=== PATIENT | female | born 1975 ===

== ENCOUNTER 2019-12-05 09:50 | Outpatient (REF) | payer OTHER, SELFPAY ==
--- NOTE | 2019-12-05 10:04 | XR_ITS ---
EXAMINATION: XR LUMBOSACRAL SPINE CLINICAL INFORMATION: No sludge. COMPARISON: None TECHNIQUE: Three views of the lumbosacral spine. FINDINGS: There is normal lumbar lordosis. The vertebral heights, alignment and disc heights are normal. No visible acute fracture, dislocation or lytic process seen. There is mild loss of L2-L3 and L5-S1 disc heights with ventral spondylosis. No lytic or sclerotic process seen. XR/XR lumbar spine 2-3V IMPRESSION: No acute fracture, dislocation or subluxation. Mild degenerative disc changes L4-L5 disc level.
[2019-12-05 10:14] LABS: MANUAL DIFF FLAG NO
[2019-12-05 10:21] LABS: Basophils Percent Auto 0.6 % (0-2); Eosinophils Absolute Auto 0.1 X10*3/uL (0.0-0.4); Eosinophils Percent Auto 1.4 % (0-4); Hematocrit 33.2 % (37-47); Hemoglobin 9.8 g/dl (12.0-16.0); Imm Gran Abs Auto 0.02 X10*3/uL (0.00-0.03); Imm Gran Pct Auto 0.3 % (0.0-0.4); Lymphocytes Absolute Auto 1.9 X10*3/uL (1.2-4.9); Lymphocytes Percent Auto 27.7 % (20-40); Mean Corpuscular HGB Conc 29.5 g/dl (31.0-35.0); Mean Corpuscular Hemoglobin 22.3 pg (27.0-33.0); Mean Corpuscular Volume 75.5 fL (80-98); Mean Platelet Volume 9.9 fL (9.4-12.3); Monocytes Absolute Auto 0.4 X10*3/uL (0.1-1.2); Monocytes Percent Auto 6.4 % (2-11); Neutrophils Absolute Auto 4.4 X10*3/uL (2.0-8.3); Neutrophils Percent Auto 63.6 % (45-73); Platelet Count 469 X10*3/uL (160-400); Red Cell Distribution Width 18.2 % (11.0-16.0); White Blood Count 6.9 X10*3/uL (4.8-10.8)
[2019-12-05 10:51] LABS: Anion Gap 13 (12-20); Blood Urea Nitrogen 14 mg/dL (9-16); Calcium 8.7 mg/dL (8.4-10.2); Carbon Dioxide 25 mmol/L (22-29); Chloride 106 mmol/L (96-108); Estimated Glomerular Filt Rate > 60; Glucose Random 95 mg/dL (60-115); Potassium 4.4 mmol/l (3.3-5.1); Sodium 140 mmol/L (135-145)
== END 2019-12-05 09:51 | disposition home or self-care (01) ==
LOC: HO.LAB 09:50
PROVIDERS: Visit Provider Internal Medicine
DX: M54.9 Dorsalgia, unspecified (principal); R10.9 Unspecified abdominal pain; R51.9 Headache, unspecified
CPT/HCPCS: 36415; 72100; 80048; 85025

== ENCOUNTER 2019-12-17 10:10 | Outpatient (REF) | payer OTHER, SELFPAY ==
--- NOTE | 2019-12-17 10:14 | US_ITS ---
EXAMINATION: US ABDOMEN COMPLETE CLINICAL INFORMATION: Unspecified abdominal pain. COMPARISON: CT abdomen and pelvis without contrast dated 08/26/2013. MRI abdomen without and with contrast dated 12/16/2009. TECHNIQUE: Real-time imaging of the abdominal viscera. FINDINGS: PANCREAS: The head of the pancreas is normal-appearing. The body and tail are not well visualized due to bowel gas. ABDOMINAL AORTA: The proximal, mid, and distal segments are normal in caliber. INFERIOR VENA CAVA: Visualized portions are normal. LIVER: The liver is normal in size. The liver contour is normal. Parenchymal echogenicity is normal. There is a 1.6 x 2.1 x 1.8 cm hyperechoic lesion high in the right lobe of the liver. This likely corresponds to known hemangioma. No other focal liver lesion is seen. There is no intrahepatic biliary duct dilatation seen. GALLBLADDER: Surgically absent. COMMON BILE DUCT: Normal in caliber measuring 0.7 cm in diameter. RIGHT KIDNEY: Normal. No hydronephrosis. No renal calculi or focal parenchymal lesions. The kidney measures 12.1 cm in maximum dimension. LEFT KIDNEY: There is a 3 mm echogenic density with twinkle artifact in the upper pole of the left kidney questionable for a stone. No hydronephrosis. No focal parenchymal lesions. The kidney measures 11.5 cm in maximum dimension. SPLEEN: Normal. The spleen measures 9.7 cm in maximum dimension. FREE FLUID: None. US/US abdomen complete IMPRESSION: Post cholecystectomy. Echogenic lesion in the right lobe of the liver similar in size to previous exams likely corresponding to known hemangioma. Question small left renal stone.
== END 2019-12-17 10:11 | disposition home or self-care (01) ==
LOC: HO.US 10:10
PROVIDERS: Visit Provider Internal Medicine
DX: R10.9 Unspecified abdominal pain (principal)
CPT/HCPCS: 76700

== ENCOUNTER 2020-01-05 11:16 | Outpatient (REF) | payer OTHER, SELFPAY ==
[2020-01-06 09:17] LABS: CT PCR NOT DETECTED (Not Detect.); NG PCR NOT DETECTED (Not Detect.)
[2020-01-06 13:21] LABS: BV Int Neg Control Negative (Negative); BV Int Pos Control Positive (Positive)
== END 2020-01-05 11:17 | disposition home or self-care (01) ==
LOC: HO.LAB 11:16
PROVIDERS: Visit Provider Advanced Practice Midwife
DX: Z01.419 Encounter for gynecological examination (general) (routine) without abnormal findings (principal); Z20.2 Contact with and (suspected) exposure to infections with a predominantly sexual mode of transmission; R10.2 Pelvic and perineal pain; L65.9 Nonscarring hair loss, unspecified; R31.9 Hematuria, unspecified; D64.9 Anemia, unspecified; N76.0 Acute vaginitis; B96.89 Other specified bacterial agents as the cause of diseases classified elsewhere
CPT/HCPCS: 87480; 87491; 87510; 87591; 87660

== ENCOUNTER 2020-01-05 13:31 | Outpatient (REF) | payer OTHER, SELFPAY ==
[2020-01-05 15:29] LABS: Thyroid Stimulating Hormone 0.94 uIU/mL (0.32-4.0)
[2020-01-05 16:46] LABS: Syphilis Screen Nonreactive (Nonreactive)
[2020-01-06 04:41] LABS: HBsAGNum1 0.53 S/CO (0.00-0.99); HIV AB/AG Nonreactive (Nonreactive); HIV Num 1 0.11 S/CO (0.00-0.99); Hepatitis B Surface Antigen Negative (Negative); ~Hepatitis C Antibody Nonreactive (Nonreactive)
== END 2020-01-05 13:32 | disposition home or self-care (01) ==
LOC: HO.LAB 13:31
PROVIDERS: PCP Internal Medicine; Visit Provider Advanced Practice Midwife
DX: Z20.2 Contact with and (suspected) exposure to infections with a predominantly sexual mode of transmission (principal); D64.9 Anemia, unspecified; L65.9 Nonscarring hair loss, unspecified
CPT/HCPCS: 84443; 86780; 86803; 87340; 87389

== ENCOUNTER 2020-03-31 11:54 | Outpatient (REF) | payer OTHER, SELFPAY ==
[2020-03-31 12:58] LABS: MANUAL DIFF FLAG NO
[2020-03-31 13:02] LABS: Basophils Percent Auto 0.4 % (0-2); Eosinophils Percent Auto 0.5 % (0-4); Hematocrit 28.6 % (37-47); Imm Gran Abs Auto 0.03 X10*3/uL (0.00-0.03); Imm Gran Pct Auto 0.4 % (0.0-0.4); Lymphocytes Absolute Auto 1.9 X10*3/uL (1.2-4.9); Lymphocytes Percent Auto 25.8 % (20-40); Mean Corpuscular Hemoglobin 20.1 pg (27.0-33.0); Mean Corpuscular Volume 71.9 fL (80-98); Monocytes Absolute Auto 0.5 X10*3/uL (0.1-1.2); Monocytes Percent Auto 6.3 % (2-11); Neutrophils Percent Auto 66.6 % (45-73); Platelet Count 499 X10*3/uL (160-400); Red Blood Count 3.98 X10*6/uL (4.20-5.50); Red Cell Distribution Width 17.5 % (11.0-16.0); White Blood Count 7.5 X10*3/uL (4.8-10.8)
[2020-03-31 13:27] LABS: Iron 15 mcg/dL (30-160); Percent Iron Saturation 3 % (15-50); Total Iron Binding Capacity 474 mcg/dL (228-428); Unsaturated Iron Binding 459 ug/dL
[2020-03-31 13:59] LABS: Ferritin < 1 ng/mL (10-250)
== END 2020-03-31 11:55 | disposition home or self-care (01) ==
LOC: HO.LAB 11:54
PROVIDERS: PCP Internal Medicine; Visit Provider Internal Medicine
DX: D50.9 Iron deficiency anemia, unspecified (principal)
CPT/HCPCS: 36415; 82728; 83540; 85025

== ENCOUNTER 2020-04-12 17:38 | Emergency (ER) | payer OTHER, SELFPAY ==
--- NOTE | ~2020-04-12 | XR_ITS ---
Examination: XR forearm RT 2V, XR elbow RT 2V Indication: pain, distal swelling Comparison: No pertinent prior studies are currently available for comparison. Technique: 2 views of the right forearm and 2 additional views of the right elbow obtained Findings: No significant elbow joint effusion. Bones are normal anatomic alignment. I do not appreciate any acute fracture or dislocation on these images. Surrounding soft tissue grossly unremarkable. No radiopaque foreign body seen. XR/XR forearm RT 2V Impression: No acute bony abnormality.
--- NOTE | ~2020-04-12 | XR_ITS ---
Examination: XR forearm RT 2V, XR elbow RT 2V Indication: pain, distal swelling Comparison: No pertinent prior studies are currently available for comparison. Technique: 2 views of the right forearm and 2 additional views of the right elbow obtained Findings: No significant elbow joint effusion. Bones are normal anatomic alignment. I do not appreciate any acute fracture or dislocation on these images. Surrounding soft tissue grossly unremarkable. No radiopaque foreign body seen. XR/XR elbow RT 2V Impression: No acute bony abnormality.
[2020-04-12 17:46] VITALS: BP 118/83; PULSE 94; RESP 16; TEMP 36.6; O2SAT 100; BMI 31.3
--- NOTE | 2020-04-12 19:15 | ED.EXTPRO ---
HPI - Extremity Problem General Chief complaint: Extremity Problem Stated complaint: arm pain Time Seen by Provider: 04/12/20 18:51 Source: patient Mode of arrival: ambulatory Limitations: no limitations History of Present Illness HPI Narrative: 44 yo healthy female presenting with non-traumatic right arm pain for the last 3 weeks. She reports it initially started in her under arm area and then went away. It is now in her right elbow and forearm with swelling in both areas. She denies trauma or injury. No numbness, tingling or weakness. She has pain when trying to lift things as small as milk carton. No fever or chills. She has not taken any medications for the pain. MD Complaint: extremity pain and extremity swelling Onset (ago): week(s) (3) Pain Consistency: constant Location: right, upper extremity and elbow Quality: aching and dull Radiation: distal Relieving factors: cold therapy and rest Exacerbating factors: range of motion and palpation Associated symptoms: denies other symptoms Related Data Home Medications Medication Instructions Recorded Confirmed multivitamin with iron 1 tab PO DAILY 03/31/20 Previous Rx's Medication Instructions Recorded metronidazole 0.75 % vaginal gel 1 appful VAGINAL BEDTIME 5 Days 01/05/20 #70 g ibuprofen 600 mg PO Q8H PRN #20 tab 04/12/20 lidocaine [Lidoderm] 1 patch TOPICAL DAILY #15 ea 04/12/20 Allergies Allergy/AdvReac Type Severity Reaction Status Date / Time No Known Allergies Allergy Mild NOT Verified 03/31/20 10:55 APPLICABLE Review of Systems Review of Systems: Constitutional: No Fever, No Chills Musculoskeletal: + joint pain, + Myalgias Skin: No Skin Lesions, No rash Neuro: No Weakness, No Numbness, No Headache Psych: No Anxiety/Panic, No Depression Heme/Lymph: No Bruising, No Lymphadenopathy PMFSH Past Medical History Attestation statement: The following information was validated with the patient. Surgical History History of cholecystectomy Family History Family History Father No problems noted. Mother Diabetes Hypertension Sister Asthma Family history of thyroid problem Social History Social History (Updated 03/31/20 @ 10:56 by Jigna C Oc, RMA) Alcohol intake: current Alcohol intake frequency: holidays/special occasions only Smoking Status: Current every day smoker Tobacco Type: Cigarette Cigarettes Per Day: 10 Advance Directives: No Advance Directives Information Provided: Yes Physical Exam Vital Signs: Vital Signs: Last Vital Signs Temp 97.9 F 04/12/20 17:46 Pulse 94 04/12/20 17:46 Resp 16 04/12/20 17:46 BP 118/83 04/12/20 17:46 Pulse Ox 100 04/12/20 17:46 Body Mass Index 31.3 Appearance: Alert. Oriented X3. No acute distress. HEENT: normal inspection CVS: Normal heart rate and rhythm. Pulses normal. Respiratory: No respiratory distress. Skin: Skin warm and dry. Normal skin color. Normal skin turgor. No rashes. Extremities: right arm with lateral elbow swelling within the lateral epicondyle at extensor tendon insertion site, mild distal forearm swelling with minimal tenderness, warm and well perfused with 2+ radial pulse. normal associate director qa strength, normal ROM of wrist and fingers, normal but painful ROM of the right elbow. right shoulder is unremarkable. Neuro: Oriented X 3. No motor deficit. No sensory deficit. Course Course Course Narrative: 44 y/o female presenting with right arm pain - elbow and forearm. Exam is consistent with lateral tendonitis, given swelling will get x-rays. Doubt UE DVT, no risk factors. Reevaluation(s) Reevaluation #1: XR's are negative. Will treat for acute tennis elbow and refer to ortho if no improvement. Patient counseled and is stable for discharge. Critical Care Time Critical Care Time Critical Care Time: No Discharge Plan Discharge Clinical Impression: Epicondylitis, lateral (tennis elbow) Qualifiers: Laterality: right Qualified Code(s): M77.11 - Lateral epicondylitis, right elbow Patient Disposition: Home, Self-Care Instructions: Tennis Elbow (ED) Additional Instructions: Your x-rays today were normal. Your pain is likely due to inflammation and swelling of the tendon in your elbow. Take the prescribed anti-inflammatory medication every 6 hours as needed for pain and swelling. Use ice several times per day. Limit use of your right arm, let it rest and heal. Follow up with Orthopedics in 1 week if no improvement. Follow up with your doctor this week as needed. Prescriptions: New ibuprofen 600 mg tablet 600 mg PO Q8H PRN (Reason: pain) Qty: 20 RF: 0 lidocaine [Lidoderm] 5 % adhesive patch,medicated 1 patch topical DAILY Qty: 15 RF: 0 No Action multivitamin with iron [Hair Vitamins] Tablet 1 tab PO DAILY RF: 0 metronidazole [Metrogel Vaginal] 0.75 % gel 1 appful vaginal BEDTIME 5 Days Qty: 70 RF: 4 Referrals: Brayan Atkinson MD [Physician] - 2 days (lateral epicondylitis )
[2020-04-12 20:26] VITALS: BP 114/77; PULSE 95; RESP 16; O2SAT 100
[2020-04-12] MEDS: Ibuprofen 600 MG TABLET PO (20:30)
== END 2020-04-12 20:35 | disposition home or self-care (01) ==
PROVIDERS: Emergency Provider Internal Medicine; PCP Internal Medicine
DX: M77.11 Lateral epicondylitis, right elbow (principal); F17.210 Nicotine dependence, cigarettes, uncomplicated
CPT/HCPCS: 73070; 73090; 99283; 99284

== ENCOUNTER 2020-05-05 13:52 | Outpatient (REF) | payer OTHER, SELFPAY ==
--- NOTE | ~2020-05-05 | US_ITS ---
EXAMINATION: ULTRASOUND OF THE PELVIS CLINICAL INFORMATION: Pelvic and perineal pain. COMPARISON: CT 08/26/2013. TECHNIQUE: Transabdominal and transvaginal pelvic ultrasound. A transvaginal study was performed in addition to the transabdominal study which did not yield an adequate examination of the uterus and ovaries due to superimposed distended gas-filled loops of bowel. FINDINGS: The uterus is normal in size and appearance, measuring 8.4 x 4.8 x 6.7 cm longitudinally, anteroposteriorly and transversely. The endometrial stripe thickness is prominent, measuring 1.8 cm in thickness. No focal myometrial mass is seen. Nabothian cysts are noted. The ovaries bilaterally are visualized and appear normal, with the right ovary measuring 2.4 x 1.3 x 1.2 cm and the left ovary measuring 2.9 x 2.2 x 2 cm. There is a dominant left ovarian follicle noted. No adnexal mass or free fluid collection seen. US/US pelvic and transvaginal IMPRESSION: Thick appearance of the endometrium is nonspecific. Correlate with phase of cycle. Normal appearance of the ovaries.
== END 2020-05-05 13:53 | disposition home or self-care (01) ==
LOC: HO.US 13:52
PROVIDERS: PCP Internal Medicine; Visit Provider Advanced Practice Midwife
DX: R10.2 Pelvic and perineal pain (principal)
CPT/HCPCS: 76830; 76856

== ENCOUNTER → 2020-05-12 13:36 | Outpatient (BNVA) | payer OTHER, SELFPAY | PROVIDERS: PCP Internal Medicine; Visit Provider Advanced Practice Midwife ==

== ENCOUNTER 2020-10-02 19:21 | Emergency (ER) | payer OTHER, SELFPAY ==
[2020-10-02 19:45] VITALS: BP 127/82; PULSE 88; RESP 16; TEMP 36.8; BMI 31.3
[2020-10-02 20:05] LABS: Glucose Urine UA NEG (NEG); Leukocyte Esterase Urine NEG (NEG); Nitrite Urine NEG (NEG); Specific Gravity - Urine >= 1.030 (1.005-1.025); UACC Culture Trigger NO; Urine Blood 3+ (NEG); Urine Ketones 5 MG/DL (NEG); Urine Protein TRACE MG/DL (NEG-TRACE)
[2020-10-02 20:08] LABS: Appearance Urine HAZY; Color Urine YELLOW; UPreg QC Valid YES; Urine Pregnancy NEGATIVE (NEGATIVE)
[2020-10-02 20:16] LABS: Amorphous Sediment Urine TRACE /LPF; Bacteria Urine TRACE /LPF; Mucus Urine 3+ /LPF; Squamous Epithelial Cell Urine 2+ /LPF; WBC Urine 0 /HPF (0-4)
[2020-10-02 20:50] LABS: MANUAL DIFF FLAG NO
[2020-10-02 20:51] LABS: Basophils Percent Auto 0.5 % (0-2); Eosinophils Absolute Auto 0.1 X10*3/uL (0.0-0.4); Eosinophils Percent Auto 1.1 % (0-4); Hemoglobin 8.1 g/dl (12.0-16.0); Imm Gran Abs Auto 0.03 X10*3/uL (0.00-0.03); Imm Gran Pct Auto 0.4 % (0.0-0.4); Lymphocytes Absolute Auto 1.9 X10*3/uL (1.2-4.9); Lymphocytes Percent Auto 23.3 % (20-40); Mean Corpuscular HGB Conc 28.9 g/dl (31.0-35.0); Mean Corpuscular Hemoglobin 20.8 pg (27.0-33.0); Mean Platelet Volume 9.4 fL (9.4-12.3); Monocytes Absolute Auto 0.5 X10*3/uL (0.1-1.2); Monocytes Percent Auto 5.7 % (2-11); Neutrophils Absolute Auto 5.7 X10*3/uL (2.0-8.3); Platelet Count 443 X10*3/uL (160-400); Red Blood Count 3.89 X10*6/uL (4.20-5.50); White Blood Count 8.3 X10*3/uL (4.8-10.8)
[2020-10-02 21:17] LABS: Alanine Aminotransferase 15 U/L (0-31); Albumin Level 4.2 g/dL (3.5-5.0); Alkaline Phosphatase 93 U/L (39-117); Anion Gap 13 (12-20); Aspartate Amino Transferase 21 U/L (5-31); Bilirubin Total 0.3 mg/dL (0.0-1.0); Blood Urea Nitrogen 10 mg/dL (9-16); Calcium 9.1 mg/dL (8.4-10.2); Carbon Dioxide 22 mmol/L (22-29); Chloride 108 mmol/L (96-108); Creatinine Clr Calc Pharmacy 85.5; Estimated Glomerular Filt Rate > 60; Glucose Random 86 mg/dL (60-115); Potassium 4.4 mmol/L (3.3-5.1); Sodium 139 mmol/L (135-145); Total Protein 7.3 g/dL (6.5-8.0)
--- NOTE | 2020-10-02 21:31 | ED.ABDPAIN ---
HPI - Abdominal Pain General Chief Complaint: Abdominal Pain Stated Complaint: Dental mouth/Left sided pain Time Seen by Provider: 10/02/20 21:31 Source: patient Mode of arrival: ambulatory History of Present Illness HPI narrative: 45-year-old female with presentation for ulceration to the right posterior portion of the hard palate, patient wears dentures, this ulceration has been ongoing for 1 week and patient states started off with ?a cut?. She denies any fevers, chills but states that she is having pain into the nose and right cheek. She states she has a bad taste in her mouth, but has continued to wear her dentures. In addition, patient is concerned regarding 6 weeks of menstrual bleeding. She knows that she has menorrhagia NANDO with uterine fibroids but states that this time it is been lasting longer than usual. Patient endorses that she has been offered control previously but has declined and the iron pills that she has been provided she stop taking because they were making her nauseous. She denies feeling dizzy but states that she does feel fatigued. She is also concerned about 3 weeks left flank discomfort that has not been associated with any fever, chills, nausea, vomiting, change of bowel habits. Related Data Home Medications Medication Instructions Recorded Confirmed multivitamin with iron (Hair 1 tab PO DAILY 03/31/20 Vitamins) Previous Rx's Medication Instructions Recorded metronidazole 0.75 % vaginal gel 1 appful VAGINAL BEDTIME 5 Days 01/05/20 (Metrogel Vaginal) #70 g ibuprofen 600 mg tablet 600 mg PO Q8H PRN #20 tab 04/12/20 lidocaine 5 % topical patch 1 patch TOPICAL DAILY #15 ea 04/12/20 (Lidoderm) ferrous sulfate 325 mg (65 mg 325 mg PO BID #180 tab 05/10/20 iron) tablet amoxicillin 875 mg-potassium 1 tab PO Q12H 5 Days #10 tab 10/02/20 clavulanate 125 mg tablet (Augmentin) Allergies Allergy/AdvReac Type Severity Reaction Status Date / Time No Known Allergies Allergy Mild NOT Verified 10/02/20 19:45 APPLICABLE Review of Systems Review of Systems Pertinent positives and negatives as stated in HPI 10 point review of systems is otherwise negative. Physical Exam Vital Signs: Vital Signs: Last Vital Signs Temp 98.2 F 10/02/20 21:52 Pulse 75 10/02/20 21:52 Resp 18 10/02/20 21:52 BP 108/65 10/02/20 21:52 Pulse Ox 94 10/02/20 21:52 Body Mass Index 31.3 VITAL SIGNS: Reviewed. GENERAL: Well developed, well nourished, in no acute distress. HEAD: Normocephalic/atraumatic EYES: PERRLA, EOMI EARS: Ext canals without abnormality NOSE: Nares patent bilateral, on gross inspection no ulcerations noted an either nare OROPHARYNX: no oral lesions noted, posterior pharynx clear and non-erythematous without noted tonsillar enlargement/erythema/exudates, ulceration noted to the right posterior hard palate with overlying yellowish tissue NECK: Supple, no adenopathy LUNGS: Normal breath sounds. No adventitious sounds or accessory muscle use. CARDIOVASCULAR: Regular rate and rhythm without noted murmurs ABDOMEN: Soft, non-tender, non-distended with bowel sounds. SKIN: Inspection of the skin reveals no rashes, pallor NEUROLOGIC: Alert and oriented x 4. Strength and sensation to light touch were grossly intact x 4. Course Course Course Narrative: 45-year-old female with history and clinical presentation concerning for pressure ulcer to the right hard palate and will be started on antibiotics with strict instructions to follow-up with dentistry on Sunday morning. Otherwise, patient with menorrhagia and although experiencing fatigue she is neither dizzy nor hypoxic or tachypneic and review of lab work is absent for tachycardia or hypotension. Patient does have good follow-up this Sunday with her broadband installer and we discussed the importance of her moving forward with definitive medical interventions in the form of control as she is uninterested an surgical interventions. MDM - Abdominal Pain Lab Data Result diagrams: 10/02/20 20:46 10/02/20 20:46 Labs: Lab Results 10/02/20 10/02/20 10/02/20 Range/Units 20:00 20:00 20:46 WBC 8.3 (4.8-10.8) X10*3/uL RBC 3.89 L (4.20-5.50) X10*6/uL Hgb 8.1 L (12.0-16.0) g/dl Hct 28.0 L (37-47) % MCV 72.0 L (80-98) fL MCH 20.8 L (27.0-33.0) pg MCHC 28.9 L (31.0-35.0) g/dl RDW 21.0 H (11.0-16.0) % Plt Count 443 H (160-400) X10*3/uL MPV 9.4 (9.4-12.3) fL Immature Gran % (Auto) 0.4 (0.0-0.4) % Neut % (Auto) 69.0 (45-73) % Lymph % (Auto) 23.3 (20-40) % [place] % (Auto) 5.7 (2-11) % Eos % (Auto) 1.1 (0-4) % Baso % (Auto) 0.5 (0-2) % Lymph # (Auto) 1.9 (1.2-4.9) X10*3/uL [place] # (Auto) 0.5 (0.1-1.2) X10*3/uL Eos # (Auto) 0.1 (0.0-0.4) X10*3/uL Baso # (Auto) 0.0 (0.0-0.2) X10*3/uL Abs Immat Gran (auto) 0.03 (0.00-0.03) X10*3/uL Absolute Neuts (auto) 5.7 (2.0-8.3) X10*3/uL Absolute Nucleated RBC 0.000 (0.0-0.012) X10*3/uL Nucleated RBC % (auto) 0.0 (0.0-0.2) /100WBC Sodium (135-145) mmol/L Potassium (3.3-5.1) mmol/L Chloride (96-108) mmol/L Carbon Dioxide (22-29) mmol/L Anion Gap (12-20) BUN (9-16) mg/dL Creatinine (0.5-1.4) mg/dL Estim Creat Clear Calc Estimated GFR Random Glucose (60-115) mg/dL Calcium (8.4-10.2) mg/dL Total Bilirubin (0.0-1.0) mg/dL AST (5-31) U/L ALT (0-31) U/L Alkaline Phosphatase (39-117) U/L Total Protein (6.5-8.0) g/dL Albumin (3.5-5.0) g/dL Urine Color YELLOW Urine Appearance HAZY Urine pH 6.0 (5.0-8.0) Ur Specific [place] >= 1.030 H (1.005-1.025) Urine Protein TRACE (NEG-TRACE) MG/DL Urine Glucose (UA) NEG (NEG) MG/DL Urine Ketones 5 (NEG) MG/DL Urine Blood 3+ H (NEG) Urine Nitrite NEG (NEG) Ur Leukocyte Esterase NEG (NEG) Urine RBC 15-29 H (0) /HPF Urine WBC 0 (0-4) /HPF Ur Squamous Epith Cells 2+ /LPF Amorphous Sediment TRACE /LPF Urine Bacteria TRACE /LPF Urine Mucus 3+ /LPF Urine Test NEGATIVE (NEGATIVE) 10/02/20 Range/Units 20:46 WBC (4.8-10.8) X10*3/uL RBC (4.20-5.50) X10*6/uL Hgb (12.0-16.0) g/dl Hct (37-47) % MCV (80-98) fL MCH (27.0-33.0) pg MCHC (31.0-35.0) g/dl RDW (11.0-16.0) % Plt Count (160-400) X10*3/uL MPV (9.4-12.3) fL Immature Gran % (Auto) (0.0-0.4) % Neut % (Auto) (45-73) % Lymph % (Auto) (20-40) % [place] % (Auto) (2-11) % Eos % (Auto) (0-4) % Baso % (Auto) (0-2) % Lymph # (Auto) (1.2-4.9) X10*3/uL [place] # (Auto) (0.1-1.2) X10*3/uL Eos # (Auto) (0.0-0.4) X10*3/uL Baso # (Auto) (0.0-0.2) X10*3/uL Abs Immat Gran (auto) (0.00-0.03) X10*3/uL Absolute Neuts (auto) (2.0-8.3) X10*3/uL Absolute Nucleated RBC (0.0-0.012) X10*3/uL Nucleated RBC % (auto) (0.0-0.2) /100WBC Sodium 139 (135-145) mmol/L Potassium 4.4 (3.3-5.1) mmol/L Chloride 108 (96-108) mmol/L Carbon Dioxide 22 (22-29) mmol/L Anion Gap 13 (12-20) BUN 10 (9-16) mg/dL Creatinine 0.94 (0.5-1.4) mg/dL Estim Creat Clear Calc 85.5 Estimated GFR > 60 Random Glucose 86 (60-115) mg/dL Calcium 9.1 (8.4-10.2) mg/dL Total Bilirubin 0.3 (0.0-1.0) mg/dL AST 21 (5-31) U/L ALT 15 (0-31) U/L Alkaline Phosphatase 93 (39-117) U/L Total Protein 7.3 (6.5-8.0) g/dL Albumin 4.2 (3.5-5.0) g/dL Urine Color Urine Appearance Urine pH (5.0-8.0) Ur Specific [place] (1.005-1.025) Urine Protein (NEG-TRACE) MG/DL Urine Glucose (UA) (NEG) MG/DL Urine Ketones (NEG) MG/DL Urine Blood (NEG) Urine Nitrite (NEG) Ur Leukocyte Esterase (NEG) Urine RBC (0) /HPF Urine WBC (0-4) /HPF Ur Squamous Epith Cells /LPF Amorphous Sediment /LPF Urine Bacteria /LPF Urine Mucus /LPF Urine Test (NEGATIVE) Discharge Plan Discharge Clinical Impression: Hard palate ulcer, Menorrhagia Patient Disposition: Home, Self-Care Instructions: Menorrhagia (ED) Additional Instructions: 1. Resume all home medications as prescribed. 2. Complete entire course of antibiotics and follow up with the dentist on Sunday morning. Stop using your upper dentures until you are seen by a dentist as this may assist in the healing process. 3. Follow-up with your broadband installer as scheduled on Sunday for treatment of your menorrhagia. Return to the ER for acute worsening of any symptoms. Prescriptions: New amoxicillin-pot clavulanate [Augmentin] 875-125 mg tablet 1 tab PO Q12H 5 Days Qty: 10 RF: 0 No Action ferrous sulfate 325 mg (65 mg iron) tablet 325 mg PO BID Qty: 180 RF: 8 ibuprofen 600 mg tablet 600 mg PO Q8H PRN (Reason: pain) Qty: 20 RF: 0 lidocaine [Lidoderm] 5 % adhesive patch,medicated 1 patch topical DAILY Qty: 15 RF: 0 multivitamin with iron [Hair Vitamins] Tablet 1 tab PO DAILY RF: 0 metronidazole [Metrogel Vaginal] 0.75 % gel 1 appful vaginal BEDTIME 5 Days Qty: 70 RF: 4 Referrals: Jaya Yousif MD [Primary Care Provider] - 2 days [facility] Past Medical History Source: nursing notes reviewed Surgical History History of cholecystectomy Family History Family History Father No problems noted. Mother Diabetes Hypertension Sister Asthma Family history of thyroid problem Social History Social History Alcohol intake: current Alcohol intake frequency: holidays/special occasions only Patient Tobacco Use Status: Current everyday Tobacco user Cigarettes Per Day: 10 Use of substances other than those prescribed or required for medical reasons: No Advance Directives: No Advance Directives Information Provided: Yes
[2020-10-02] MEDS: Amoxicillin/Potassium Clav 875 MG TABLET PO (21:51)
[2020-10-02 21:52] VITALS: BP 108/65; PULSE 75; RESP 18; TEMP 36.8; O2SAT 94
== END 2020-10-02 22:43 | disposition home or self-care (01) ==
PROVIDERS: Emergency Provider Student in an Organized Health Care Education/Training Program; PCP Internal Medicine
DX: K12.1 Other forms of stomatitis (principal); N92.0 Excessive and frequent menstruation with regular cycle
CPT/HCPCS: 36415; 80053; 81001; 81025; 85025; 99283; 99284

== ENCOUNTER → 2020-10-06 09:35 | Outpatient (BNVA) | payer OTHER, SELFPAY | PROVIDERS: PCP Internal Medicine; Visit Provider Advanced Practice Midwife | DX: N93.9 Abnormal uterine and vaginal bleeding, unspecified (principal); D64.9 Anemia, unspecified | CPT/HCPCS: 81025; 99212 ==

== ENCOUNTER 2020-10-20 18:55 | Emergency (ER) | payer OTHER, SELFPAY ==
--- NOTE | ~2020-10-20 | US_ITS ---
EXAMINATION: US PELVIS CLINICAL INFORMATION: Abnormal bleeding. Evaluate for fibroid. COMPARISON: Ultrasound 05/05/2020 TECHNIQUE: Ultrasound of the pelvis is performed using both transabdominal and transvaginal transducers along with Doppler. Transvaginal imaging is performed due to inadequate visualization transabdominally. FINDINGS: Uterus: The uterus is retroverted and measures 8.3 x 5.0 x 5.5 cm. There are incidentally noted nabothian cysts in the cervix. The double wall endometrial thickness is 2.1 mm. The uterus is smooth in contour and has normal myometrial echogenicity. No visible fibroid. Adnexa: Both ovaries are visualized. There is normal color flow to the adnexa. There is no pelvic ascites or fluid collection. Right ovary measures 3.4 x 2.9 x 1.8 cm. 9 cc volume. Left ovary measures 3.9 x 2.9 x 3.5 cm. 21 cc volume. There is a 2.8 x 2.2 x 1.9 cm anechoic simple physiologic follicular cyst for which no imaging follow-up is recommended. US/US pelvic and transvaginal IMPRESSION: Normal study, unchanged from 05/05/2020.
[2020-10-20 20:49] VITALS: BP 100/66; PULSE 77; RESP 17; TEMP 36.8; O2SAT 100; BMI 31.3
--- NOTE | 2020-10-20 21:15 | ED.GENADULT ---
HPI - General Adult General Chief complaint: General Medical Stated complaint: Menstrual for 2 mos Time Seen by Provider: 10/20/20 20:59 Source: patient Mode of arrival: ambulatory Limitations: no limitations History of Present Illness HPI narrative: 45-year-old female here with complaints of vaginal bleeding for the last 2 months. Patient tells me she was seen here in the end of September for similar complaint and was referred to Gynecology. She saw them on October 06. It was recommended she have an endometrial biopsy. This was scheduled for November 03. She tells me they decided to hold on it control until she had the biopsy. She also has an ultrasound scheduled for October 26. The patient tells me she is here today because the bleeding has continued. She is using approximately 10 tampons in 10 pads a day. It is associated with lower abdominal cramping and she often has large clots. She feels lightheaded and dizzy with moving around. She is taking iron supplements. Also complaining of right ear pain and itching for several days Related Data Previous Rx's Medication Instructions Recorded ibuprofen 600 mg tablet 600 mg PO Q8H PRN #20 tab 04/12/20 ferrous sulfate 325 mg (65 mg 325 mg PO BID #180 tab 05/10/20 iron) tablet amoxicillin 875 mg-potassium 1 tab PO Q12H 5 Days #10 tab 10/02/20 clavulanate 125 mg tablet (Augmentin) amoxicillin 500 mg tablet 500 mg PO BID #20 tab 10/20/20 ciprofloxacin 0.3 %-dexamethasone 4 drp OTIC (EARS) BID 7 Days #7.5 10/20/20 0.1 % ear drops,suspension ml (Ciprodex) medroxyprogesterone 10 mg tablet 10 mg PO DAILY #21 tab 10/20/20 (Provera) Allergies Allergy/AdvReac Type Severity Reaction Status Date / Time No Known Allergies Allergy Mild NOT Verified 10/20/20 20:49 APPLICABLE Review of Systems Review of Systems: Yes all other systems are reviewed and are negative Constitutional: Constitutional: Reports no additional constitutional complaints, Denies body ache(s), Denies chills, Denies fever(s), Denies headache(s) and Denies weakness Eyes: Eyes: Reports no additional eye complaints and Denies change in vision ENT: Reports system reviewed and no additional complaints, except as documented, Reports dizziness, Reports otalgia, Denies headache(s), Denies nasal congestion, Denies nasal discharge and Denies neck pain Cardiovascular: Cardiovascular: Reports no additional cardiovascular complaints, Denies chest pain, Denies leg edema and Denies dyspnea Respiratory: Respiratory: Reports no additional respiratory complaints, Denies cough and Denies dyspnea Gastrointestinal: Gastrointestinal: Reports no additional gastrointestinal complaints, Denies abdominal pain, Denies diarrhea, Denies nausea and Denies vomiting Genitourinary: Genitourinary: Reports no additional female genitourinary complaints, Reports abnormal vaginal bleeding and Denies urinary incontinence Musculoskeletal: Musculoskeletal: Reports no additional musculoskeletal complaints, Denies back pain, Denies arthralgias, Denies joint swelling, Denies neck pain, Denies numbness and Denies tingling Integumentary/Breasts: Skin/Breast: Reports system reviewed and no additional complaints, except as docu and Denies rash Neurologic: Reports system reviewed and no additional complaints, except as documented, Denies Abnormal speech present, Reports dizziness, Denies headache(s), Denies numbness, Denies tingling and Denies weakness PMFSH Past Medical History Attestation statement: The following information was validated with the patient. Source: old records reviewed and nursing notes reviewed Surgical History History of cholecystectomy Family History Family History Father No problems noted. Mother Diabetes Hypertension Sister Asthma Family history of thyroid problem Social History Social History Alcohol intake: current Alcohol intake frequency: holidays/special occasions only Patient Tobacco Use Status: Current everyday Tobacco user Cigarettes Per Day: 10 Advance Directives: No Advance Directives Information Provided: No Patient : No Physical Exam Vital Signs: Vital Signs: Last Vital Signs Temp 99.3 F 10/20/20 22:42 Pulse 77 10/20/20 22:42 Resp 16 10/20/20 22:42 BP 116/72 10/20/20 22:42 Pulse Ox 98 10/20/20 22:42 Body Mass Index 31.3 Const: General: cooperative, healthy appearing, comfortable and no acute distress Orientation/consciousness: patient oriented x3 Limitations: no limitations HENMT: Head: Yes normal to inspection Ears: hearing grossly normal bilaterally, TM normal on the left, mastoids normal, no periauricular adenopathy and TM abnormal (Right TM bulging with canal that is swell in and painful) General nose exam: Normal external nose present Face and sinus: Yes normal facial exam Mouth: Normal oral and palatal mucosa present Throat: Yes posterior oropharynx normal Eyes: General: appearance normal, both eyes and all related structures Pupils: Equal, round and reactive pupils present Neck: Neck: Yes normal visual inspection Chest: Chest palpation & inspection: normal inspection of the chest Resp: Effort & Inspection: normal respiratory effort Auscultation: clear to auscultation bilaterally Cardio: Rate: regular rate Rhythm: regular rhythm Peripheral pulses: Peripheral pulses 2+ throughout GI: Inspection: Yes normal to inspection Palpation (GI): Soft to palpation and nontender Auscultation: normal bowel sounds : Other: basil senior nuclear medicine technologist present External Female Exam: normal external appearance Speculum Exam - Vagina: normal appearance of the vagina and vaginal bleeding (Small with small clots) Speculum Exam - Cervix: normal appearance of the cervix Bimanual exam- vagina & uterus: normal bimanual exam Bimanual Exam- Adnexa, other: normal adnexae OB/external & speculum: vaginal bleeding (Small with small clots) Back/Spine/Pelvis: Thoracic/Lumbar Spine: thoracic and lumbar spine normal to inspection Skin: General skin exam: no rashes or lesions noted Neuro: General: patient oriented x3, no focal motor deficits and normal sensation to monofilament Cranial nerves: Yes Equal, round and reactive pupils present Cognition (Neuro): normal cognition Speech: No Abnormal speech present Gait exam (Neuro): Normal gait present Motor exam (neuro): 5/5 motor strength present throughout Extrem: General: Yes normal to inspection Course Course Course Narrative: 45-year-old female here with vaginal bleeding for 2 months. She has seen Gynecology and has plans for follow-up with an endometrial biopsy and ultrasound. She is currently only on iron supplements and not any contraception. She has had continued bleeding quite heavy with clots with associated abdominal cramping and feeling lightheaded and dizzy. Also complaining of right ear pain and itching. Will need labs, pelvic exam, UA, ultrasound. Right ear is consistent with both an otitis externa and media. Will need antibiotic. 2200-labs show hemoglobin 7.6. Hematocrit 26.4. Last hemoglobin on October 02 8.1 and hematocrit 28.0. All other labs are unremarkable. Urine is pending. Pelvic ultrasound normal. Pelvic exam showed a small amount of bleeding with several small clots of evacuated. Orthostatics did have 20 point increase in HR but no change in blood pressure. UA is pending and then will discuss with Gynecology [id number]-discussed with Dr. Hoff from [employer]. Recommended starting Provera 10 mg daily. Recommended patient call tomorrow morning to see if she can get a sooner appointment for a endometrial biopsy and Mirena placement. Reviewed worrisome signs and symptoms when to return to the emergency department. Comfortable discharge home. Medical Decision Making Medical Records Medical records reviewed: Yes I reviewed the patient's medical records. Lab Data Lab results reviewed: Yes I reviewed the patient's lab results. Result diagrams: 10/20/20 21:35 10/20/20 21:35 Labs: Lab Results 10/20/20 10/20/20 10/20/20 Range/Units 21:35 21:35 21:35 WBC 7.7 (4.8-10.8) X10*3/uL RBC 3.58 L (4.20-5.50) X10*6/uL Hgb 7.6 L (12.0-16.0) g/dl Hct 26.4 L (37-47) % MCV 73.7 L (80-98) fL MCH 21.2 L (27.0-33.0) pg MCHC 28.8 L (31.0-35.0) g/dl RDW 22.7 H (11.0-16.0) % Plt Count 377 (160-400) X10*3/uL MPV 9.7 (9.4-12.3) fL Immature Gran % (Auto) 0.4 (0.0-0.4) % Neut % (Auto) 68.1 (45-73) % Lymph % (Auto) 25.0 (20-40) % [place] % (Auto) 4.7 (2-11) % Eos % (Auto) 1.3 (0-4) % Baso % (Auto) 0.5 (0-2) % Lymph # (Auto) 1.9 (1.2-4.9) X10*3/uL [place] # (Auto) 0.4 (0.1-1.2) X10*3/uL Eos # (Auto) 0.1 (0.0-0.4) X10*3/uL Baso # (Auto) 0.0 (0.0-0.2) X10*3/uL Abs Immat Gran (auto) 0.03 (0.00-0.03) X10*3/uL Absolute Neuts (auto) 5.2 (2.0-8.3) X10*3/uL Absolute Nucleated RBC 0.000 (0.0-0.012) X10*3/uL Nucleated RBC % (auto) 0.0 (0.0-0.2) /100WBC PT 11.7 (9.9-13.0) SEC INR 1.0 (0.9-1.1) Sodium 141 (135-145) mmol/L Potassium 4.0 (3.3-5.1) mmol/L Chloride 110 H (96-108) mmol/L Carbon Dioxide 25 (22-29) mmol/L Anion Gap 10 L (12-20) BUN 9 (9-16) mg/dL Creatinine 0.83 (0.5-1.4) mg/dL Estim Creat Clear Calc 96.8 Estimated GFR > 60 Random Glucose 107 (60-115) mg/dL Calcium 8.9 (8.4-10.2) mg/dL Total Bilirubin 0.4 (0.0-1.0) mg/dL Direct Bilirubin < 0.2 (0.0-0.5) mg/dL AST 15 (5-31) U/L ALT 14 (0-31) U/L Alkaline Phosphatase 90 (39-117) U/L Total Protein 6.5 (6.5-8.0) g/dL Albumin 3.9 (3.5-5.0) g/dL Urine Color Urine Appearance Urine pH (5.0-8.0) Ur Specific [place] (1.005-1.025) Urine Protein (NEG-TRACE) MG/DL Urine Glucose (UA) (NEG) MG/DL Urine Ketones (NEG) MG/DL Urine Blood (NEG) Urine Nitrite (NEG) Ur Leukocyte Esterase (NEG) Urine RBC (0) /HPF Urine WBC (0-4) /HPF Ur Squamous Epith Cells /LPF Urine Bacteria /LPF Urine Test (NEGATIVE) 10/20/20 10/20/20 Range/Units 23:08 23:08 WBC (4.8-10.8) X10*3/uL RBC (4.20-5.50) X10*6/uL Hgb (12.0-16.0) g/dl Hct (37-47) % MCV (80-98) fL MCH (27.0-33.0) pg MCHC (31.0-35.0) g/dl RDW (11.0-16.0) % Plt Count (160-400) X10*3/uL MPV (9.4-12.3) fL Immature Gran % (Auto) (0.0-0.4) % Neut % (Auto) (45-73) % Lymph % (Auto) (20-40) % Henderson % (Auto) (2-11) % Eos % (Auto) (0-4) % Baso % (Auto) (0-2) % Lymph # (Auto) (1.2-4.9) X10*3/uL [place] # (Auto) (0.1-1.2) X10*3/uL Eos # (Auto) (0.0-0.4) X10*3/uL Baso # (Auto) (0.0-0.2) X10*3/uL Abs Immat Gran (auto) (0.00-0.03) X10*3/uL Absolute Neuts (auto) (2.0-8.3) X10*3/uL Absolute Nucleated RBC (0.0-0.012) X10*3/uL Nucleated RBC % (auto) (0.0-0.2) /100WBC PT (9.9-13.0) SEC INR (0.9-1.1) Sodium (135-145) mmol/L Potassium (3.3-5.1) mmol/L Chloride (96-108) mmol/L Carbon Dioxide (22-29) mmol/L Anion Gap (12-20) BUN (9-16) mg/dL Creatinine (0.5-1.4) mg/dL Estim Creat Clear Calc Estimated GFR Random Glucose (60-115) mg/dL Calcium (8.4-10.2) mg/dL Total Bilirubin (0.0-1.0) mg/dL Direct Bilirubin (0.0-0.5) mg/dL AST (5-31) U/L ALT (0-31) U/L Alkaline Phosphatase (39-117) U/L Total Protein (6.5-8.0) g/dL Albumin (3.5-5.0) g/dL Urine Color YELLOW Urine Appearance CLEAR Urine pH 6.0 (5.0-8.0) Ur Specific [place] >= 1.030 H (1.005-1.025) Urine Protein NEG (NEG-TRACE) MG/DL Urine Glucose (UA) NEG (NEG) MG/DL Urine Ketones NEG (NEG) MG/DL Urine Blood 3+ H (NEG) Urine Nitrite NEG (NEG) Ur Leukocyte Esterase NEG (NEG) Urine RBC 15-29 H (0) /HPF Urine WBC 0 (0-4) /HPF Ur Squamous Epith Cells 1+ /LPF Urine Bacteria TRACE /LPF Urine Test NEGATIVE (NEGATIVE) Imaging Data US - abdomen: Attestation: I personally reviewed and interpreted this imaging study as follows: Radiologist's impression: FINDINGS: Uterus: The uterus is retroverted and measures 8.3 x 5.0 x 5.5 cm.? There are incidentally noted nabothian cysts in the cervix. The double wall endometrial thickness is 2.1 mm.? The uterus is smooth in contour and has normal myometrial echogenicity. ? No visible fibroid. Adnexa: Both ovaries are visualized. There is normal color flow to the adnexa. There is no pelvic ascites or fluid collection. Right ovary measures 3.4 x 2.9 x 1.8 cm. 9 cc volume. Left ovary measures 3.9 x 2.9 x 3.5 cm. 21 cc volume. There is a 2.8 x 2.2 x 1.9 cm anechoic simple physiologic follicular cyst for which no imaging follow-up is recommended. US/US pelvic and transvaginal IMPRESSION: Normal study, unchanged from 05/05/2020. Discharge Plan Discharge Clinical Impression: Abnormal uterine bleeding (AUB), Anemia, Otitis externa, Otitis media Patient Disposition: Home, Self-Care Instructions: Dysfunctional Uterine Bleeding (ED), Ear Infection (ED), Anemia (ED) Additional Instructions: Start the Provera as soon as possible Call tomorrow to try to schedule your biopsy sooner Continue the iron supplement Prescriptions: New medroxyprogesterone [Provera] 10 mg tablet 10 mg PO DAILY Qty: 21 RF: 0 amoxicillin 500 mg tablet 500 mg PO BID Qty: 20 RF: 0 ciprofloxacin-dexamethasone [Ciprodex] 0.3-0.1 % drops,suspension 4 drp otic (ears) BID 7 Days Qty: 7.5 RF: 0 No Action ferrous sulfate 325 mg (65 mg iron) tablet 325 mg PO BID Qty: 180 RF: 8 amoxicillin-pot clavulanate [Augmentin] 875-125 mg tablet 1 tab PO Q12H 5 Days Qty: 10 RF: 0 ibuprofen 600 mg tablet 600 mg PO Q8H PRN (Reason: pain) Qty: 20 RF: 0 Referrals: Juvenal Hoff MD [Physician] - 2 days Stand Alone Forms: Work/School Release
[2020-10-20 21:40] LABS: MANUAL DIFF FLAG NO
[2020-10-20 21:56] LABS: Basophils Percent Auto 0.5 % (0-2); Eosinophils Absolute Auto 0.1 X10*3/uL (0.0-0.4); Eosinophils Percent Auto 1.3 % (0-4); Hematocrit 26.4 % (37-47); Hemoglobin 7.6 g/dl (12.0-16.0); Imm Gran Abs Auto 0.03 X10*3/uL (0.00-0.03); Imm Gran Pct Auto 0.4 % (0.0-0.4); Lymphocytes Absolute Auto 1.9 X10*3/uL (1.2-4.9); Mean Corpuscular HGB Conc 28.8 g/dl (31.0-35.0); Mean Corpuscular Hemoglobin 21.2 pg (27.0-33.0); Mean Corpuscular Volume 73.7 fL (80-98); Mean Platelet Volume 9.7 fL (9.4-12.3); Monocytes Absolute Auto 0.4 X10*3/uL (0.1-1.2); Monocytes Percent Auto 4.7 % (2-11); Neutrophils Absolute Auto 5.2 X10*3/uL (2.0-8.3); Neutrophils Percent Auto 68.1 % (45-73); Platelet Count 377 X10*3/uL (160-400); Red Blood Count 3.58 X10*6/uL (4.20-5.50); Red Cell Distribution Width 22.7 % (11.0-16.0); White Blood Count 7.7 X10*3/uL (4.8-10.8)
[2020-10-20 21:59] LABS: Alanine Aminotransferase 14 U/L (0-31); Albumin Level 3.9 g/dL (3.5-5.0); Alkaline Phosphatase 90 U/L (39-117); Anion Gap 10 (12-20); Aspartate Amino Transferase 15 U/L (5-31); Bilirubin Direct < 0.2 mg/dL (0.0-0.5); Bilirubin Total 0.4 mg/dL (0.0-1.0); Blood Urea Nitrogen 9 mg/dL (9-16); Calcium 8.9 mg/dL (8.4-10.2); Carbon Dioxide 25 mmol/L (22-29); Chloride 110 mmol/L (96-108); Creatinine Clr Calc Pharmacy 96.8; Estimated Glomerular Filt Rate > 60; Glucose Random 107 mg/dL (60-115); Prothrombin Time 11.7 SEC (9.9-13.0); Sodium 141 mmol/L (135-145); Total Protein 6.5 g/dL (6.5-8.0)
[2020-10-20 22:38] VITALS: BP 116/72; PULSE 78
[2020-10-20 22:39] VITALS: BP 118/77; PULSE 87
[2020-10-20 22:40] VITALS: BP 115/74; PULSE 98
[2020-10-20 22:42] VITALS: BP 116/72; PULSE 77; RESP 16; TEMP 37.4; O2SAT 98
[2020-10-20 23:14] LABS: Appearance Urine CLEAR; Color Urine YELLOW; Glucose Urine UA NEG (NEG); Leukocyte Esterase Urine NEG (NEG); Nitrite Urine NEG (NEG); Specific Gravity - Urine >= 1.030 (1.005-1.025); UACC Culture Trigger NO; Urine Blood 3+ (NEG); Urine Ketones NEG (NEG); Urine Protein NEG (NEG-TRACE)
[2020-10-20 23:17] LABS: UPreg QC Valid YES; Urine Pregnancy NEGATIVE (NEGATIVE)
[2020-10-20 23:20] LABS: Bacteria Urine TRACE /LPF; Squamous Epithelial Cell Urine 1+ /LPF; WBC Urine 0 /HPF (0-4)
--- NOTE | 2020-10-20 23:38 | PM.GYNCN ---
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 A pelvic ultrasound is scheduled on 10/26 and the patient is scheduled for an endometrial biopsy/and IUD insertion in the office in the coming few weeks. The patient presented to the emergency room because the bleeding has continued.? She is using approximately 10 pads a day.? It is associated with lower abdominal cramping and she often has large clots.? She feels lightheaded and dizzy with moving around.? She is taking iron supplements. On 10/02 H&H was 8.1/28 The workup done today in the emergency room included H&H of 7.6 /26.7, urine test negative, ultrasound unremarkable cc:: CC: ENROLLMENT ELIGIBILITY REPRESENTATIVE - Review of Systems Review of Systems ROS Unobtainable: All systems reviewed & are unremarkable except as noted in HPI and below Cardiovascular: Denies Palpatations, Loss of consciousness or Chest pain Respiratory: Denies Cough, Wheezing or Shortness of breath Musculoskeletal: Denies Low back pain Gastrointestinal: Denies Heartburn, Constipation, Diarrhea, Nausea or Vomiting Genitourinary: Denies Pain with urination, Burning with urination or Urinary frequency Neurological: Denies Migranes Psychological: Denies Depression OB [facility] Family History Family History Father No problems noted. Mother Diabetes Hypertension Sister Asthma Family history of thyroid problem Surgical History Surgical History History of cholecystectomy Social History Social History Alcohol intake: current Alcohol intake frequency: holidays/special occasions only Patient Tobacco Use Status: Current everyday Tobacco user Cigarettes Per Day: 10 Advance Directives: No Advance Directives Information Provided: No Patient : No Meds Allergies Allergy/AdvReac Type Severity Reaction Status Date / Time No Known Allergies Allergy Mild NOT Verified 10/20/20 20:49 APPLICABLE AUTOMATIC COIL MACHINE OPERATOR Physical Exam Vitals Vital signs: Temp Pulse Resp BP Pulse Ox 99.3 F 77 16 116/72 98 10/20/20 22:42 10/20/20 22:42 10/20/20 22:42 10/20/20 22:42 10/20/20 22:42 Body Mass Index 31.3 Narrative: For Mary Reynolds, COIL WRAPPER pelvic exam shows no active bleeding small blood clots in the vagina otherwise unremarkable, no orthostatic vital signs changes Constitutional General Appearance: Healthy appearing, Well-nourished and Well-developed Psychiatric Mood and Affect: active and alert, normal mood and normal affect Skin Appearance: No rashes and No lesions Lungs Respiratory Effort: No intercostal retractions Auscultation: Clear to auscultation Cardiovascular Auscultation: RRR Abdomen Auscultation/Inspection/Palpation: Normal bowel sounds, Soft, Non-distended and No tenderness AUTOMATIC COIL MACHINE OPERATOR - Results Labs CBC & Chem 7: 10/20/20 21:35 10/20/20 21:35 Labs: Short CBC 10/20/20 Range/Units 21:35 WBC 7.7 (4.8-10.8) X10*3/uL Hgb 7.6 L (12.0-16.0) g/dl Hct 26.4 L (37-47) % Plt Count 377 (160-400) X10*3/uL BMP 10/20/20 21:35 Sodium 141 Potassium 4.0 Chloride 110 H Carbon Dioxide 25 BUN 9 Creatinine 0.83 Calcium 8.9 Liver Function 10/20/20 Range/Units 21:35 Total Bilirubin 0.4 (0.0-1.0) mg/dL Direct Bilirubin < 0.2 (0.0-0.5) mg/dL AST 15 (5-31) U/L ALT 14 (0-31) U/L Alkaline Phosphatase 90 (39-117) U/L Albumin 3.9 (3.5-5.0) g/dL Urine 10/20/20 10/20/20 Range/Units 23:08 23:08 Urine Color YELLOW Urine Appearance CLEAR Urine pH 6.0 (5.0-8.0) Ur Specific [place] >= 1.030 H (1.005-1.025) Urine Protein NEG (NEG-TRACE) MG/DL Urine Glucose (UA) NEG (NEG) MG/DL Urine Test NEGATIVE (NEGATIVE) Assessment and Plan (1) Abnormal uterine bleeding (AUB): Status: Acute Since the patient is a smoker, control pills and tranexamic acid are contraindicated. Recommended to start the patient on Provera 10 mg p.o. q.d. and to expedite EMB/Mirena IUD insertion in the office mayur in addition to Iron sulfate 325 mg p.o. t.i.d.. Instructions to be given to patient to call the office in the morning move up EMB/Mirena IUD mayur and to call or come back to the emergency room if bleeding is heavy. I was consulted on the phone regarding the patient care, I did not see the patient nor examined her.
== END 2020-10-20 23:52 | disposition home or self-care (01) ==
PROVIDERS: Nurse Practitioner Family; Emergency Provider Emergency Medicine; PCP Internal Medicine
DX: N93.9 Abnormal uterine and vaginal bleeding, unspecified (principal); N93.8 Other specified abnormal uterine and vaginal bleeding; H60.93 Unspecified otitis externa, bilateral; H66.93 Otitis media, unspecified, bilateral; D64.9 Anemia, unspecified; Z79.899 Other long term (current) drug therapy
CPT/HCPCS: 36415; 76830; 76856; 80048; 80076; 81001; 81025; 85025; 85610; 99284

== ENCOUNTER 2020-10-22 | Outpatient (REF) | payer OTHER, SELFPAY | END 2020-10-22 00:01 | disposition home or self-care (01) | LOC: HO.HMGCX | PROVIDERS: Visit Provider Advanced Practice Midwife | DX: Z30.430 Encounter for insertion of intrauterine contraceptive device (principal); N93.9 Abnormal uterine and vaginal bleeding, unspecified | CPT/HCPCS: 58100; 58300; 99212; J7298 ==

== ENCOUNTER 2020-10-22 09:49 | Outpatient (REF) | payer OTHER, SELFPAY ==
[2020-10-22 10:40] LABS: MANUAL DIFF FLAG NO
[2020-10-22 10:42] LABS: Basophils Percent Auto 0.5 % (0-2); Eosinophils Absolute Auto 0.1 X10*3/uL (0.0-0.4); Eosinophils Percent Auto 1.5 % (0-4); Hematocrit 25.5 % (37-47); Hemoglobin 7.2 g/dl (12.0-16.0); Imm Gran Abs Auto 0.02 X10*3/uL (0.00-0.03); Imm Gran Pct Auto 0.3 % (0.0-0.4); Lymphocytes Absolute Auto 1.5 X10*3/uL (1.2-4.9); Lymphocytes Percent Auto 24.6 % (20-40); Mean Corpuscular HGB Conc 28.2 g/dl (31.0-35.0); Mean Corpuscular Hemoglobin 21.2 pg (27.0-33.0); Mean Corpuscular Volume 75.2 fL (80-98); Mean Platelet Volume 9.8 fL (9.4-12.3); Monocytes Absolute Auto 0.3 X10*3/uL (0.1-1.2); Monocytes Percent Auto 5.5 % (2-11); Neutrophils Absolute Auto 4.2 X10*3/uL (2.0-8.3); Neutrophils Percent Auto 67.6 % (45-73); Platelet Count 385 X10*3/uL (160-400); Red Blood Count 3.39 X10*6/uL (4.20-5.50); Red Cell Distribution Width 22.6 % (11.0-16.0); White Blood Count 6.2 X10*3/uL (4.8-10.8)
[2020-10-22 11:10] LABS: Iron 11 mcg/dL (30-160); Percent Iron Saturation 3 % (15-50); Total Iron Binding Capacity 416 mcg/dL (228-428); Unsaturated Iron Binding 405 ug/dL
[2020-10-22 11:36] LABS: HCG Quantitative < 2 mIU/mL
[2020-10-22 11:40] LABS: TSH reflex Free T4 0.98 uIU/mL (0.32-4.0)
[2020-10-22 14:38] LABS: CT PCR NOT DETECTED (Not Detect.); NG PCR NOT DETECTED (Not Detect.)
== END 2020-10-22 09:50 | disposition home or self-care (01) ==
LOC: HO.LAB 09:49
PROVIDERS: PCP Internal Medicine; Visit Provider Obstetrics & Gynecology
DX: Z00.00 Encounter for general adult medical examination without abnormal findings (principal); N93.9 Abnormal uterine and vaginal bleeding, unspecified; E61.1 Iron deficiency
CPT/HCPCS: 36415; 83540; 84443; 84702; 85025; 87491; 87591; 88305

== ENCOUNTER 2020-11-09 13:18 | Emergency (ER) | payer OTHER, SELFPAY ==
--- NOTE | ~2020-11-09 | US_ITS ---
EXAMINATION: US PELVIS CLINICAL INFORMATION: Bleeding and ovarian pain after IUD placement. COMPARISON: Pelvic ultrasound dated from 10/20/2020. TECHNIQUE: Ultrasound of the pelvis is performed using both transabdominal and transvaginal approach. The examination is limited due to patient's pain and poor acoustic windows. FINDINGS: Uterus: The uterus is anteverted and measures 9.0 x 4.3 cm (sagittal and AP dimensions). No focal uterine lesions. The endometrium measures up to 1.4 cm, previously 2.1 cm. This is expected in a premenopausal patient during certain phases of the menstrual cycle. No focal abnormalities. The intrauterine device projects over the cervix without reaching the endometrial cavity. Nabothian cyst overlie the cervix. The ovaries were not visualized in this study. No free fluid. US/US transvaginal IMPRESSION: This examination is limited due to patient's pain and suboptimal acoustic windows. Accounting for these limitations, the intrauterine device projects at the level of the cervix without reaching into the uterine cavity which is consider abnormal and requires repositioning.
[2020-11-09 13:52] VITALS: BP 123/78; PULSE 105; RESP 20; TEMP 36.6; O2SAT 100; BMI 31.3
[2020-11-09 15:51] LABS: MANUAL DIFF FLAG NO
[2020-11-09 15:52] LABS: Basophils Percent Auto 0.5 % (0-2); Eosinophils Absolute Auto 0.1 X10*3/uL (0.0-0.4); Eosinophils Percent Auto 0.8 % (0-4); Hematocrit 25.8 % (37-47); Hemoglobin 7.3 g/dl (12.0-16.0); Imm Gran Abs Auto 0.03 X10*3/uL (0.00-0.03); Imm Gran Pct Auto 0.5 % (0.0-0.4); Lymphocytes Absolute Auto 1.4 X10*3/uL (1.2-4.9); Lymphocytes Percent Auto 22.1 % (20-40); Mean Corpuscular HGB Conc 28.3 g/dl (31.0-35.0); Mean Corpuscular Hemoglobin 20.9 pg (27.0-33.0); Mean Corpuscular Volume 73.9 fL (80-98); Mean Platelet Volume 9.1 fL (9.4-12.3); Monocytes Absolute Auto 0.4 X10*3/uL (0.1-1.2); Monocytes Percent Auto 5.6 % (2-11); Neutrophils Absolute Auto 4.4 X10*3/uL (2.0-8.3); Neutrophils Percent Auto 70.5 % (45-73); Platelet Count 370 X10*3/uL (160-400); Red Blood Count 3.49 X10*6/uL (4.20-5.50); Red Cell Distribution Width 19.9 % (11.0-16.0); White Blood Count 6.2 X10*3/uL (4.8-10.8)
[2020-11-09 16:07] LABS: Alanine Aminotransferase 8 U/L (0-31); Albumin Level 4.3 g/dL (3.5-5.0); Alkaline Phosphatase 91 U/L (39-117); Anion Gap 11 (12-20); Aspartate Amino Transferase 12 U/L (5-31); Bilirubin Total 0.4 mg/dL (0.0-1.0); Blood Urea Nitrogen 10 mg/dL (9-16); Carbon Dioxide 25 mmol/L (22-29); Chloride 110 mmol/L (96-108); Creatinine Clr Calc Pharmacy 94.6; Estimated Glomerular Filt Rate > 60; Glucose Random 105 mg/dL (60-115); Sodium 142 mmol/L (135-145); Total Protein 7.2 g/dL (6.5-8.0)
--- NOTE | 2020-11-09 17:54 | ED_ITS ---
HPI - Female Genitourinary General Chief complaint: Vaginal Bleeding Stated complaint: vag bleed Time Seen by Provider: 11/09/20 15:47 Source: patient Mode of arrival: ambulatory Limitations: no limitations History of Present Illness HPI Narrative: Patient had an IUD placed by Dr. Hoff and she is complaining of pain and bleeding. Uterine biopsy showed hyperplasia with no cancer. MD elicited complaint: vaginal bleeding Onset (ago): week(s) Location of symptoms: pelvis Severity: mild Quality of pain: cramping Consistency: constant Relieving factors: none Associated symptoms: denies other symptoms Related Data Previous Rx's Medication Instructions Recorded ibuprofen 600 mg tablet 600 mg PO Q8H PRN #20 tab 04/12/20 ferrous sulfate 325 mg (65 mg 325 mg PO BID #180 tab 05/10/20 iron) tablet amoxicillin 500 mg tablet 500 mg PO BID #20 tab 10/20/20 medroxyprogesterone 10 mg tablet 10 mg PO DAILY #21 tab 10/20/20 (Provera) Allergies Allergy/AdvReac Type Severity Reaction Status Date / Time No Known Allergies Allergy Mild NOT Verified 10/22/20 09:19 APPLICABLE Review of Systems Constitutional: Constitutional: Reports no additional constitutional complaints Eyes: Eyes: Reports no additional eye complaints ENT: Denies dizziness Cardiovascular: Cardiovascular: Reports no additional cardiovascular complaints Respiratory: Respiratory: Reports as per HPI Gastrointestinal: Gastrointestinal: Reports no additional gastrointestinal complaints Genitourinary: Genitourinary: Reports no additional female genitourinary complaints Musculoskeletal: Musculoskeletal: Reports no additional musculoskeletal complaints Integumentary/Breasts: Skin/Breast: Denies rash Neurologic: Reports system reviewed and no additional complaints, except as documented, Denies dizziness and Denies Sensory deficit (Neuro) Psychiatric: Psychiatric: Denies anxiety [facility] Past Medical History Medical History Anemia Surgical History History of cholecystectomy Family History Family History Father No problems noted. Mother Diabetes Hypertension Sister Asthma Family history of thyroid problem Social History Social History Alcohol intake: current Alcohol intake frequency: holidays/special occasions only Patient Tobacco Use Status: Current everyday Tobacco user Cigarettes Per Day: 10 Advance Directives: No Advance Directives Information Provided: Yes Patient : No Physical Exam Vital Signs: Vital Signs: Last Vital Signs Temp 98.4 F 11/09/20 18:00 Pulse 89 11/09/20 18:00 Resp 17 11/09/20 18:00 BP 110/69 11/09/20 18:00 Pulse Ox 99 11/09/20 18:00 Body Mass Index 31.3 Const: General: healthy appearing Nutritional Appearance: average body habitus Orientation/consciousness: oriented to person and patient oriented x3 Limitations: no limitations HENMT: Head: Yes normal to inspection Ears: external ears normal General nose exam: Normal external nose present Mouth: Normal oral and palatal mucosa present and oropharynx normal Throat: Yes posterior oropharynx normal Eyes: General: appearance normal, both eyes and all related structures Neck: Other: supple Neck: Yes normal visual inspection Chest: Chest palpation & inspection: normal inspection of the chest Resp: Auscultation: clear to auscultation bilaterally Cardio: Jugular venous distension: no JVD Rate: regular rate Rhythm: regular rhythm Heart sounds: S1 normal heart sound present and S2 normal heart sound present GI: Other: mild lower pelvic pain, no guarding or rebound Inspection: Yes normal to inspection Palpation (GI): Soft to palpation Auscultation: normal bowel sounds : Other: clots coming from cervical os General: Yes no CVA tenderness Back/Spine/Pelvis: Back: no CVA tenderness Skin: General skin exam: no rashes or lesions noted Neuro: General: oriented to person and patient oriented x3 Cranial nerves: Yes CN's II-XII intact bilaterally Motor exam (neuro): 5/5 motor strength present throughout Sensory Exam: No Sensory deficit (Neuro) Extrem: General: Yes normal to inspection Psych: Appearance: grossly normal Course Reevaluation(s) Reevaluation #1: Patient had clot removed but the IUD was in the os and it came out with the clot. No further bleeding, no pain Time: 19:23 MDM - Female Genitourinary Lab Data Result diagrams: 11/09/20 15:45 11/09/20 15:45 Labs: Lab Results 11/09/20 11/09/20 Range/Units 15:45 15:45 WBC 6.2 (4.8-10.8) X10*3/uL RBC 3.49 L (4.20-5.50) X10*6/uL Hgb 7.3 L (12.0-16.0) g/dl Hct 25.8 L (37-47) % MCV 73.9 L (80-98) fL MCH 20.9 L (27.0-33.0) pg MCHC 28.3 L (31.0-35.0) g/dl RDW 19.9 H (11.0-16.0) % Plt Count 370 (160-400) X10*3/uL MPV 9.1 L (9.4-12.3) fL Immature Gran % (Auto) 0.5 H (0.0-0.4) % Neut % (Auto) 70.5 (45-73) % Lymph % (Auto) 22.1 (20-40) % Andrew % (Auto) 5.6 (2-11) % Eos % (Auto) 0.8 (0-4) % Baso % (Auto) 0.5 (0-2) % Lymph # (Auto) 1.4 (1.2-4.9) X10*3/uL Andrew # (Auto) 0.4 (0.1-1.2) X10*3/uL Eos # (Auto) 0.1 (0.0-0.4) X10*3/uL Baso # (Auto) 0.0 (0.0-0.2) X10*3/uL Abs Immat Gran (auto) 0.03 (0.00-0.03) X10*3/uL Absolute Neuts (auto) 4.4 (2.0-8.3) X10*3/uL Absolute Nucleated RBC 0.000 (0.0-0.012) X10*3/uL Nucleated RBC % (auto) 0.0 (0.0-0.2) /100WBC Sodium 142 (135-145) mmol/L Potassium 4.0 (3.3-5.1) mmol/L Chloride 110 H (96-108) mmol/L Carbon Dioxide 25 (22-29) mmol/L Anion Gap 11 L (12-20) BUN 10 (9-16) mg/dL Creatinine 0.85 (0.5-1.4) mg/dL Estim Creat Clear Calc 94.6 Estimated GFR > 60 Random Glucose 105 (60-115) mg/dL Calcium 9.0 (8.4-10.2) mg/dL Total Bilirubin 0.4 (0.0-1.0) mg/dL AST 12 (5-31) U/L ALT 8 (0-31) U/L Alkaline Phosphatase 91 (39-117) U/L Total Protein 7.2 (6.5-8.0) g/dL Albumin 4.3 (3.5-5.0) g/dL Discharge Plan Discharge Clinical Impression: Menometrorrhagia, Dysfunctional uterine bleeding Patient Disposition: Home, Self-Care Instructions: Dysfunctional Uterine Bleeding (ED), Menorrhagia (ED) Prescriptions: No Action ferrous sulfate 325 mg (65 mg iron) tablet 325 mg PO BID Qty: 180 RF: 8 ibuprofen 600 mg tablet 600 mg PO Q8H PRN (Reason: pain) Qty: 20 RF: 0 medroxyprogesterone [Provera] 10 mg tablet 10 mg PO DAILY Qty: 21 RF: 0 amoxicillin 500 mg tablet 500 mg PO BID Qty: 20 RF: 0 Mirena 20 mcg/24 hours (6 yrs) 52 mg intrauterine device 1 device intrauterine ONCE Qty: 1 RF: 0 Referrals: Juvenal Hoff MD [Physician] - 5 days
[2020-11-09 18:00] VITALS: BP 110/69; PULSE 89; RESP 17; TEMP 36.9; O2SAT 99
[2020-11-09 19:35] VITALS: BP 120/68; PULSE 72; TEMP 36.6; O2SAT 97
--- NOTE | 2020-11-09 19:56 | PC.NURSE ---
THIS PCT SET UP AND ASSIST DR VAN WITH PATIENT PELVIC EXAM
== END 2020-11-09 20:08 | disposition home or self-care (01) ==
PROVIDERS: Emergency Provider Emergency Medicine; PCP Internal Medicine
DX: N92.1 Excessive and frequent menstruation with irregular cycle (principal); N93.8 Other specified abnormal uterine and vaginal bleeding; F17.200 Nicotine dependence, unspecified, uncomplicated; Z71.6 Tobacco abuse counseling; Z79.899 Other long term (current) drug therapy
CPT/HCPCS: 36415; 76830; 80053; 85025; 99283; 99284

== ENCOUNTER 2020-11-11 09:47 | Outpatient (REF) | payer OTHER, SELFPAY ==
[2020-11-11 10:38] LABS: Hematocrit 24.2 % (37-47); Mean Corpuscular HGB Conc 28.1 g/dl (31.0-35.0); Mean Corpuscular Volume 74.7 fL (80-98); Mean Platelet Volume 10.1 fL (9.4-12.3); Platelet Count 399 X10*3/uL (160-400); Red Blood Count 3.24 X10*6/uL (4.20-5.50); Red Cell Distribution Width 19.9 % (11.0-16.0); White Blood Count 5.9 X10*3/uL (4.8-10.8)
[2020-11-11 10:48] LABS: Hemoglobin 6.8 g/dl (12.0-16.0)
== END 2020-11-11 09:48 | disposition home or self-care (01) ==
LOC: HO.LAB 09:47
PROVIDERS: PCP Internal Medicine; Visit Provider Obstetrics & Gynecology
DX: N93.9 Abnormal uterine and vaginal bleeding, unspecified (principal); D64.9 Anemia, unspecified
CPT/HCPCS: 36415; 85027; 99212

== ENCOUNTER → 2020-11-18 13:48 | Outpatient (BNVA) | payer OTHER, SELFPAY | PROVIDERS: PCP Internal Medicine; Visit Provider Obstetrics & Gynecology | DX: N93.9 Abnormal uterine and vaginal bleeding, unspecified (principal) | CPT/HCPCS: 99212 ==

== ENCOUNTER 2020-12-14 12:27 | Outpatient (REF) | payer OTHER, SELFPAY ==
--- NOTE | ~2020-12-14 | MM_ITS ---
EXAMINATION: MM SCREENING DIGITAL BREAST TOMOSYNTHESIS, BILATERAL CLINICAL INFORMATION: Screening. Asymptomatic. The lifetime risk of breast cancer based on the Tyrer-Cuzick Model is 7.6%. COMPARISON: Mammography: December 04, 2012 TECHNIQUE: Digital breast tomosynthesis is performed in both the craniocaudal and mediolateral oblique views along with computer-aided detection (CAD). Synthesized 2D images are generated from the tomosynthesis. FINDINGS: There are scattered areas of fibroglandular density (ACR BI-RADS breast composition Category b). There are no significant masses, abnormal calcifications, or other abnormalities. MM/MM tomosynthesis screening BI IMPRESSION: There are no significant changes from prior study. ASSESSMENT: BI-RADS 1: Negative RECOMMENDATION: Routine annual mammography screening. This patient's information was entered into a reminder system with a target due date for their next mammogram.
== END 2020-12-14 12:28 | disposition home or self-care (01) ==
LOC: HO.MAMMO 12:27
PROVIDERS: PCP Internal Medicine; Visit Provider Obstetrics & Gynecology
DX: Z12.31 Encounter for screening mammogram for malignant neoplasm of breast (principal)
CPT/HCPCS: 77063; 77067

== ENCOUNTER → 2021-02-21 15:05 | Outpatient (BNVA) | payer OTHER, SELFPAY | PROVIDERS: PCP Internal Medicine; Visit Provider Obstetrics & Gynecology ==

== ENCOUNTER 2021-02-21 15:38 | Outpatient (REF) | payer OTHER, SELFPAY ==
[2021-02-21 17:14] LABS: Hematocrit 26.7 % (37.0-47.0); Hemoglobin 7.3 g/dl (12.0-16.0); Mean Corpuscular HGB Conc 27.3 g/dl (31.0-35.0); Mean Corpuscular Hemoglobin 19.7 pg (27.0-33.0); Mean Platelet Volume 10.3 fL (9.4-12.3); Platelet Count 459 X10*3/uL (160-400); Red Blood Count 3.71 X10*6/uL (4.20-5.50); Red Cell Distribution Width 18.6 % (11.0-16.0); White Blood Count 6.2 X10*3/uL (4.8-10.8)
== END 2021-02-21 15:39 | disposition home or self-care (01) ==
LOC: HO.LAB 15:38
PROVIDERS: Visit Provider Obstetrics & Gynecology
DX: N93.9 Abnormal uterine and vaginal bleeding, unspecified (principal)
CPT/HCPCS: 36415; 85027

== ENCOUNTER → 2021-02-28 13:38 | Outpatient (BNVA) | payer OTHER, SELFPAY | PROVIDERS: Visit Provider Obstetrics & Gynecology ==

== ENCOUNTER 2021-03-15 08:04 | Outpatient (REF) | payer OTHER, SELFPAY | END 2021-03-15 08:05 | disposition home or self-care (01) | LOC: HO.MDS 08:04 | PROVIDERS: Visit Provider Internal Medicine Medical Oncology | DX: D50.9 Iron deficiency anemia, unspecified (principal) | CPT/HCPCS: 96365; 96366; J1200; J1750; Q0163 ==

== ENCOUNTER → 2021-03-22 14:36 | Outpatient (BNVA) | payer OTHER, SELFPAY | PROVIDERS: PCP Internal Medicine; Visit Provider Obstetrics & Gynecology | DX: N93.9 Abnormal uterine and vaginal bleeding, unspecified (principal) | CPT/HCPCS: 99212 ==

== ENCOUNTER 2021-03-25 09:34 | Day surgery (SDC) | payer OTHER, SELFPAY ==
--- NOTE | 2021-03-24 11:07 | HO.ANESPROP2 ---
Documented by User: Shannon Espinoza NP 03/24/21 11:07 HPI - Anesthesia Eval Consult details Narrative: 45yo F for Uterine Ablation w/Novasure PMFSH Active Problems Active Problems: All Active Problems (Updated 03/07/21 @ 16:06 by Eladio Gannon MD) Abdominal pain (Acute) Back pain (Acute) Pelvic pain (Acute) Well woman exam with routine gynecological exam (Acute) Potential exposure to STD (Acute) Alopecia (Acute) Hematuria (Acute) Anemia (Acute) Bacterial vaginosis (Acute) Physical exam (Acute) Menorrhagia with regular cycle (Acute) Abnormal uterine bleeding (AUB) (Acute) Encounter for IUD insertion (Acute) Past Medical History Medical History Anemia Family History Family History Father No problems noted. Mother Diabetes Hypertension Sister Asthma Family history of thyroid problem Surgical History Surgical History History of cholecystectomy Social History Social History Alcohol intake: current Alcohol intake frequency: holidays/special occasions only Patient Tobacco Use Status: Current everyday Tobacco user Use of substances other than those prescribed or required for medical reasons: No Are you DNR?: No Advance Directives: No Advance Directives Information Provided: Yes Nutrition Risks: No Nutritional Risk Patient : No Meds Allergies Allergy/AdvReac Type Severity Reaction Status Date / Time No Known Allergies Allergy Mild NOT Verified 03/18/21 14:12 APPLICABLE Exam Exam Date and Time: March 24, 2021 1107 Pertinent Lab Results Pertinent Lab Results: Laboratory Tests 03/07/21 03/07/21 16:04 16:04 WBC 5.7 Hgb 7.1 L Hct 25.3 L Plt Count 385 Sodium 139 Potassium 3.9 Chloride 109 H Carbon Dioxide 24 BUN 9 Creatinine 0.84 Assessment and Plan Assessment Anesthesia Assessment: Chart Reviewed Documented by User: Oralia Parra MD 03/25/21 10:35 PMFSH Past Medical History Medical History Anemia Family History Family History Father No problems noted. Mother Diabetes Hypertension Sister Asthma Family history of thyroid problem Family history of problems with anesthesia: No Surgical History Surgical History History of cholecystectomy History of Problems with Anesthesia: No Social History Social History Alcohol intake: current Alcohol intake frequency: holidays/special occasions only Patient Tobacco Use Status: Current everyday Tobacco user Use of substances other than those prescribed or required for medical reasons: No Are you DNR?: No Advance Directives: No Advance Directives Information Provided: Yes Nutrition Risks: No Nutritional Risk Patient : No Meds Allergies Allergy/AdvReac Type Severity Reaction Status Date / Time No Known Allergies Allergy Mild NOT Verified 03/18/21 14:12 APPLICABLE Exam Airway Mallampati Class: II TM Dist: >3cm Neck ROM: Full Assessment and Plan Assessment Anesthesia Assessment: Anesthesia Plan Discussed and Smoking Cess. Discussed Final Anesthetic Review Family History of Problems with Anesthesia: No History of Problems with Anesthesia: No NPO: Yes ASA Class: II Final Preanesthetic Review: No Changes in Pt Med Stat, Meds/Allgs Chart Reviewed, Consent Obtained/Reviewed and Anes Risks/Benef Reviewed Patient Risk: Intermediate Procedure Risk: Low Anesthetic Plan Anesthetic Plan: GA Disposition: Standard PACU
[2021-03-25 09:59] VITALS: BP 119/78; PULSE 99; RESP 16; TEMP 36.6; O2SAT 99; BMI 29.7
[2021-03-25 10:01] LABS: UPreg QC Valid YES; Urine Pregnancy NEGATIVE (NEGATIVE)
[2021-03-25] MEDS: Lactated Ringers 1,000 ML 100 ML IVCONT (10:10)
[2021-03-25 10:18] LABS: Hematocrit 32.8 % (37.0-47.0); Hemoglobin 9.7 g/dl (12.0-16.0); Mean Corpuscular HGB Conc 29.6 g/dl (31.0-35.0); Mean Corpuscular Hemoglobin 23.8 pg (27.0-33.0); Mean Corpuscular Volume 80.4 fL (80.0-98.0); Mean Platelet Volume 9.6 fL (9.4-12.3); Platelet Count 282 X10*3/uL (160-400); Red Blood Count 4.08 X10*6/uL (4.20-5.50); Red Cell Distribution Width 29.2 % (11.0-16.0); White Blood Count 5.7 X10*3/uL (4.8-10.8)
--- NOTE | 2021-03-25 11:10 | MHC.SHP ---
Pre-Procedural Eval Section A Date of Service: 03/25/21 The patient is an INPATIENT: No Changes since office visit: No Cold of Flu in the past 2 weeks, No New Medical Problems, No Changes in Medication and No Patient answered all questions The History & Physical has been completed within 30 days and I have reviewed it.: Yes Section B Chief Complaint: AUB Allergies: Allergies Allergy/AdvReac Type Severity Reaction Status Date / Time No Known Allergies Allergy Mild NOT Verified 03/18/21 14:12 APPLICABLE Plan Diagnosis/Plan: Unchanged I have reviewed the history and physical and performed a pertinent physical examination on my patient. No changes have occurred unless specified.
--- NOTE | 2021-03-25 11:35 | P.BOP_ITS ---
Brief Operative Note Date of Service: 03/25/21 Pre-op diagnosis: Menometrorrhagia Post-op diagnosis: same Procedure: NovaSure Endometrial Ablation Surgeon: Juvenal Hoff MD Anesthesia: MAC Was an Elementary Ell Teacher used for this Procedure?: No Estimated blood loss (mL): 0 Pathology: none sent Condition: stable Disposition: PACU
--- NOTE | 2021-03-25 11:35 | W.PM.OPN ---
Operative Note Operative Note Date of Service: 03/25/21 Narrative: Preop diagnosis: Menorrhagia Post Op Diagnosis: Same Op: Novasure Endometrial Ablation Anesthesia: MAC Commanding Officer Motorized Squad: None QBL: Minimal Pathology: None Complications: None Procedure: The patient was put in the dorsal lithotomy position. She was prepped and draped in the usual sterile manner. Bimanual exam prior to prepping revealed a mobile, anteverted uterus. A speculum was placed in the vagina and the anterior lip of the cervix was grasped with a single toothed tenaculum and brought forward. Taking care not to enter deep into the uterus, a sound was passed inside to measure the length of the uterus and cervix. This length was found to be 8 cm. Next, Hegar dilator was inserted into the cervical os to measure the cervical length which was 3 cm. This yielded an endometrial cavity length of 6.5 cm. A series of Hegar dilators were then inserted sequentially into the cervical os up to a size of 5 mm. The Novasure device was then opened and tested; the fan deployed easily. The instrument was set to the correct cavity length and introduced into the uterine cavity. The fan was slowly deployed with gentle movements to ensure a snug fit within the cavity. The cavity width read 4.5 cm. The measurements were imported and a cavity check was done. The trumpet was then slid down to the cervix and the device was activated. The total burn time was 91 seconds. The fan was retracted and device removed. The fan was examined and revealed charred tissue. The tenaculum was removed and the cervix examined for hemostasis which was achieved using pressure. Finally the speculum was removed. The patient tolerated the procedure well and was brought to the recovery room in a stable condition. At the end of the procedure all sponges and instruments were counted and correct. The blood loss was minimal and there were no complications.
[2021-03-25 11:42] VITALS: BP 108/65; PULSE 93; RESP 20; TEMP 36.2; O2SAT 99
[2021-03-25 11:47] VITALS: BP 95/46; PULSE 73; RESP 18; O2SAT 100
[2021-03-25 11:52] VITALS: BP 101/53; PULSE 70; RESP 20; O2SAT 100
[2021-03-25 11:57] VITALS: BP 118/74; PULSE 72; RESP 20; O2SAT 97
[2021-03-25 12:13] VITALS: BP 108/66; PULSE 69; RESP 20; TEMP 36.6; O2SAT 97
== END 2021-03-25 12:45 | disposition home or self-care (01) ==
PROVIDERS: Nurse Practitioner; Visit Provider Obstetrics & Gynecology
PROC: (CPT 58353; principal; 2021-03-25 11:00)
DX: N93.9 Abnormal uterine and vaginal bleeding, unspecified (principal); N92.0 Excessive and frequent menstruation with regular cycle; D64.9 Anemia, unspecified; N85.4 Malposition of uterus; Z79.899 Other long term (current) drug therapy; Z90.49 Acquired absence of other specified parts of digestive tract; F17.200 Nicotine dependence, unspecified, uncomplicated
CPT/HCPCS: 58353; 36415; 81025; 85027; J1100; J2250; J2405; J3010

== ENCOUNTER 2021-04-05 14:24 | Outpatient (REF) | payer OTHER, SELFPAY ==
[2021-04-05 18:02] LABS: CT PCR NOT DETECTED (Not Detect.); NG PCR NOT DETECTED (Not Detect.)
[2021-04-06 09:28] LABS: BV Int Neg Control Negative (Negative); BV Int Pos Control Positive (Positive)
== END 2021-04-05 14:25 | disposition home or self-care (01) ==
LOC: HO.LAB 14:24
PROVIDERS: PCP Internal Medicine; Visit Provider Obstetrics & Gynecology
DX: N89.8 Other specified noninflammatory disorders of vagina (principal); N99.85 Post endometrial ablation syndrome; N71.9 Inflammatory disease of uterus, unspecified; Z11.3 Encounter for screening for infections with a predominantly sexual mode of transmission; Z11.8 Encounter for screening for other infectious and parasitic diseases; D64.9 Anemia, unspecified; M79.606 Pain in leg, unspecified
CPT/HCPCS: 87480; 87491; 87510; 87591; 87660; 99212

== ENCOUNTER → 2021-04-11 14:05 | Outpatient (BNVA) | payer OTHER, SELFPAY | PROVIDERS: PCP Internal Medicine; Visit Provider Obstetrics & Gynecology ==

== ENCOUNTER 2021-06-28 15:18 | Emergency (ER) | payer OTHER, SELFPAY ==
--- NOTE | ~2021-06-28 | CT_ITS ---
EXAMINATION: CT ABDOMEN AND PELVIS WITHOUT CONTRAST CLINICAL INFORMATION: Flank pain, hematuria COMPARISON: 08/26/2013 TECHNIQUE: Multidetector volumetric imaging was performed from the superior aspect of the liver through the pubic symphysis. Sagittal and coronal reformatted images were obtained on the technologist's workstation. This CT examination was performed using dose optimization techniques as appropriate, variously including the following: *Automated exposure control *Adjustment of mA and/or kV according to patient size (this includes techniques or standardized protocols for targeted exams where dose is matched to indication/reason for exam; i.e. extremities or head) *Use of iterative reconstruction technique DLP: 742 mGy-cm FINDINGS: LUNG BASES: The visualized lung bases are unremarkable. LIVER, GALLBLADDER, AND BILIARY TREE: The liver is normal in size, shape, and attenuation. There is a 1.4 cm mildly hypodense lesion in the right hepatic lobe on image 23/96 which was also present on 08/26/2013; this has previously been characterized as a hemangioma. No biliary ductal dilatation is present. Patient is status post cholecystectomy. PANCREAS: Unremarkable. SPLEEN: Unremarkable. ADRENAL GLANDS: Unremarkable. KIDNEYS AND URETERS: There is a 5 mm calculus in the distal left ureter near the ureterovesicular junction, without significant hydronephrosis. A couple left lower pole renal calculi are present measuring up to 4 mm. No right-sided hydronephrosis. BLADDER: Partially distended without significant wall thickening. GASTROINTESTINAL TRACT: No evidence of bowel obstruction or significant wall thickening. The appendix is unremarkable. There is suggestion of trace pelvic free fluid, which may be physiologic. No free air is seen. ABDOMINAL WALL: No significant hernia is appreciated. LYMPH NODES: Normal. VASCULAR: Unremarkable. PELVIC VISCERA: Unremarkable. OSSEOUS STRUCTURES: Mild degenerative changes in the lumbar spine at L2-L3. CT/CT abdomen pelvis wo con IMPRESSION: 1. Distal left ureteral calculus measuring 5 mm, without significant hydronephrosis. 2. Small left renal calculi.
[2021-06-28 16:15] VITALS: BP 119/94; PULSE 81; RESP 18; TEMP 36.9; O2SAT 98; BMI 31.3
[2021-06-28 17:04] LABS: MANUAL DIFF FLAG NO
[2021-06-28 17:05] LABS: Appearance Urine CLEAR; Basophils Percent Auto 0.4 % (0-2); Color Urine YELLOW; Eosinophils Absolute Auto 0.1 X10*3/uL (0.0-0.4); Eosinophils Percent Auto 0.7 % (0-4); Glucose Urine UA NEG (NEG); Hematocrit 41.8 % (37.0-47.0); Hemoglobin 13.6 g/dl (12.0-16.0); Imm Gran Abs Auto 0.03 X10*3/uL (0.00-0.03); Imm Gran Pct Auto 0.3 % (0.0-0.4); Leukocyte Esterase Urine NEG (NEG); Lymphocytes Absolute Auto 1.9 X10*3/uL (1.2-4.9); Lymphocytes Percent Auto 20.5 % (20-40); Mean Corpuscular HGB Conc 32.5 g/dl (31.0-35.0); Mean Corpuscular Hemoglobin 29.7 pg (27.0-33.0); Mean Corpuscular Volume 91.3 fL (80.0-98.0); Mean Platelet Volume 10.2 fL (9.4-12.3); Monocytes Absolute Auto 0.5 X10*3/uL (0.1-1.2); Monocytes Percent Auto 5.5 % (2-11); Neutrophils Absolute Auto 6.6 x10*3/uL (2.0-8.3); Neutrophils Percent Auto 72.6 % (45-73); Nitrite Urine NEG (NEG); Platelet Count 259 X10*3/uL (160-400); Red Blood Count 4.58 X10*6/uL (4.20-5.50); Red Cell Distribution Width 14.5 % (11.0-16.0); Specific Gravity - Urine 1.025 (1.005-1.025); UACC Culture Trigger NO; Urine Blood 3+ (NEG); Urine Ketones NEG (NEG); Urine Protein NEG (NEG-TRACE); White Blood Count 9.1 X10*3/uL (4.8-10.8)
[2021-06-28 17:21] LABS: Anion Gap 12 (12-20); Blood Urea Nitrogen 7 mg/dL (9-16); Calcium 9.5 mg/dL (8.4-10.2); Carbon Dioxide 26 mmol/L (22-29); Chloride 108 mmol/L (96-108); Creatinine Clr Calc Pharmacy 94.7; Estimated Glomerular Filt Rate > 60; Glucose Random 95 mg/dL (60-115); Potassium 4.1 mmol/L (3.3-5.1); Sodium 142 mmol/L (135-145)
[2021-06-28 17:22] LABS: Bacteria Urine 1+ /LPF; Mucus Urine 1+ /LPF; RBC Urine 30-49 /HPF (0); Squamous Epithelial Cell Urine TRACE /LPF
[2021-06-28 18:45] LABS: UPreg QC Valid YES; Urine Pregnancy NEGATIVE (NEGATIVE)
[2021-06-28 21:26] VITALS: BP 135/86; PULSE 80; RESP 17; O2SAT 100
[2021-06-28 22:06] VITALS: BP 106/70; PULSE 70; TEMP 36.8; O2SAT 99
--- NOTE | 2021-06-28 22:42 | ED_ITS ---
HPI - Female Genitourinary General Chief complaint: Urogenital-Female Stated complaint: pain while breathing Time Seen by Provider: 06/28/21 20:18 Source: patient Mode of arrival: ambulatory Limitations: no limitations History of Present Illness HPI Narrative: 38-year-old female here with reports of bilateral mid back pain that is worsened with movement and breathing for the last 3 days. Also complaining of urinary urgency and frequency. No dysuria, hematuria, vaginal discharge, fevers, chills, cough, shortness of breath, chest pain. Related Data Previous Rx's Medication Instructions Recorded ibuprofen 600 mg tablet 600 mg PO Q8H PRN #20 tab 04/12/20 metronidazole 500 mg tablet 500 mg PO BID 7 Days #14 tab 02/21/21 levofloxacin 500 mg tablet 500 mg PO DAILY 7 Days #7 tab 04/05/21 metronidazole 500 mg tablet 500 mg PO BID 7 Days #14 tab 04/05/21 ibuprofen 600 mg tablet 600 mg PO Q8H PRN #20 tab 06/28/21 tamsulosin 0.4 mg capsule (Flomax) 0.4 mg PO DAILY #14 cap 06/28/21 Allergies Allergy/AdvReac Type Severity Reaction Status Date / Time No Known Allergies Allergy Mild NOT Verified 04/04/21 14:34 APPLICABLE Review of Systems Review of Systems: Yes all other systems are reviewed and are negative Constitutional: Constitutional: Reports no additional constitutional complaints, Denies body ache(s), Denies chills, Denies fever(s), Denies headache(s) and Denies weakness Eyes: Eyes: Reports no additional eye complaints and Denies change in vision ENT: Reports system reviewed and no additional complaints, except as documented, Denies dizziness, Denies headache(s), Denies nasal congestion, Denies nasal discharge and Denies neck pain Cardiovascular: Cardiovascular: Reports no additional cardiovascular complaints, Denies chest pain, Denies leg edema and Denies dyspnea Respiratory: Respiratory: Reports no additional respiratory complaints, Denies cough and Denies dyspnea Gastrointestinal: Gastrointestinal: Reports no additional gastrointestinal complaints, Denies abdominal pain, Denies diarrhea, Denies nausea and Denies vomiting Genitourinary: Genitourinary: Reports no additional female genitourinary complaints, Denies hematuria, Denies dysuria, Denies pelvic pain, Denies urinary incontinence, Reports urinary urgency and Denies vaginal discharge Comments: Frequent urination Musculoskeletal: Musculoskeletal: Reports no additional musculoskeletal complaints, Reports back pain, Denies arthralgias, Denies joint swelling, Denies neck pain, Denies numbness and Denies tingling Integumentary/Breasts: Skin/Breast: Reports system reviewed and no additional complaints, except as docu and Denies rash Neurologic: Reports system reviewed and no additional complaints, except as documented, Denies Abnormal speech present, Denies dizziness, Denies headache(s), Denies numbness, Denies tingling and Denies weakness PMFSH Past Medical History Attestation statement: The following information was validated with the patient. Source: old records reviewed and nursing notes reviewed Medical History Anemia Surgical History History of cholecystectomy History of endometrial ablation Family History Family History Father No problems noted. Mother Diabetes Hypertension Sister Asthma Family history of thyroid problem Social History Social History Housing: Apartment Alcohol intake: current Alcohol intake frequency: holidays/special occasions only Patient Tobacco Use Status: Current everyday Tobacco user Tobacco use type: Cigarette Cigarettes Per Day: 10 e-Cigarette/Vaping Use: Never Used Second Hand Smoke Exposure: No Advance Directives: No Advance Directives Information Provided: No Patient : No service: No Current occupational status: employed Cognitive needs: No Hearing needs: No Vision needs: No Physical Exam Vital Signs: Vital Signs: Last Vital Signs Temp 98.3 F 06/28/21 22:06 Pulse 70 06/28/21 22:06 Resp 17 06/28/21 21:26 BP 106/70 06/28/21 22:06 Pulse Ox 99 06/28/21 22:06 BMI result Body Mass Index 31.3 Const: General: cooperative, healthy appearing, comfortable and no acute distress Orientation/consciousness: patient oriented x3 Limitations: no l imitations HEENT: Head: Yes normal to inspection Ears: hearing grossly normal bilaterally General nose exam: Normal external nose present Face and sinus: Yes normal facial exam Mouth: Normal oral and palatal mucosa present Throat: Yes posterior oropharynx normal Eyes: General: appearance normal, both eyes and all related structures Pupils: Equal, round and reactive pupils present Neck: Neck: Yes normal visual inspection Chest: Chest palpation & inspection: normal inspection of the chest Resp: Effort & Inspection: normal respiratory effort Auscultation: clear to auscultation bilaterally Cardio: Rate: regular rate Rhythm: regular rhythm Peripheral pulses: Peripheral pulses 2+ throughout GI: Inspection: Yes normal to inspection Palpation (GI): Soft to palpation and nontender Auscultation: normal bowel sounds : General: Yes CVA tenderness (Right and left) Back/Spine/Pelvis: Back: CVA tenderness (Right and left) Thoracic/Lumbar Spine: thoracic and lumbar spine normal to inspection Skin: General skin exam: no rashes or lesions noted Neuro: General: patient oriented x3, no focal motor deficits and normal sensation to monofilament Cranial nerves: Yes Equal, round and reactive pupils present Cognition (Neuro): normal cognition Speech: No Abnormal speech present Gait exam (Neuro): Normal gait present Motor exam (neuro): 5/5 motor strength present throughout Extrem: General: Yes normal to inspection, Yes no pedal edema and Yes no calf tenderness Course Course Course Narrative: 46-year-old female here with bilateral flank pain and urinary urgency and frequency for Three days. UA shows microscopic hematuria. Labs are unremarkable. Will check CT abdomen and pelvis to rule out renal colic. Will provide analgesia Reevaluation(s) Reevaluation #1: CT of the abdomen and pelvis shows distal left ureteral calculi measuring 5 mm without significant hydronephrosis. Patient is feeling improved after receiving Toradol. Will discharge her home with ibuprofen, Flomax and Urology follow-up. Reviewed worrisome signs and symptoms of when to return to the emergency department. Comfortable discharge home. Time: 23:55 MDM - Female Genitourinary MDM Narrative Medical decision making narrative: renal colic, pyelonephritis, UTI Medical Records Attestation: I reviewed the patient's medical records. Lab Data Attestation: I reviewed the patient's lab results. Result diagrams: 06/28/21 16:58 06/28/21 16:58 Labs: Lab Results 06/28/21 06/28/21 06/28/21 Range/Units 16:57 16:58 16:58 WBC 9.1 (4.8-10.8) X10*3/uL RBC 4.58 (4.20-5.50) X10*6/uL Hgb 13.6 D (12.0-16.0) g/dl Hct 41.8 D (37.0-47.0) % MCV 91.3 (80.0-98.0) fL MCH 29.7 (27.0-33.0) pg MCHC 32.5 (31.0-35.0) g/dl RDW 14.5 (11.0-16.0) % Plt Count 259 (160-400) X10*3/uL MPV 10.2 (9.4-12.3) fL Immature Gran % (Auto) 0.3 (0.0-0.4) % Neut % (Auto) 72.6 (45-73) % Lymph % (Auto) 20.5 (20-40) % [place] % (Auto) 5.5 (2-11) % Eos % (Auto) 0.7 (0-4) % Baso % (Auto) 0.4 (0-2) % Lymph # (Auto) 1.9 (1.2-4.9) X10*3/uL [place] # (Auto) 0.5 (0.1-1.2) X10*3/uL Eos # (Auto) 0.1 (0.0-0.4) X10*3/uL Baso # (Auto) 0.0 (0.0-0.2) X10*3/uL Abs Immat Gran (auto) 0.03 (0.00-0.03) X10*3/uL Absolute Neuts (auto) 6.6 (2.0-8.3) x10*3/uL Absolute Nucleated RBC 0.000 (0.0-0.012) X10*3/uL Nucleated RBC % (auto) 0.0 (0.0-0.2) /100WBC Sodium 142 (135-145) mmol/L Potassium 4.1 (3.3-5.1) mmol/L Chloride 108 (96-108) mmol/L Carbon Dioxide 26 (22-29) mmol/L Anion Gap 12 (12-20) BUN 7 L (9-16) mg/dL Creatinine 0.84 (0.5-1.4) mg/dL Estim Creat Clear Calc 94.7 Estimated GFR > 60 Random Glucose 95 (60-115) mg/dL Calcium 9.5 D (8.4-10.2) mg/dL Urine Color Urine Appearance Urine pH (5.0-8.0) Ur Specific [place] (1.005-1.025) Urine Protein (NEG-TRACE) MG/DL Urine Glucose (UA) (NEG) MG/DL Urine Ketones (NEG) MG/DL Urine Blood (NEG) Urine Nitrite (NEG) Ur Leukocyte Esterase (NEG) Urine RBC (0) /HPF Urine WBC (0-4) /HPF Ur Squamous Epith Cells /LPF Urine Bacteria /LPF Urine Mucus /LPF Urine Test NEGATIVE (NEGATIVE) 06/28/21 Range/Units 16:58 WBC (4.8-10.8) X10*3/uL RBC (4.20-5.50) X10*6/uL Hgb (12.0-16.0) g/dl Hct (37.0-47.0) % MCV (80.0-98.0) fL MCH (27.0-33.0) pg MCHC (31.0-35.0) g/dl RDW (11.0-16.0) % Plt Count (160-400) X10*3/uL MPV (9.4-12.3) fL Immature Gran % (Auto) (0.0-0.4) % Neut % (Auto) (45-73) % Lymph % (Auto) (20-40) % [place] % (Auto) (2-11) % Eos % (Auto) (0-4) % Baso % (Auto) (0-2) % Lymph # (Auto) (1.2-4.9) X10*3/uL [place] # (Auto) (0.1-1.2) X10*3/uL Eos # (Auto) (0.0-0.4) X10*3/uL Baso # (Auto) (0.0-0.2) X10*3/uL Abs Immat Gran (auto) (0.00-0.03) X10*3/uL Absolute Neuts (auto) (2.0-8.3) x10*3/uL Absolute Nucleated RBC (0.0-0.012) X10*3/uL Nucleated RBC % (auto) (0.0-0.2) /100WBC Sodium (135-145) mmol/L Potassium (3.3-5.1) mmol/L Chloride (96-108) mmol/L Carbon Dioxide (22-29) mmol/L Anion Gap (12-20) BUN (9-16) mg/dL Creatinine (0.5-1.4) mg/dL Estim Creat Clear Calc Estimated GFR Random Glucose (60-115) mg/dL Calcium (8.4-10.2) mg/dL Urine Color YELLOW Urine Appearance CLEAR Urine pH 6.0 (5.0-8.0) Ur Specific [place] 1.025 (1.005-1.025) Urine Protein NEG (NEG-TRACE) MG/DL Urine Glucose (UA) NEG (NEG) MG/DL Urine Ketones NEG (NEG) MG/DL Urine Blood 3+ H (NEG) Urine Nitrite NEG (NEG) Ur Leukocyte Esterase NEG (NEG) Urine RBC 30-49 H (0) /HPF Urine WBC 1-4 (0-4) /HPF Ur Squamous Epith Cells TRACE /LPF Urine Bacteria 1+ /LPF Urine Mucus 1+ /LPF Urine Test (NEGATIVE) Imaging Data CT scan - abdomen: Attestation: I personally reviewed and interpreted this imaging study as follows: Radiologist's impression: FINDINGS: LUNG BASES: The visualized lung bases are unremarkable.? LIVER, GALLBLADDER, AND BILIARY TREE: The liver is normal in size, shape, and attenuation. There is a 1.4 cm mildly hypodense lesion in the right hepatic lobe on image 23/96 which was also present on 08/26/2013; this has previously been characterized as a hemangioma. No biliary ductal dilatation is present. Patient is status post cholecystectomy.? PANCREAS: Unremarkable.? SPLEEN: Unremarkable.? ADRENAL GLANDS: Unremarkable.? KIDNEYS AND URETERS: There is a 5 mm calculus in the distal left ureter near the ureterovesicular junction, without significant hydronephrosis. A couple left lower pole renal calculi are present measuring up to 4 mm. No right-sided hydronephrosis. BLADDER: Partially distended without significant wall thickening.? GASTROINTESTINAL TRACT: No evidence of bowel obstruction or significant wall thickening. The appendix is unremarkable. There is suggestion of trace pelvic free fluid, which may be physiologic. No free air is seen. ABDOMINAL WALL: No significant hernia is appreciated. LYMPH NODES: Normal. VASCULAR: Unremarkable. PELVIC VISCERA: Unremarkable.? OSSEOUS STRUCTURES: Mild degenerative changes in the lumbar spine at L2-L3.? CT/CT abdomen pelvis wo con IMPRESSION: 1.? Distal left ureteral calculus measuring 5 mm, without significant hydronephrosis. 2.? Small left renal calculi.? ? Discharge Plan Discharge Clinical Impression: Renal colic on left side Patient Disposition: Home, Self-Care Instructions: Renal Colic (ED) Additional Instructions: Increase fluids, rest Follow-up with urology Return for fever, blood in the urine, severe abdominal back pain Prescriptions: New tamsulosin [Flomax] 0.4 mg capsule 0.4 mg PO DAILY Qty: 14 0RF ibuprofen 600 mg tablet 600 mg PO Q8H PRN (Reason: pain) Qty: 20 0RF No Action ibuprofen 600 mg tablet 600 mg PO Q8H PRN (Reason: pain) Qty: 20 0RF metronidazole 500 mg tablet 500 mg PO BID 7 Days Qty: 14 0RF metronidazole 500 mg tablet 500 mg PO BID 7 Days Qty: 14 0RF levofloxacin 500 mg tablet 500 mg PO DAILY 7 Days Qty: 7 0RF Referrals: Armando Barrios MD [Physician] - 5 days Stand Alone Forms: Work/School Release
[2021-06-28] MEDS: Ketorolac Tromethamine 60 MG/2 ML VIAL IM (23:11)
== END 2021-06-29 00:08 | disposition home or self-care (01) ==
PROVIDERS: Emergency Provider Internal Medicine; PCP Internal Medicine
DX: N23 Unspecified renal colic (principal); R39.15 Urgency of urination; M54.50 Low back pain, unspecified; F17.210 Nicotine dependence, cigarettes, uncomplicated; Z71.6 Tobacco abuse counseling; Z79.899 Other long term (current) drug therapy
CPT/HCPCS: 36415; 74176; 80048; 81001; 81025; 85025; 96372; 99283; 99284; J1885

== ENCOUNTER 2021-07-11 13:52 | Outpatient (REF) | payer OTHER, SELFPAY ==
[2021-07-11 14:08] LABS: MANUAL DIFF FLAG NO
[2021-07-11 14:31] LABS: Basophils Percent Auto 0.4 % (0-2); Eosinophils Absolute Auto 0.1 X10*3/uL (0.0-0.4); Eosinophils Percent Auto 1.3 % (0-4); Hematocrit 41.3 % (37.0-47.0); Hemoglobin 13.4 g/dl (12.0-16.0); Imm Gran Abs Auto 0.03 X10*3/uL (0.00-0.03); Imm Gran Pct Auto 0.4 % (0.0-0.4); Lymphocytes Absolute Auto 1.6 X10*3/uL (1.2-4.9); Lymphocytes Percent Auto 22.1 % (20-40); Mean Corpuscular HGB Conc 32.4 g/dl (31.0-35.0); Mean Corpuscular Hemoglobin 30.2 pg (27.0-33.0); Mean Platelet Volume 10.5 fL (9.4-12.3); Monocytes Absolute Auto 0.4 X10*3/uL (0.1-1.2); Neutrophils Percent Auto 70.8 % (45-73); Platelet Count 275 X10*3/uL (160-400); Red Blood Count 4.44 X10*6/uL (4.20-5.50); Red Cell Distribution Width 13.1 % (11.0-16.0)
[2021-07-11 15:16] LABS: Thyroid Stimulating Hormone 0.76 uIU/mL (0.32-4.0)
[2021-07-13 22:02] LABS: TS Negative Control Passed; TS Panel A 1; TS Panel B 0; TS Positive Control Passed; TSpotTB Negative (Negative)
== END 2021-07-11 13:53 | disposition home or self-care (01) ==
LOC: HO.LAB 13:52
PROVIDERS: Absent Provider Internal Medicine Medical Oncology; PCP Internal Medicine; Visit Provider Internal Medicine
DX: Z11.1 Encounter for screening for respiratory tuberculosis (principal); Z13.0 Encounter for screening for diseases of the blood and blood-forming organs and certain disorders involving the immune mechanism
CPT/HCPCS: 36415; 84443; 85025; 86481

== ENCOUNTER 2021-07-19 14:27 | Outpatient (REF) | payer OTHER, SELFPAY ==
[2021-07-19 14:57] LABS: Hematocrit 40.2 % (37.0-47.0); Hemoglobin 13.3 g/dl (12.0-16.0); Mean Corpuscular HGB Conc 33.1 g/dl (31.0-35.0); Mean Corpuscular Hemoglobin 30.6 pg (27.0-33.0); Mean Corpuscular Volume 92.6 fL (80.0-98.0); Mean Platelet Volume 10.7 fL (9.4-12.3); Platelet Count 274 X10*3/uL (160-400); Red Blood Count 4.34 X10*6/uL (4.20-5.50); Red Cell Distribution Width 12.7 % (11.0-16.0); White Blood Count 7.9 X10*3/uL (4.8-10.8)
[2021-07-19 15:59] LABS: Thyroid Stimulating Hormone 0.82 uIU/mL (0.32-4.0)
[2021-07-20 07:36] LABS: HBS Num1 0.34 mIU/mL (0-7.99); ~Hepatitis B Surface Antibody NONREACTIVE (Nonreactive)
== END 2021-07-19 14:28 | disposition home or self-care (01) ==
LOC: HO.LAB 14:27
PROVIDERS: Obstetrics & Gynecology; PCP Internal Medicine; Visit Provider Internal Medicine
DX: Z00.00 Encounter for general adult medical examination without abnormal findings (principal); N93.9 Abnormal uterine and vaginal bleeding, unspecified; Z28.39 Other underimmunization status
CPT/HCPCS: 36415; 84443; 85027; 86706; 86787

== ENCOUNTER 2021-07-23 13:13 | Emergency (ER) | payer OTHER, SELFPAY ==
[2021-07-23 13:16] VITALS: BP 121/91; PULSE 95; RESP 18; TEMP 36.6; O2SAT 100; BMI 32.5
[2021-07-23 15:02] VITALS: BP 105/76; PULSE 76; RESP 16; TEMP 36.7; O2SAT 99
--- NOTE | 2021-07-23 15:17 | ED_ITS ---
HPI - General Adult General Chief complaint: General Medical Stated complaint: r leg numb redness abd blotted Time Seen by Provider: 07/23/21 15:17 Source: patient Mode of arrival: ambulatory History of Present Illness HPI narrative: 46-year-old female who presents with right lateral thigh with superficial numbness in combination with pain and tingling that extends from the approximate greater trochanter distal to mid thigh. She denies any falls or trauma to the area, denies any fevers or chills and denies any difficulty with walking. Related Data Previous Rx's Medication Instructions Recorded levofloxacin 500 mg tablet 500 mg PO DAILY 7 days #7 tabs 04/05/21 metronidazole 500 mg tablet 500 mg PO BID 7 days #14 tabs 04/05/21 ibuprofen 600 mg tablet 600 mg PO Q8H PRN pain #20 tabs 06/28/21 tamsulosin 0.4 mg capsule (Flomax) 0.4 mg PO DAILY #14 caps 06/28/21 Allergies Allergy/AdvReac Type Severity Reaction Status Date / Time No Known Allergies Allergy Mild NOT Verified 07/11/21 13:12 APPLICABLE Review of Systems Review of Systems: pertinent positives and negatives as stated in HPI 10 point review of systems is otherwise negative. [facility] Past Medical History Source: nursing notes reviewed Medical History Anemia Surgical History History of cholecystectomy History of endometrial ablation Family History Family History Father No problems noted. Mother Diabetes Hypertension Sister Asthma Family history of thyroid problem Social History Social History Housing: Apartment Alcohol intake: current Alcohol intake frequency: holidays/special occasions only Patient Tobacco Use Status: Current everyday Tobacco user Tobacco use type: Cigarette Cigarette Packs Per Day: 0.5 Cigarettes Per Day: 10 e-Cigarette/Vaping Use: Never Used Second Hand Smoke Exposure: Yes Advance Directives: No Advance Directives Information Provided: Yes service: No Current occupational status: employed Cognitive needs: No Hearing needs: No Vision needs: No Physical Exam ED Vital Signs: Vital Signs - 24 hr 07/23/21 13:16 07/23/21 15:02 Temperature 98 F 98.1 F Pulse Rate 95 76 Respiratory Rate 18 16 Blood Pressure 121/91 H 105/76 Pulse Oximetry 100 99 Oxygen Delivery Method Room Air Room Air BMI result Body Mass Index 32.5 VITAL SIGNS: Reviewed. GENERAL: Well developed, well nourished, in no acute distress. HEAD: Normocephalic/atraumatic EYES: PERRLA, EOMI EARS: Ext canals without abnormality LUNGS: Normal breath sounds. No adventitious sounds or accessory muscle use. SpO2<100> CARDIOVASCULAR: Regular rate and rhythm without noted murmurs ABDOMEN: Soft, non-tender, non-distended with bowel sounds. MUSCULOSKELETAL: No tenderness, deformities, or effusions noted on gross inspection. EXTREMITIES: No cyanosis, clubbing or edema; RIGHT LOWer extremity: There is no overlying erythema or induration at the site and no obvious vesicular rash, however there is significant pain on palpation from the greater trochanter bursa down to mid thigh NEUROLOGIC: Alert and oriented x 4. Strength and sensation to light touch were grossly intact x 4. Course Course Course Narrative: 46-year-old female with history and clinical presentation suggestive of possible bursitis, IT band, or the possibility of shingles. Patient is feeling better after medications and was discharged home in stable condition with instructions follow-up with primary care provider. There is no evidence to suggest cellulitis and instead I suspect possible bursitis/ IT band inflammation. Discharge Plan Discharge Clinical Impression: Leg pain, Bursitis Patient Disposition: Home, Self-Care Instructions: Hip Bursitis (ED) Additional Instructions: 1. Ibuprofen 400 mg, orally with milk or food, every 6 hours as needed for pain control. 2. Lidocaine patch, apply to area of maximal tenderness as directed on the outside packaging 3. Follow-up with your primary care provider on Sunday for re- evaluation. Return to the ER for worsening symptoms. Prescriptions: No Action tamsulosin [Flomax] 0.4 mg capsule 0.4 mg PO DAILY Qty: 14 0RF ibuprofen 600 mg tablet 600 mg PO Q8H PRN (Reason: pain) Qty: 20 0RF metronidazole 500 mg tablet 500 mg PO BID 7 Days Qty: 14 0RF levofloxacin 500 mg tablet 500 mg PO DAILY 7 Days Qty: 7 0RF
[2021-07-23] MEDS: Acetaminophen 325 MG TABLET 975 MG PO (15:58)
[2021-07-23] MEDS: Lidocaine 4 % Patch ADH..PATCH 1 PATCH TRANSDERMA (15:59)
== END 2021-07-23 16:56 | disposition home or self-care (01) ==
PROVIDERS: Emergency Provider Student in an Organized Health Care Education/Training Program; PCP Internal Medicine
DX: M71.58 Other bursitis, not elsewhere classified, other site (principal); R20.0 Anesthesia of skin; M79.604 Pain in right leg; F17.210 Nicotine dependence, cigarettes, uncomplicated; Z71.6 Tobacco abuse counseling; Z79.899 Other long term (current) drug therapy
CPT/HCPCS: 96372; 99283; 99284

== ENCOUNTER 2021-10-11 14:00 | Outpatient (REF) | payer OTHER, SELFPAY ==
--- NOTE | ~2021-10-11 | XR_ITS ---
EXAMINATION: XR HIP, RIGHT CLINICAL INFORMATION: Pain. COMPARISON: None TECHNIQUE: AP and frog-leg lateral views of the right hip. FINDINGS: Bones and soft tissues are normal. No fracture. Alignment is anatomic. Hip joint space is maintained. XR/XR hip RT min 2V IMPRESSION: Normal right hip.
== END 2021-10-11 14:01 | disposition home or self-care (01) ==
LOC: HO.XRAY 14:00
PROVIDERS: PCP Internal Medicine; Visit Provider Internal Medicine
DX: M25.551 Pain in right hip (principal)
CPT/HCPCS: 73502

== ENCOUNTER 2021-12-02 11:57 | Outpatient (REF) | payer OTHER, SELFPAY ==
[2021-12-02 12:22] LABS: MANUAL DIFF FLAG NO
[2021-12-02 12:50] LABS: Basophils Percent Auto 0.5 % (0-2); Eosinophils Absolute Auto 0.1 X10*3/uL (0.0-0.4); Eosinophils Percent Auto 1.5 % (0-4); Hematocrit 42.7 % (37.0-47.0); Imm Gran Abs Auto 0.03 X10*3/uL (0.00-0.03); Imm Gran Pct Auto 0.4 % (0.0-0.4); Lymphocytes Absolute Auto 2.4 X10*3/uL (1.2-4.9); Lymphocytes Percent Auto 30.1 % (20-40); Mean Corpuscular HGB Conc 32.8 g/dl (31.0-35.0); Mean Corpuscular Volume 94.7 fL (80.0-98.0); Mean Platelet Volume 10.3 fL (9.4-12.3); Monocytes Absolute Auto 0.5 X10*3/uL (0.1-1.2); Monocytes Percent Auto 6.3 % (2-11); Neutrophils Absolute Auto 4.9 x10*3/uL (2.0-8.3); Neutrophils Percent Auto 61.2 % (45-73); Platelet Count 280 X10*3/uL (160-400); Red Blood Count 4.51 X10*6/uL (4.20-5.50); Red Cell Distribution Width 12.9 % (11.0-16.0); White Blood Count 8.1 X10*3/uL (4.8-10.8)
[2021-12-02 13:36] LABS: Alanine Aminotransferase 43 U/L (0-31); Albumin Level 4.4 g/dL (3.5-5.0); Alkaline Phosphatase 107 U/L (39-117); Anion Gap 17 (12-20); Aspartate Amino Transferase 24 U/L (5-31); Bilirubin Total 0.6 mg/dL (0.0-1.0); Blood Urea Nitrogen 10 mg/dL (9-16); Calcium 9.4 mg/dL (8.4-10.2); Carbon Dioxide 25 mmol/L (22-29); Chloride 106 mmol/L (96-108); Cholesterol 212 mg/dL; Estimated Glomerular Filt Rate > 60; Glucose Fasting 87 mg/dL (60-99); HDL Cholesterol 41 mg/dL; LDL Cholesterol Calculated 153 mg/dl; Potassium 4.3 mmol/L (3.3-5.1); Sodium 144 mmol/L (135-145); Total Protein 7.4 g/dL (6.5-8.0); Triglycerides 91 mg/dL
[2021-12-02 13:59] LABS: Thyroid Stimulating Hormone 1.02 uIU/mL (0.32-4.0)
== END 2021-12-02 11:58 | disposition home or self-care (01) ==
LOC: HO.LAB 11:57
PROVIDERS: PCP Internal Medicine; Visit Provider Internal Medicine
DX: Z13.0 Encounter for screening for diseases of the blood and blood-forming organs and certain disorders involving the immune mechanism (principal); E78.5 Hyperlipidemia, unspecified; E03.9 Hypothyroidism, unspecified; I10 Essential (primary) hypertension
CPT/HCPCS: 36415; 80053; 80061; 84443; 85025

== ENCOUNTER 2022-02-28 11:29 | Emergency (ER) | payer OTHER, SELFPAY ==
--- NOTE | ~2022-02-28 | XR_ITS ---
EXAMINATION: XR LUMBOSACRAL SPINE CLINICAL INFORMATION: Midline lower back pain. COMPARISON: CT abdomen/pelvis dated 06/28/2021. TECHNIQUE: Three views of the lumbosacral spine. FINDINGS: The normal lumbar lordosis is maintained. No acute fracture or subluxation. No loss of vertebral body height. Multilevel loss of intervertebral disc height with anterior endplate osseous, most prominent at L2-L3. Findings are slightly progressed when compared to the MRI dated 06/28/2021. No concerning lytic or blastic osseous lesion. No abnormal soft tissue calcification. Right upper quadrant surgical clips. XR/XR lumbar spine 2-3V IMPRESSION: Multilevel degenerative disc disease, most prominent at L2-L3. Findings are slightly progressed when compared to the MRI from 06/28/2021.
--- NOTE | ~2022-02-28 | CT_ITS ---
EXAMINATION: CT ABDOMEN AND PELVIS WITHOUT CONTRAST CLINICAL INFORMATION: Left back/flank pain. Bleeding with stools. COMPARISON: 06/28/2021 TECHNIQUE: Multidetector volumetric imaging was performed from the superior aspect of the liver through the pubic symphysis. Sagittal and coronal reformatted images were obtained on the technologist's workstation. This CT examination was performed using dose optimization techniques as appropriate, variously including the following: *Automated exposure control *Adjustment of mA and/or kV according to patient size (this includes techniques or standardized protocols for targeted exams where dose is matched to indication/reason for exam; i.e. extremities or head) *Use of iterative reconstruction technique DLP: 735 mGy-cm FINDINGS: LUNG BASES: The visualized lung bases are unremarkable. LIVER, GALLBLADDER, AND BILIARY TREE: The liver is normal in size, shape, and attenuation. No focal hepatic lesion or biliary ductal dilatation is present. Cholecystectomy. PANCREAS: Unremarkable. SPLEEN: Unremarkable. ADRENAL GLANDS: Unremarkable. KIDNEYS AND URETERS: The kidneys are normal in size, shape, and attenuation. No hydronephrosis or hydroureter. 0.4 cm left lower pole renal calculus is 11 cm from the posterior axillary line. BLADDER: Unremarkable. GASTROINTESTINAL TRACT: The stomach is unremarkable. Normal caliber small bowel. No obstruction. No colonic wall thickening or inflammatory change. There is focal inflammation of the fat adjacent to the distal aspect of the descending colon on series 3 image 62. This could represent epiploic appendagitis . Normal appendix. ABDOMINAL WALL: No significant hernia is appreciated. LYMPH NODES: Normal. VASCULAR: Normal caliber aorta. Circumaortic left renal vein. PELVIC VISCERA: The uterus and adnexa are unremarkable. OSSEOUS STRUCTURES: No acute or suspicious osseous abnormality. Vacuum disc phenomenon at L2-L3. Small endplate osteophytes. CT/CT abdomen pelvis wo IV con IMPRESSION: 1. Focal inflammation of the fat adjacent to the distal aspect of the descending colon. This could represent epiploic appendagitis. 2. Nonobstructing left lower pole renal calculus. Fleischner guidelines were followed.
[2022-02-28 11:35] VITALS: BP 136/94; PULSE 84; RESP 18; TEMP 36.8; O2SAT 100; BMI 31.3
--- NOTE | 2022-02-28 11:36 | ED_ITS ---
HPI - General Adult General Chief complaint: Back Pain/Injury <RUSSEL Harris - Last Filed: 02/28/22 11:37> Stated complaint: Lower back pain spine pain <RUSSEL Harris - Last Filed: 02/28/22 11:37> Time Seen by Provider: 02/28/22 12:01 <RUSSEL Harris - Last Filed: 02/28/22 11:37> Source: patient <RUSSEL Harrington - Last Filed: 02/28/22 15:58> Mode of arrival: ambulatory <RUSSEL Harrington - Last Filed: 02/28/22 15:58> Limitations: no limitations <RUSSEL Harrington Last Filed: 02/28/22 15:58> History of Present Illness HPI narrative: 46-year-old female with a past medical history of chronic back pain presenting to the ER with complaints of intermittent worsening back pain over the past month that is now radiating to her left flank area. She reports that this feels a bit different from her normal back pain. She also reports that she has noted some bright red blood mixed in her stools over the past month as well. She reports that at that time she is straining when she is having the bowel movements. She has not had rectal bleeding without stools they are usually mixed in the stools she reports. She denies any fevers, chills, dizziness, headaches, neck pain /stiffness, trouble swallowing or breathing, chest pain or shortness of breath, dyspnea exertion, orthopnea palpitations paresthesias, abdominal pain, dysuria, hematuria, abnormal vaginal discharge, black stools, recent travel or sick contacts, lower extremity edema or calf tenderness, rashes, urinary bowel incontinence or retention, saddle anesthesia, IV drug use or any other symptoms complaints or concerns at this time. <RUSSEL Harrington - Last Filed: 02/28/22 15:58> MD complaint: Back pain <RUSSEL Harrington Last Filed: 02/28/22 15:58> Onset (ago): month(s) (1) <RUSSEL Harrington Last Filed: 02/28/22 15:58> Location: back <RUSSEL Harrington Last Filed: 02/28/22 15:58> Radiation: flank <RUSSEL Harrington Last Filed: 02/28/22 15:58> Severity: moderate <RUSSEL Harrington Last Filed: 02/28/22 15:58> Quality: aching <RUSSEL Harrington Last Filed: 02/28/22 15:58> Pain Consistency: constant <RUSSEL Harrington Last Filed: 02/28/22 15:58> Relieving factors: none <RUSSEL Harrington Last Filed: 02/28/22 15:58> Exacerbating factors: none <RUSSEL Harrington Last Filed: 02/28/22 15:58> Associated symptoms: other ( see above) <RUSSEL Harrington Last Filed: 02/28/22 15:58> Related Data Home medications: Previous Rx's Medication Instructions Recorded cyclobenzaprine 10 mg tablet 10 mg PO Q8H #14 tabs 02/28/22 ibuprofen 800 mg tablet 800 mg PO Q8H PRN pain #14 tabs 02/28/22 <RUSSEL Harris Last Filed: 02/28/22 11:37> Allergies/adverse reactions: Allergies Allergy/AdvReac Type Severity Reaction Status Date / Time No Known Allergies Allergy Mild NOT Verified 10/11/21 13:28 APPLICABLE <RUSSEL Harris Last Filed: 02/28/22 11:37> Review of Systems Review of Systems: Constitutional : No trauma, No Weight loss, No Fever, No Chills, ENT/Mouth : No Hearing loss, No Ear Pain, No Nasal Congestion, No Sinus Pain, No Hoarseness, No sore throat, No Rhinorrhea, No Swallowing Difficulty Cardiovascular : No Chest Pain, No SOB Respiratory : No Cough, No Dyspnea Gastrointestinal : No Nausea, No Vomiting, No Diarrhea, No abdominal Pain, + bright red blood with stools, no rectal bleeding without stools, No H ematochezia, No Melena Genitourinary : No Dysuria, No Urinary Frequency, No Hematuria, No Urinary or Bowel Incontinence/retention Musculoskeletal : + Back pain, No neck pain, No joint stiffness, No joint swelling Skin : No Skin Lesions, No rash or signs of infection Neuro : No Weakness, No radiation, No Numbness, No Paresthesias, No headache, no loss of bowel or bladder incontinence, no saddle anesthesia, Focal weakness, No radiation Denies history of IV drug usage. <RUSSEL Harrington - Last Filed: 02/28/22 15:58> Yes all other systems are reviewed and are negative <RUSSEL Harrington - Last Filed: 02/28/22 15:58> PMFSH Past Medical History Attestation statement: The following information was validated with the patient. <RUSSEL Harrington - Last Filed: 02/28/22 15:58> Source: old records reviewed and nursing notes reviewed <RUSSEL Harrington - Last Filed: 02/28/22 15:58> Medical History: Medical History Anemia <RUSSEL Harris - Last Filed: 02/28/22 11:37> Surgical History: Surgical History History of cholecystectomy History of endometrial ablation <RUSSEL Harris - Last Filed: 02/28/22 11:37> Family History Family History: Family History Father No problems noted. Mother Diabetes Hypertension Sister Asthma Family history of thyroid problem <RUSSEL Harris - Last Filed: 02/28/22 11:37> Social History Social History: Social History Housing: Apartment Alcohol intake: current Alcohol intake frequency: holidays/special occasions only Patient Tobacco Use Status: Current everyday Tobacco user Tobacco use type: Cigarette Cigarette Packs Per Day: 0.5 Cigarettes Per Day: 10 e-Cigarette/Vaping Use: Never Used Second Hand Smoke Exposure: Yes Advance Directives: No Advance Directives Information Provided: No service: No Current occupational status: employed Cognitive needs: No Hearing needs: No Vision needs: No <RUSSEL Harris - Last Filed: 02/28/22 11:37> Physical Exam ED Vital Signs: Vital Signs - 24 hr 02/28/22 11:35 Temperature 98.2 F Pulse Rate 84 Respiratory Rate 18 Blood Pressure 136/94 H Pulse Oximetry 100 Oxygen Delivery Method Room Air BMI result Body Mass Index 31.3 <RUSSEL Harris - Last Filed: 02/28/22 11:37> Vital Signs - 24 hr 02/28/22 11:35 Temperature 98.2 F Pulse Rate 84 Respiratory Rate 18 Blood Pressure 136/94 H Pulse Oximetry 100 Oxygen Delivery Method Room Air BMI result Body Mass Index 31.3 vital signs reviewed blood pressure 136/94 mildly elevated otherwise all other vitals are within normal limits and reviewed. <RUSSEL Harrington - Last Filed: 02/28/22 15:58> Appearance: Alert. Oriented X3. No acute distress. Head: Normal external exam. Normocephalic. Atraumatic. No [place] signs noted. No raccoon eyes noted Eyes: PERRLA. EOMI. Conjunctiva and sclera normal. Eyelids normal. ENT: EAC normal. TM's Normal. Pharynx normal. Uvula midline. Moist mucous membranes. No trismus noted. No drooling noted. No muffled voice noted. Neck: Normal inspection. Neck supple. FROM. No adenopathy. Thyroid Normal. No meningeal signs. No neck mass noted. CVS: Normal heart rate and rhythm. Heart sound normal. No murmurs noted. Pulses normal throughout. Respiratory: No respiratory distress. Painless inspiration. Breath sounds normal. No wheezes/rales/rhonchi noted. Chest nontender. No accessory muscle usage noted or decreased air movement noted. Abdomen: Soft and nontender. Bowel sounds normal in all 4 quadrants. No distention noted. No organomegaly noted. No visible injury noted. Back: + left CVA tenderness. No R CVAT. Full range of motion noted. No obvious deformities, or edema. Mild para-spinal muscular tenderness from lumbar region to coccyx. Full ROM in back and lower extremities. 5/5 strength hip extension/flexion, abduction, adduction. Mild Lumbar pain with hip flexion against resistance. Straight leg raise test negative on right; Straight leg raise test negative on left; Reflexes normal ankle and knee bilaterally; EHL mot or strength normal bilaterally. No rashes/lesion/induration/fluctuance or signs infection noted. Skin: Skin warm and dry. Normal skin color. Normal skin turgor. No rashes/lesions/lacerations noted. Extremities: No lower extremity edema. Extremities exhibit normal range of motion. Extremities nontender. Neuro: Oriented X 3. No motor deficit. No sensory deficit. Reflexes normal. Patient has a normal steady gait. <RUSSEL Harrington - Last Filed: 02/28/22 15:58> Course Course Course Narrative: RME - 46 yo female presenting to the ER with worsening nontrauamtic midline low back pain for the last 1 month along with intermittent rectal bleeding for the last 8 months. No urinary symptoms. Midline tednerness along with soft tissue tendernes bilaterally in the lumbar are. Labs and lumbar spine XR ordered. <RUSSEL Harris - Last Filed: 02/28/22 11:37> Reevaluation(s) Reevaluation #1: Pt c likely muscular pain, but could be herniated disc. Neuro exam shows no deficits. Not c/w AAA/epidural abscess/dissection.No high risk Hx (Incont, fever, immunosupp, recent surgery/LP, coag, signif trauma, wt loss, puls mass, hx/o Ca, TB, or IVDU) to warrant MRI today. Not c/w Pyelo/UTI/kidney stone/spinal fx. Not cauda equina syndrome. She did have an x-ray while she was in the waiting room which revealed multi level degenerative disc disease most prominent at L2-L3 findings are slightly progressed when compared to MRI from 06/28/2021 otherwise no other acute processes. Although due to patient reporting flank pain and possible rectal bleeding will also obtain a CT scan of abdomen and pelvis without IV contrast. reviewing her labs her AST/ ALT mildly elevated although all other labs are within normal limits. No evidence of anemia. Patient most likely hemorrhoids. She is refusing rectal exam reports she is not having any rectal bleeding today. If CT scan negative patient will be discharged with symptomatic treatment for muscular skeletal pain instructions to follow up with PCP. Patient understands agrees with this plan. 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 nonobstructing left lower pole renal calculus. I discussed this with Dr. Graham when he reported that at this time there is nothing to do that this can be treated with NSAIDs. I did attempt to call the patient to let her know the results although she did not answer the phone. I sent some NSAIDs and muscle relaxers to her pharmacy. <RUSSEL aHrrington - Last Filed: 02/28/22 15:58> Time: 15:57 <RUSSEL Harrington - Last Filed: 02/28/22 15:58> Medications Administered Discontinued Medications Generic Name Dose Route Start Last Admin Trade Name Freq PRN Reason Stop Dose Admin Ibuprofen 800 mg 02/28/22 13:08 02/28/22 13:18 Ibuprofen 800 Mg Tablet PO 02/28/22 13:09 800 mg ONCE ONE Administration Ketorolac Tromethamine 30 mg 02/28/22 12:38 02/28/22 12:53 Ketorolac Tromethamine 30 Mg/Ml Vial IM 02/28/22 12:39 Not Given ONCE ONE <RUSSEL Harris - Last Filed: 02/28/22 11:37> Medications Administered Discontinued Medications Generic Name Dose Route Start Last Admin Trade Name Freq PRN Reason Stop Dose Admin Ibuprofen 800 mg 02/28/22 13:08 02/28/22 13:18 Ibuprofen 800 Mg Tablet PO 02/28/22 13:09 800 mg ONCE ONE Administration Ketorolac Tromethamine 30 mg 02/28/22 12:38 02/28/22 12:53 Ketorolac Tromethamine 30 Mg/Ml Vial IM 02/28/22 12:39 Not Given ONCE ONE <RUSSEL Harrington - Last Filed: 02/28/22 15:58> Medical Decision Making Lab Data MDM Lab Attestation statement: I reviewed the patient's lab results. <RUSSEL Harrington - Last Filed: 02/28/22 15:58> Result Diagrams: 02/28/22 11:49 02/28/22 11:49 <RUSSEL Harris - Last Filed: 02/28/22 11:37> Labs: Lab Results 02/28/22 02/28/22 Range/Units 11:49 11:49 WBC 8.2 (4.8-10.8) X10*3/uL RBC 4.70 (4.20-5.50) X10*6/uL Hgb 14.1 (12.0-16.0) g/dl Hct 43.5 (37.0-47.0) % MCV 92.6 (80.0-98.0) fL MCH 30.0 (27.0-33.0) pg MCHC 32.4 (31.0-35.0) g/dl RDW 12.6 (11.0-16.0) % Plt Count 295 (160-400) X10*3/uL MPV 10.2 (9.4-12.3) fL Immature Gran % (Auto) 0.5 H (0.0-0.4) % Neut % (Auto) 66.4 (45-73) % Lymph % (Auto) 26.0 (20-40) % [place] % (Auto) 5.5 (2-11) % Eos % (Auto) 0.9 (0-4) % Baso % (Auto) 0.7 (0-2) % Lymph # (Auto) 2.1 (1.2-4.9) X10*3/uL [place] # (Auto) 0.5 (0.1-1.2) X10*3/uL Eos # (Auto) 0.1 (0.0-0.4) X10*3/uL Baso # (Auto) 0.1 (0.0-0.2) X10*3/uL Abs Immat Gran (auto) 0.04 H (0.00-0.03) X10*3/uL Absolute Neuts (auto) 5.5 (2.0-8.3) x10*3/uL Absolute Nucleated RBC 0.000 (0.0-0.012) X10*3/uL Nucleated RBC % (auto) 0.0 (0.0-0.2) /100WBC Sodium 144 (135-145) mmol/L Potassium 4.4 (3.3-5.1) mmol/L Chloride 108 (96-108) mmol/L Carbon Dioxide 26 (22-29) mmol/L Anion Gap 14 (12-20) BUN 9 (9-16) mg/dL Creatinine 1.01 (0.5-1.4) mg/dL Estim Creat Clear Calc 78.7 Estimated GFR 59 Random Glucose 92 (60-115) mg/dL Calcium 9.4 (8.4-10.2) mg/dL Total Bilirubin 0.6 (0.0-1.0) mg/dL Direct Bilirubin 0.2 (0.0-0.5) mg/dL AST 60 H (5-31) U/L ALT 110 H (0-31) U/L Alkaline Phosphatase 109 (39-117) U/L Total Protein 7.1 (6.5-8.0) g/dL Albumin 4.3 (3.5-5.0) g/dL Beta HCG, Quant < 2 mIU/mL <RUSSEL Harris - Last Filed: 02/28/22 11:37> Lab Results 02/28/22 02/28/22 Range/Units 11:49 11:49 WBC 8.2 (4.8-10.8) X10*3/uL RBC 4.70 (4.20-5.50) X10*6/uL Hgb 14.1 (12.0-16.0) g/dl Hct 43.5 (37.0-47.0) % MCV 92.6 (80.0-98.0) fL MCH 30.0 (27.0-33.0) pg MCHC 32.4 (31.0-35.0) g/dl RDW 12.6 (11.0-16.0) % Plt Count 295 (160-400) X10*3/uL MPV 10.2 (9.4-12.3) fL Immature Gran % (Auto) 0.5 H (0.0-0.4) % Neut % (Auto) 66.4 (45-73) % Lymph % (Auto) 26.0 (20-40) % [place] % (Auto) 5.5 (2-11) % Eos % (Auto) 0.9 (0-4) % Baso % (Auto) 0.7 (0-2) % Lymph # (Auto) 2.1 (1.2-4.9) X10*3/uL [place] # (Auto) 0.5 (0.1-1.2) X10*3/uL Eos # (Auto) 0.1 (0.0-0.4) X10*3/uL Baso # (Auto) 0.1 (0.0-0.2) X10*3/uL Abs Immat Gran (auto) 0.04 H (0.00-0.03) X10*3/uL Absolute Neuts (auto) 5.5 (2.0-8.3) x10*3/uL Absolute Nucleated RBC 0.000 (0.0-0.012) X10*3/uL Nucleated RBC % (auto) 0.0 (0.0-0.2) /100WBC Sodium 144 (135-145) mmol/L Potassium 4.4 (3.3-5.1) mmol/L Chloride 108 (96-108) mmol/L Carbon Dioxide 26 (22-29) mmol/L Anion Gap 14 (12-20) BUN 9 (9-16) mg/dL Creatinine 1.01 (0.5-1.4) mg/dL Estim Creat Clear Calc 78.7 Estimated GFR 59 Random Glucose 92 (60-115) mg/dL Calcium 9.4 (8.4-10.2) mg/dL Total Bilirubin 0.6 (0.0-1.0) mg/dL Direct Bilirubin 0.2 (0.0-0.5) mg/dL AST 60 H (5-31) U/L ALT 110 H (0-31) U/L Alkaline Phosphatase 109 (39-117) U/L Total Protein 7.1 (6.5-8.0) g/dL Albumin 4.3 (3.5-5.0) g/dL Beta HCG, Quant < 2 mIU/mL <RUSSEL Harrington - Last Filed: 02/28/22 15:58> Independent Interpretation I performed an independent interpretation of an: Plain X-Ray and CT Scan <RUSSEL Harrington - Last Filed: 02/28/22 15:58> Interpretation: FINDINGS: The normal lumbar lordosis is maintained. No acute fracture or subluxation. No loss of vertebral body height. Multilevel loss of intervertebral disc height with anterior endplate osseous, most prominent at L2-L3. Findings are slightly progressed when compared to the MRI dated 06/28/2021. No concerning lytic or blastic osseous lesion. No abnormal soft tissue calcification. Right upper quadrant surgical clips. XR/XR lumbar spine 2-3V IMPRESSION: Multilevel degenerative disc disease, most prominent at L2-L3. Findings are slightly progressed when compared to the MRI from 06/28/2021. FINDINGS: LUNG BASES: The visualized lung bases are unremarkable.? LIVER, GALLBLADDER, AND BILIARY TREE: The liver is normal in size, shape, and attenuation. No focal hepatic lesion or biliary ductal dilatation is present. Cholecystectomy.? PANCREAS: Unremarkable.? SPLEEN: Unremarkable.? ADRENAL GLANDS: Unremarkable.? KIDNEYS AND URETERS: The kidneys are normal in size, shape, and attenuation. No hydronephrosis or hydroureter. 0.4 cm left lower pole renal calculus is 11 cm from the posterior axillary line. BLADDER: Unremarkable.? GASTROINTESTINAL TRACT: The stomach is unremarkable. Normal caliber small bowel. No obstruction. No colonic wall thickening or inflammatory change. There is focal inflammation of the fat adjacent to the distal aspect of the descending colon on series 3 image 62. This could represent epiploic appendagitis . Normal appendix. ABDOMINAL WALL: No significant hernia is appreciated.? LYMPH NODES: Normal. VASCULAR: Normal caliber aorta. Circumaortic left renal vein. PELVIC VISCERA: The uterus and adnexa are unremarkable.? OSSEOUS STRUCTURES: No acute or suspicious osseous abnormality. Vacuum disc phenomenon at L2-L3. Small endplate osteophytes.? CT/CT abdomen pelvis wo IV con IMPRESSION: 1.? Focal inflammation of the fat adjacent to the distal aspect of the descending colon. This could represent epiploic appendagitis. 2.? Nonobstructing left lower pole renal calculus. ? Fleischner guidelines were followed. <RUSSEL Harrington - Last Filed: 02/28/22 15:58> Discharge Plan Discharge Clinical Impression: Degenerative disc disease, lumbar, Epiploic appendagitis <RUSSEL Harris - Last Filed: 02/28/22 11:37> Patient Disposition: Home, Self-Care <RUSSEL Harris - Last Filed: 02/28/22 11:37> Instructions: Degenerative Disc Disease (ED) <RUSSEL Harris - Last Filed: 02/28/22 11:37> Prescriptions: New ibuprofen 800 mg tablet 800 mg PO Q8H PRN (Reason: pain) Qty: 14 0RF cyclobenzaprine 10 mg tablet 10 mg PO Q8H Qty: 14 0RF <RUSSEL Harris - Last Filed: 02/28/22 11:37> Referrals: Jaya Yousif MD [Primary Care Provider] - 2 days <RUSSEL Harris - Last Filed: 02/28/22 11:37>
[2022-02-28 11:53] LABS: MANUAL DIFF FLAG NO
[2022-02-28 12:01] LABS: Basophils Absolute Auto 0.1 X10*3/uL (0.0-0.2); Basophils Percent Auto 0.7 % (0-2); Eosinophils Absolute Auto 0.1 X10*3/uL (0.0-0.4); Eosinophils Percent Auto 0.9 % (0-4); Hematocrit 43.5 % (37.0-47.0); Hemoglobin 14.1 g/dl (12.0-16.0); Imm Gran Abs Auto 0.04 X10*3/uL (0.00-0.03); Imm Gran Pct Auto 0.5 % (0.0-0.4); Lymphocytes Absolute Auto 2.1 X10*3/uL (1.2-4.9); Mean Corpuscular HGB Conc 32.4 g/dl (31.0-35.0); Mean Corpuscular Volume 92.6 fL (80.0-98.0); Mean Platelet Volume 10.2 fL (9.4-12.3); Monocytes Absolute Auto 0.5 X10*3/uL (0.1-1.2); Monocytes Percent Auto 5.5 % (2-11); Neutrophils Absolute Auto 5.5 x10*3/uL (2.0-8.3); Neutrophils Percent Auto 66.4 % (45-73); Platelet Count 295 X10*3/uL (160-400); Red Cell Distribution Width 12.6 % (11.0-16.0); White Blood Count 8.2 X10*3/uL (4.8-10.8)
[2022-02-28 12:16] LABS: Alanine Aminotransferase 110 U/L (0-31); Albumin Level 4.3 g/dL (3.5-5.0); Alkaline Phosphatase 109 U/L (39-117); Anion Gap 14 (12-20); Aspartate Amino Transferase 60 U/L (5-31); Bilirubin Total 0.6 mg/dL (0.0-1.0); Blood Urea Nitrogen 9 mg/dL (9-16); Calcium 9.4 mg/dL (8.4-10.2); Carbon Dioxide 26 mmol/L (22-29); Chloride 108 mmol/L (96-108); Creatinine Clr Calc Pharmacy 78.7; Estimated Glomerular Filt Rate 59; Glucose Random 92 mg/dL (60-115); Potassium 4.4 mmol/L (3.3-5.1); Sodium 144 mmol/L (135-145); Total Protein 7.1 g/dL (6.5-8.0)
[2022-02-28 12:20] LABS: Bilirubin Direct 0.2 mg/dL (0.0-0.5)
--- NOTE | 2022-02-28 12:53 | PC.NURSE ---
attempted to give toradol 30mg IM per order, pt refused, stating i dont take medicine, ill take an ibuprofen or something provider aware
[2022-02-28] MEDS: Ibuprofen 800 MG TABLET PO (13:18)
[2022-02-28 13:30] LABS: HCG Quantitative < 2 mIU/mL
== END 2022-02-28 16:03 | disposition home or self-care (01) ==
PROVIDERS: Physician Assistant; Physician Assistant Medical; Emergency Provider Emergency Medicine; PCP Internal Medicine
DX: M51.36 Other intervertebral disc degeneration, lumbar region (principal); M54.50 Low back pain, unspecified; K63.89 Other specified diseases of intestine; Z79.899 Other long term (current) drug therapy
CPT/HCPCS: 36415; 72100; 74176; 80048; 80076; 84702; 85025; 99283; 99284

== ENCOUNTER 2022-03-09 13:28 | Outpatient (REF) | payer OTHER, SELFPAY | END 2022-03-09 13:29 | disposition home or self-care (01) | LOC: HO.LAB 13:28 | PROVIDERS: PCP Internal Medicine; Visit Provider Internal Medicine | DX: N39.0 Urinary tract infection, site not specified (principal) | CPT/HCPCS: 87086 ==

== ENCOUNTER 2022-07-10 11:18 | Outpatient (REF) | payer OTHER, SELFPAY ==
[2022-07-10 12:33] LABS: Hematocrit 43.8 % (37.0-47.0); Hemoglobin 14.2 g/dl (12.0-16.0); Mean Corpuscular HGB Conc 32.4 g/dl (31.0-35.0); Mean Corpuscular Hemoglobin 30.3 pg (27.0-33.0); Mean Corpuscular Volume 93.6 fL (80.0-98.0); Mean Platelet Volume 10.5 fL (9.4-12.3); Platelet Count 306 X10*3/uL (160-400); Red Blood Count 4.68 X10*6/uL (4.20-5.50); Red Cell Distribution Width 12.9 % (11.0-16.0); White Blood Count 7.8 X10*3/uL (4.8-10.8)
== END 2022-07-10 11:19 | disposition home or self-care (01) ==
LOC: HO.LAB 11:18
PROVIDERS: PCP Internal Medicine; Visit Provider Internal Medicine
DX: K62.5 Hemorrhage of anus and rectum (principal)
CPT/HCPCS: 36415; 85027; 99202

== ENCOUNTER 2022-08-21 10:25 | Outpatient (AMB) | payer OTHER, SELFPAY ==
--- NOTE | 2022-08-21 10:25 | MHC.PC.OV ---
Vital Signs 08/21/22 10:28 Height 5 ft 7 in Weight 206 lb 4 oz BMI 32.3 BP 120/72 Blood Pressure Location Lt brachial Position Sitting Pulse 82 Pulse Source Pulse Oximeter Pulse Oximetry (%) 97 Oxygen Delivery Method Room Air Intake Visit Reasons: swelling and fast heart beat Intake Note: Patient is here today for bilateral ankle pain with swelling of right ankle and palpitation. Research Program Assistant Required: No Outside Collector: Not Required per policy Accompanied by: Self / Same As Patient Allergies No Known Allergies Allergy (Mild, Verified 08/21/22 10:27) NOT APPLICABLE Medication List - Last Reconciled 08/21/22 by Jaya Yousif MD ibuprofen 800 mg PO Q8H PRN Tobacco use date assessed: 08/21/22 Dental Screening Dental Screen Date: 08/21/22 Did you have a dental visit in the last 12 months?: Yes Did you have a dental problem in the last 6 months where you did not have access to dental care?: No Was dental information given to patient?: Patient has dentist HPI swelling and fast heart beat HPI Details palpitations for a week [facility] Medical History Anemia Surgical History History of cholecystectomy History of endometrial ablation Family History Father No problems noted. Mother Diabetes Hypertension Sister Asthma Family history of thyroid problem Social History (Updated 08/21/22 @ 10:32 by DAVID Kaye) Housing: Apartment Alcohol intake: current Alcohol intake frequency: holidays/special occasions only Patient Tobacco Use Status: Current everyday Tobacco user Tobacco use type: Cigarette Cigarette Packs Per Day: 0.5 Cigarettes Per Day: 8 e-Cigarette/Vaping Use: Never Used Second Hand Smoke Exposure: Yes service: No Current occupational status: employed Cognitive needs: No Hearing needs: No Vision needs: No Female Reproductive History Menstrual Age of Menarche: 11 Questionnaire Thrive Questionnaire Date Thrive assessed: 03/09/22 FRANCOIS-7 AMB Questionnaire FRANCOIS-7 Date FRANCOIS - 7 assessed: 08/21/22 Feeling nervous, anxious, or on edge: 0 = Not at all Not being able to stop or control worryin = Not at all Worrying too much about different things: 0 = Not at all Trouble relaxin = Not at all Being so restless that it is hard to sit still: 0 = Not at all Becoming easily annoyed or irritable: 0 = Not at all Feeling afraid as if something awful might happen: 0 = Not at all Total FRANCOIS-7 score (0-4 normal; 5-9 mild; 10-14 moderate; 15-21 severe): 0 Source: Developed by Drs. Fan Campos, Marva Vaca, Ever Edwards and colleagues, with an educational noemi from [employer]. Review of Systems Const Denies chills, Denies headache(s) and Denies weight loss ENT Denies headache(s) Card Denies chest pain and Denies syncope Resp Denies chest congestion and Denies cough GI Denies abdominal pain, Denies change in stool character, Denies nausea and Denies vomiting Musc Denies deformity and Denies joint swelling Neuro Denies syncope and Denies headache(s) Physical exam (Primary Care) Vital Signs: Last Vital Signs Pulse 82 08/21/22 10:28 BP 120/72 08/21/22 10:28 Pulse Ox 97 08/21/22 10:28 Oxygen Delivery Method Room Air 08/21/22 10:28 BMI result Body Mass Index 32.3 Tobacco/Smoking Status: Tobacco use Status Tobacco use date assessed 08/21/22 08/21/22 10:33 Patient Tobacco Use Status Current everyday Tobacco 08/21/22 10:33 Tobacco use type Cigarette 08/21/22 10:33 e-Cigarette/Vaping Use Never Used 08/21/22 10:33 Thrive Assessment: Date of Thrive Assessment Date Thrive assessed 03/09/22 08/21/22 10:33 Assessment and Plan Assessment & Plan (1) Intermittent palpitations: Code(s): R00.2 - Palpitations Plan: ekg and labs Orders: Orders Basic Metabolic Panel Today R00.2 - Palpitations Thyroid Stimulating Hormone Today E03.9 - Hypothyroidism, unspecified ECG 12 lead EKG Today R00.2 - Palpitations Complete Blood Count Auto Diff Today D64.9 - Anemia, unspecified XR chest 2V Today R06.00 - Dyspnea, unspecified XR foot LT 2V Today M79.672 - Pain in left foot XR foot RT 2V Today M79.673 - Pain in unspecified foot Coding Level of Care Code Est Pt Level 3 (17577) Diagnoses Intermittent palpitations R00.2
[2022-08-21 10:28] VITALS: BP 120/72; PULSE 82; O2SAT 97; BMI 32.3
== END 2022-08-21 10:42 | disposition home or self-care (01) ==
PROVIDERS: PCP Internal Medicine; Visit Provider Internal Medicine
DX: R00.2 Palpitations (principal)
CPT/HCPCS: 99213

== ENCOUNTER 2022-08-21 10:53 | Outpatient (REF) | payer OTHER, SELFPAY ==
--- NOTE | ~2022-08-21 | XR_ITS ---
EXAMINATION: XR FOOT, RIGHT CLINICAL INFORMATION: Pain in unspecified foot COMPARISON: 11/20/2015 TECHNIQUE: AP, lateral, and oblique views of the right foot. FINDINGS: No fracture or dislocation. No bony erosions. Some spurring in the talus is chronic. Small os peroneus. No joint effusion. XR/XR foot RT 2V IMPRESSION: No fracture or dislocation.
--- NOTE | ~2022-08-21 | XR_ITS ---
EXAMINATION: XR FOOT, LEFT CLINICAL INFORMATION: Pain in left foot COMPARISON: None available. TECHNIQUE: AP, lateral, and oblique views of the left foot. FINDINGS: No fracture or dislocation. Normal alignment. No erosions. Small Achilles enthesophyte. No joint effusion. Soft tissues unremarkable. XR/XR foot LT 2V IMPRESSION: 1. No fracture or dislocation. 2. Small Achilles enthesophyte.
--- NOTE | ~2022-08-21 | XR_ITS ---
EXAMINATION: XR CHEST CLINICAL INFORMATION: Dyspnea COMPARISON: 10/30/2014 TECHNIQUE: 2 views of the chest were obtained. FINDINGS: No significant abnormality is noted involving the heart, lungs, mediastinum, bony thorax or soft tissues. XR/XR chest 2V IMPRESSION: No acute cardiopulmonary process.
--- NOTE | 2022-08-21 11:00 | ECG_ITS ---
Test Reason : PALPITATIONS Blood Pressure : / mmHG Vent. Rate : 076 BPM Atrial Rate : 076 BPM P-R Int : 156 ms QRS Dur : 084 ms QT Int : 384 ms P-R-T Axes : 065 036 043 degrees QTc Int : 432 ms Normal sinus rhythm Normal ECG When compared with ECG of 18-MAY-2016 11:20, No significant change was found Referred By: Jaya Yousif Electronically Signed By:Sachin Gandhi
[2022-08-21 11:04] LABS: MANUAL DIFF FLAG NO
[2022-08-21 12:48] LABS: Basophils Percent Auto 0.6 % (0-2); Eosinophils Absolute Auto 0.1 X10*3/uL (0.0-0.4); Eosinophils Percent Auto 1.8 % (0-4); Hematocrit 42.9 % (37.0-47.0); Imm Gran Abs Auto 0.02 X10*3/uL (0.00-0.03); Imm Gran Pct Auto 0.3 % (0.0-0.4); Lymphocytes Absolute Auto 1.8 X10*3/uL (1.2-4.9); Lymphocytes Percent Auto 27.6 % (20-40); Mean Corpuscular HGB Conc 32.6 g/dl (31.0-35.0); Mean Corpuscular Hemoglobin 30.6 pg (27.0-33.0); Mean Corpuscular Volume 93.9 fL (80.0-98.0); Mean Platelet Volume 10.8 fL (9.4-12.3); Monocytes Absolute Auto 0.3 X10*3/uL (0.1-1.2); Monocytes Percent Auto 4.8 % (2-11); Neutrophils Absolute Auto 4.3 x10*3/uL (2.0-8.3); Neutrophils Percent Auto 64.9 % (45-73); Platelet Count 284 X10*3/uL (160-400); Red Blood Count 4.57 X10*6/uL (4.20-5.50); Red Cell Distribution Width 12.9 % (11.0-16.0); White Blood Count 6.7 X10*3/uL (4.8-10.8)
[2022-08-21 13:26] LABS: Anion Gap 13 (12-20); Blood Urea Nitrogen 8 mg/dL (9-16); Calcium 9.6 mg/dL (8.4-10.2); Carbon Dioxide 26 mmol/L (22-29); Chloride 108 mmol/L (96-108); Estimated Glomerular Filt Rate > 60; Glucose Random 99 mg/dL (60-115); Sodium 143 mmol/L (135-145)
[2022-08-21 13:43] LABS: Thyroid Stimulating Hormone 0.92 uIU/mL (0.32-4.0)
== END 2022-08-21 10:54 | disposition home or self-care (01) ==
LOC: HO.XRAY 10:53
PROVIDERS: PCP Internal Medicine; Visit Provider Internal Medicine
DX: R00.2 Palpitations (principal); M79.672 Pain in left foot; R06.00 Dyspnea, unspecified; M79.671 Pain in right foot; E03.9 Hypothyroidism, unspecified; D64.9 Anemia, unspecified
CPT/HCPCS: 36415; 71046; 73620; 80048; 84443; 85025; 93005

== ENCOUNTER → 2022-08-21 11:00 | Outpatient (BNV) | payer OTHER, SELFPAY | PROVIDERS: PCP Internal Medicine; Visit Provider Internal Medicine Cardiovascular Disease | DX: R00.2 Palpitations (principal) | CPT/HCPCS: 93010 ==

== ENCOUNTER 2022-10-20 13:29 | Day surgery (SDC) | payer OTHER, SELFPAY ==
[2022-10-17 15:04] VITALS: BMI 32.3
--- NOTE | 2022-10-19 13:13 | P.CONAN_ITS ---
Documented by User: Shannon Espinoza NP 10/19/22 13:14 HPI - Anesthesia Eval Consult details Narrative: 47yo F for Colonoscopy PMFSH Active Problems Active Problems: All Active Problems (Updated 10/17/22 @ 14:57 by Maria Guadalupe Thomas RN) Intermittent palpitations (Acute) Rectal bleeding (Acute) Hip pain (Acute) Nephrolithiasis (Acute) Lower extremity pain (Acute) Endometritis (Acute) Encounter for IUD insertion (Acute) Abnormal uterine bleeding (AUB) (Acute) Menorrhagia with regular cycle (Acute) Physical exam (Acute) Bacterial vaginosis (Acute) Anemia (Acute) Hematuria (Acute) Alopecia (Acute) Potential exposure to STD (Acute) Well woman exam with routine gynecological exam (Acute) Pelvic pain (Acute) Back pain (Acute) Abdominal pain (Acute) Past Medical History Medical History Intermittent palpitations Back pain Anemia Family History Family History Father No problems noted. Mother Diabetes Hypertension Sister Asthma Family history of thyroid problem Family history of problems with anesthesia: No Surgical History Surgical History History of endometrial ablation History of cholecystectomy History of Problems with Anesthesia: No Social History Social History Housing: Apartment Alcohol intake: current Alcohol intake frequency: holidays/special occasions only Patient Tobacco Use Status: Current everyday Tobacco user Tobacco use type: Cigarette Cigarette Packs Per Day: 0.5 Cigarettes Per Day: 10 Years Smoked: 20 e-Cigarette/Vaping Use: Never Used Second Hand Smoke Exposure: Yes service: No Current occupational status: employed Cognitive needs: No Hearing needs: No Vision needs: No Meds Allergies Allergy/AdvReac Type Severity Reaction Status Date / Time No Known Allergies Allergy Mild NOT Verified 08/21/22 10:27 APPLICABLE Exam Exam Date and Time: October 19, 2022 1313 Height,Weight and Vital Signs: Height 5 ft 7 in Weight 93.44 kg Pertinent Lab Results Pertinent Lab Results: Laboratory Tests 08/21/22 11:03 WBC 6.7 Hgb 14.0 Hct 42.9 Plt Count 284 Sodium 143 Potassium 4.0 Chloride 108 Carbon Dioxide 26 BUN 8 L Creatinine 0.87 Narrative Narrative: EKG 08/2022 Vent. Rate : 076 BPM Atrial Rate : 076 BPM P-R Int : 156 ms QRS Dur : 084 ms QT Int : 384 ms P-R-T Axes : 065 036 043 degrees QTc Int : 432 ms Normal sinus rhythm Normal ECG When compared with ECG of 18-MAY-2016 11:20, No significant change was found Assessment and Plan Assessment Anesthesia Assessment: Chart Reviewed Final Anesthetic Review Family History of Problems with Anesthesia: No History of Problems with Anesthesia: No Documented by User: Afia Montez MD 10/20/22 14:43 [facility] Active Problems Active Problems: All Active Problems (Updated 10/20/22 @ 14:16 by Afia Montez MD) Intermittent palpitations (Acute) Rectal bleeding (Acute) Hip pain (Acute) Nephrolithiasis (Acute) Lower extremity pain (Acute) Endometritis (Acute) Encounter for IUD insertion (Acute) Abnormal uterine bleeding (AUB) (Acute) Menorrhagia with regular cycle (Acute) Physical exam (Acute) Bacterial vaginosis (Acute) Anemia (Acute) Hematuria (Acute) Alopecia (Acute) Potential exposure to STD (Acute) Well woman exam with routine gynecological exam (Acute) Pelvic pain (Acute) Back pain (Acute) Abdominal pain (Acute) Smoker H/o intermittent palpitations. 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 Mother Diabetes Hypertension Sister Asthma Family history of thyroid problem Surgical History Surgical History History of endometrial ablation History of cholecystectomy Social History Social History Housing: Apartment Alcohol intake: current Alcohol intake frequency: holidays/special occasions only Patient Tobacco Use Status: Current everyday Tobacco user Tobacco use type: Cigarette Cigarette Packs Per Day: 0.5 Cigarettes Per Day: 10 Years Smoked: 20 e-Cigarette/Vaping Use: Never Used Second Hand Smoke Exposure: Yes service: No Current occupational status: employed Cognitive needs: No Hearing needs: No Vision needs: No Meds Allergies Allergy/AdvReac Type Severity Reaction Status Date / Time No Known Allergies Allergy Mild NOT Verified 08/21/22 10:27 APPLICABLE Exam Height,Weight and Vital Signs: Height 5 ft 7 in Weight 93.44 kg Vital Signs Temp Pulse Resp BP Pulse Ox O2 Del Method 10/20/22 13:50 97.0 F 94 18 107/72 99 Room Air Pertinent Lab Results Pertinent Lab Results: Laboratory Tests 08/21/22 11:03 WBC 6.7 Hgb 14.0 Hct 42.9 Plt Count 284 Sodium 143 Potassium 4.0 Chloride 108 Carbon Dioxide 26 BUN 8 L Creatinine 0.87 Lab Results 10/20/22 Range/Units 13:40 Urine Test NEGATIVE (NEGATIVE) Airway Mallampati Class: II TM Dist: >3cm Neck ROM: Full Denture: Upper Loose/Missing/Broken Teeth: Yes (Missing teeth bottom. Denies broken or loose teeth) Heart: RRR Lungs: CTAB Assessment and Plan Assessment Anesthesia Assessment: Anesthesia Plan Discussed Final Anesthetic Review NPO: Yes ASA Class: II Final Preanesthetic Review: No Changes in Pt Med Stat, Meds/Allgs Chart Reviewed, Consent Obtained/Reviewed and Anes Risks/Benef Reviewed Patient Risk: Intermediate Procedure Risk: Low Assessment/Block/Sedation in SS: Assess/Block/Sedation-SS Anesthetic Plan Anesthetic Plan: MAC: Disposition: Standard PACU
--- NOTE | 2022-10-20 13:46 | MHC.SHP ---
Pre-Procedural Eval Section A Date of Service: 10/20/22 Section B Chief Complaint: Rectal bleeding Details of Present Illness: Medical History Anemia Surgical History History of cholecystectomy History of endometrial ablation Present Medications: see Short Stay Collaborative assessment Allergies: Allergies Allergy/AdvReac Type Severity Reaction Status Date / Time No Known Allergies Allergy Mild NOT Verified 08/21/22 10:27 APPLICABLE Review of Systems Review of Systems Comment: Ten point ROS negative Exam Exam Comment: Gen appear: No acute distress HEENT: no icterus Chest: No overt resp distress Abd: soft, nontender, nondistended Psych: Stable affect, answering questions appropriately Neuro: A/Ox3 noted to move all extremities spontaneously Ext: no peripheral edema Plan Diagnosis/Plan: Unchanged I have reviewed the history and physical and performed a pertinent physical examination on my patient. No changes have occurred unless specified. Time Spent With Patient Time: Total time managing care of this patient today ____ minutes.
[2022-10-20 13:50] VITALS: BP 107/72; PULSE 94; RESP 18; TEMP 36.1; O2SAT 99
[2022-10-20 13:53] LABS: UPreg QC Valid YES; Urine Pregnancy NEGATIVE (NEGATIVE)
[2022-10-20] MEDS: Lactated Ringers 1,000 ML 100 ML IVCONT (14:15)
--- NOTE | 2022-10-20 15:40 | P.OP_ITS ---
Operative Note Operative Note Date of Service: 10/20/22 Narrative: Procedure: Colonoscopy Indication: Rectal bleeding Endoscopist: Isadora Plaza MD Anesthesia Provider: Dr Afia Montez Anesthesia type: MAC Instrument: Olympus [id number]-H190L Consent: Indication, risks vs benefits, and alternatives were discussed with the patient who gave written informed consent to proceed. EKG, pulse, pulse oximetry and blood pressure were monitored throughout the procedure. Please see anesthesia flowsheet. Procedure: The patient was brought to the procedure room and placed in the left lateral decubitus position. IV medications were administered by the anesthesia provider in attendance. A digital rectal exam was performed which was abnormal due to finding of ext hemorrhoid.A distal attachment cap was affixed to the tip of the scope and the colonoscope was then inserted through the anus and advanced through the colon to the cecum at 75 cm,and terminal ileum. Appendiceal orifice and ileocecal valve were identified. Mucosa was carefully examined under high definition white light as the instrument was slowly withdrawn in a retrograde panoramic fashion. Retroflexion was performed in rectum. The procedure was not difficult. There were no immediate obvious complications. The quality of the prep was BBPS: 3+2+3 = adequate Withdrawal time 8 minutes. Limitations: No limitations. Findings: Mucosa: Normal to cecum and terminal ileum. Protruding lesions: * 2 sessile polyp of size 4-6 mm in sigmoid colon. Cold snare polypectomy was performed. The polyps were completely removed and retrieved. * Large internal hemorrhoids with stigmata of recent bleeding. Impression: 1. Normal colon and terminal ileum mucosa 2. Total of 2 polyps removed from sigmoid colon. 3. External and internal hemorrhoids Recommendations: - Rectal bleeding likely from large hemorrhoids - Hydrocort supp Rxed - Follow path results. - Repeat colonoscopy in 7-10 years if the polyps are adenomas.
[2022-10-20 16:06] VITALS: BP 102/63; PULSE 79; RESP 18; TEMP 36.4; O2SAT 97
[2022-10-20 16:21] VITALS: BP 117/82; PULSE 68; RESP 14; O2SAT 99
[2022-10-20 16:36] VITALS: BP 119/80; PULSE 70; RESP 16; TEMP 36.2; O2SAT 98
== END 2022-10-20 16:45 | disposition home or self-care (01) ==
PROVIDERS: Nurse Practitioner; PCP Internal Medicine; Visit Provider Internal Medicine
PROC: 0DJD8ZZ Inspection of Lower Intestinal Tract, Via Natural or Artificial Opening Endoscopic (ICD-10-PCS; CPT 45378; principal; 2022-10-20 14:00)
DX: K62.5 Hemorrhage of anus and rectum (principal); D12.5 Benign neoplasm of sigmoid colon; K64.8 Other hemorrhoids; K64.4 Residual hemorrhoidal skin tags; D64.9 Anemia, unspecified; Z90.49 Acquired absence of other specified parts of digestive tract; F17.210 Nicotine dependence, cigarettes, uncomplicated
CPT/HCPCS: 45385; 81025; 88305

== ENCOUNTER → 2022-10-20 13:29 | Outpatient (BNV) | payer OTHER, SELFPAY | PROVIDERS: PCP Internal Medicine; Visit Provider Internal Medicine | DX: K62.5 Hemorrhage of anus and rectum (principal); D12.5 Benign neoplasm of sigmoid colon | CPT/HCPCS: 45385 ==

== ENCOUNTER 2022-12-14 12:53 | Emergency (ER) | payer OTHER, SELFPAY ==
[2022-12-14 13:03] VITALS: BP 118/83; PULSE 80; RESP 16; TEMP 36.6; O2SAT 100; BMI 31.3
--- NOTE | 2022-12-14 13:13 | ED.GENADULT ---
HPI - General Adult General Chief complaint: Upper Respiratory Symptoms Stated complaint: Sinus infection (?) Time Seen by Provider: 12/14/22 13:23 Source: patient Mode of arrival: ambulatory Limitations: no limitations History of Present Illness HPI narrative: Patient is a 47 year female presenting to the emergency department with complaint of sinus pain for the past 2 weeks. States symptoms began with nasal congestion then progressed to sinus pain. Also complains of excessive sneezing. Reports mild sore throat. Denies fevers. States that symptoms lasted for approximately 1 week, started to improve, then worsened again over the past few days. Denies any chest pain or shortness of breath. complaint: Sinus pain Onset (ago): week(s) Location: face Radiation: non-radiation Severity: moderate Quality: aching Pain Consistency: constant Relieving factors: none Exacerbating factors: eating Associated symptoms: other (Sore throat) Treatments prior to arrival: none Related Data Previous Rx's Medication Instructions Recorded hydrocortisone acetate 25 mg 25 mg [facility] BEDTIME #12 ea 10/20/22 rectal suppository (Anusol-HC) azithromycin 250 mg tablet See Rx Instructions PO .COMPLEX #6 12/14/22 tabs Allergies Allergy/AdvReac Type Severity Reaction Status Date / Time No Known Allergies Allergy Mild NOT Verified 12/14/22 13:03 APPLICABLE Review of Systems Review of Systems: As per HPI. Yes all other systems are reviewed and are negative Constitutional: Constitutional: Reports as per HPI PMFSH Past Medical History Medical History Intermittent palpitations Back pain Anemia Surgical History History of endometrial ablation History of cholecystectomy Family History Family History Father No problems noted. Mother Diabetes Hypertension Sister Asthma Family history of thyroid problem Social History Social History Housing: Apartment Alcohol intake: current Alcohol intake frequency: holidays/special occasions only Patient Tobacco Use Status: Current everyday Tobacco user Tobacco use type: Cigarette Cigarette Packs Per Day: 0.5 Cigarettes Per Day: 10 Years Smoked: 20 e-Cigarette/Vaping Use: Never Used Second Hand Smoke Exposure: Yes Advance Directives: No service: No Current occupational status: employed Cognitive needs: No Hearing needs: No Vision needs: No Physical Exam ED Vital Signs: Vital Signs - 24 hr 12/14/22 13:03 12/14/22 15:26 Temperature 97.9 F Pulse Rate 80 Respiratory Rate 16 16 Blood Pressure 118/83 Pulse Oximetry 100 Oxygen Delivery Method Room Air BMI result Body Mass Index 31.3 Vital signs have been reviewed and appear to be correct. Blood pressure normal. Heart rate normal. Respiratory rate normal. Temperature normal. Oxygen saturation normal. Const General: cooperative, healthy appearing and no acute distress Orientation/consciousness: oriented to person, oriented to place, oriented to time and patient oriented x3 Limitations: no limitations HENMT Head: Yes normocephalic and Yes atraumatic Ears: external ears normal, TM's normal bilaterally and EAC's normal General nose exam: Normal external nose present, Normal nasal mucous membranes and turbinates present and Normal septum present Face and sinus: Yes face symmetric and Yes sinus tenderness Mouth: oropharynx normal and moist mucous membranes Throat: Yes posterior oropharynx normal, Yes tonsils normal, Yes uvula midline and No uvular edema Eyes Pupils: Equal, round and reactive pupils present Neck Neck: Yes normal visual inspection and Yes supple Lymphatic: no lymphadenopathy noted Resp Effort & Inspection: normal respiratory effort and able to speak in complete sentences Auscultation: clear to auscultation bilaterally Cardio Rate: regular rate Rhythm: regular rhythm Heart sounds: S1 normal heart sound present and S2 normal heart sound present GI Palpation (GI): Soft to palpation and nontender Auscultation: normoactive bowel sounds General: Yes no CVA tenderness Back/Spine/Pelvis Back: no CVA tenderness Skin General skin exam: elasticity normal and turgor normal Neuro General: oriented to person, oriented to place, oriented to time, patient oriented x3, moves all extremities, no focal motor deficits and CN's II-XI intact bilaterally Cranial nerves: Yes Equal, round and reactive pupils present Cognition (Neuro): normal cognition Extrem General: Yes full ROM, Yes no pedal edema and Yes no calf tenderness Psych Mental Status: mental status grossly normal Affect: normal affect Thought process: Normal thought process present Course Course Course Narrative: RME: 47 yold female presents to the ED for sinus pain, sneezing, sore throat and nasal congestion. Covid, Influneza, and strep orderdd. positive for maxillary sinus pain Medical Decision Making Medical Decision Making [facility] Narrative: Patient is a 47 year female presenting to the emergency department with complaint of sinus pain for the past 2 weeks. On exam patient is awake, A+Ox3, VS WNL, afebrile, normal neurological exam without focal deficits, physical exam findings as above. Given reported symptoms and physical exam findings, initial differential includes sinusitis, viral illness, COVID, flu, strep pharyngitis. Swabs for COVID, flu, and strep all negative, patient updated on results. Will treat for sinusitis with azithromycin, advised patient she can continue to use [id number] cold medication as needed for nasal congestion and sneezing. Instructed patient follow-up with primary care provider this week. Return precautions discussed at bedside. Patient verbalized understanding of and agreement with plan. Differential Diagnosis Differential Diagnoses: The differential diagnosis associated with the presentation includes As per MDM. Lab Data [facility] Lab Attestation statement: I reviewed the patient's lab results. As per [facility]. Labs: Lab Results 12/14/22 Range/Units 13:28 COVID-19 (KORI) Negative (Negative) COVID-19 Clin Com See Note Influenza Type A (TRA) Negative (Negative) Influenza Type B (TRA) Negative (Negative) Influenza A & B Note See Note S. pyogenes GrpA TRA Negative (Negative) External Record Review External record reviewed: Inpatient record, Office record and Outpatient record Prescription Management I considered prescription management with: Antibiotic Discharge Plan Discharge Clinical Impression: Sinusitis Patient Disposition: Home, Self-Care Instructions: Rhinosinusitis (DC) Additional Instructions: You were evaluated in the emergency department today for sore throat and sinus pain. Your Covid, flu, and strep tests were all negative. You are being prescribed an antibiotic for sinusitis, please complete the full course of antibiotics as prescribed. You should ensure adequate fluid intake, and can use Tylenol 650 mg or ibuprofen 600 mg every 6 hours as needed for fever or discomfort. Please follow-up with your primary care provider this week. Return to the emergency department if you develop chest pain, worsening shortness of breath, difficulty swallowing, fever 100.4? F or greater or any other concerning symptoms. Prescriptions: New azithromycin 250 mg tablet See Rx Instructions .ROUTE .COMPLEX Qty: 6 0RF Rx Instructions: For 250 mg dose pack: take 500 mg today (day 1), then 250 mg for 4 days (days 2-5) No Action hydrocortisone acetate [Anusol-HC] 25 mg suppository 25 mg [facility] BEDTIME Qty: 12 0RF Interventions: ED Discharge Assessment Last Done: 12/14/22 15:26 Discharge Date/Time: 12/14/22 15:29
[2022-12-14 13:51] LABS: COVID-19 Test Negative (Negative); IDNOW Serial# 9DB6401D
[2022-12-14 13:57] LABS: IDNOW Serial# 58CA691E; Influenza A Negative (Negative); Influenza B2 Negative (Negative)
[2022-12-14 14:09] LABS: IDNOW Serial# 08D9AD1C; Strep A Nucleic Acid Negative (Negative)
[2022-12-14 15:26] VITALS: RESP 16
== END 2022-12-14 15:29 | disposition home or self-care (01) ==
PROVIDERS: Physician Assistant; Emergency Provider Student in an Organized Health Care Education/Training Program; PCP Internal Medicine
DX: J32.9 Chronic sinusitis, unspecified (principal); J02.9 Acute pharyngitis, unspecified; Z11.52 Encounter for screening for COVID-19; F17.210 Nicotine dependence, cigarettes, uncomplicated
CPT/HCPCS: 87502; 87635; 87651; 99282; 99283

== ENCOUNTER 2023-02-23 12:47 | Outpatient (AMB) | payer OTHER, SELFPAY ==
[2023-02-23 12:50] VITALS: BP 110/72; PULSE 73; O2SAT 98; BMI 32.3
--- NOTE | 2023-02-23 12:50 | A.OFFPC_ITS ---
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 Nuisance Wildlife Control Operator: Not Required per policy Accompanied by: Self / Same As Patient Allergies No Known Allergies Allergy (Mild, Verified 02/23/23 12:51) NOT APPLICABLE Tobacco use date assessed: 02/23/23 Dental Screening Dental Screen Date: 02/23/23 Did you have a dental visit in the last 12 months?: No Did you have a dental problem in the last 6 months where you did not have access to dental care?: No Was dental information given to patient?: Patient has dentist HPI PE HPI Details healthy [facility] Medical History Intermittent palpitations Back pain Anemia Surgical History History of endometrial ablation History of cholecystectomy Family History Father No problems noted. Mother Diabetes Hypertension Sister Asthma Family history of thyroid problem Social History Housing: Apartment Alcohol intake: current Alcohol intake frequency: holidays/special occasions only Patient Tobacco Use Status: Current everyday Tobacco user Tobacco use type: Cigarette Cigarette Packs Per Day: 0.5 Cigarettes Per Day: 10 Years Smoked: 20 e-Cigarette/Vaping Use: Never Used Second Hand Smoke Exposure: Yes service: No Current occupational status: employed Cognitive needs: No Hearing needs: No Vision needs: No Female Reproductive History Menstrual Age of Menarche: 11 Questionnaire PHQ-9 Over the last 2 weeks, how often have you been bothered by any of the following problems? 1. Little interest or pleasure in doing things: not at all 2. Feeling down, depressed, or hopeless: not at all 3. Trouble falling or staying asleep, or sleeping too much: not at all 4. Feeling tired or having little energy: not at all 5. Poor appetite or overeating: not at all 6. Feeling bad about yourself - or that you are a failure or have let yourself or your family down: not at all 7. Trouble concentrating on things, such as reading the newspaper or watching television: not at all 8. Moving or speaking so slowly that other people could have noticed. Or the opposite - being so fidgety or restless that you have been moving around a lot more than usual: not at all 9. Thoughts that you would be better off or of hurting yourself in some way: not at all Total score: 0 Depression Screening Interpretation: Negative Depression Screening Done: Yes [id number] - PHQ-9 Billing: Yes Source: Developed by Drs. Fan Campos, Marva Vaca, Ever Edwards and colleagues, with an educational noemi from [employer]. Thrive Questionnaire Date Thrive assessed: 02/23/23 I am a: Patient What is your living situation today?: I have a steady place to live Within the past 12 months, did the food you bought not last and you didn't have the money to get more?: Never true Within the past 12 months, did you worry whether your food would run out before you got money to buy more?: Never true Do you have trouble paying for medicines?: No Do you have trouble getting transportation to medical appointments?: No Do you have trouble paying your heating and electricity bill?: No Do you have trouble taking care of your child, family member or friend?: No Do you have trouble with day-to-day activities such as bathing, preparing meals, shopping, managing finances, etc.?: No Are you currently unemployed and looking for a job?: No Are you interested in more education?: No Please select the resources that you would like help with: None THRIVE Score: 0 AUDIT C Alcohol Use Questionnaire (AUDIT-C) 1. How often do you have a drink containing alcohol?: Never 3. How often do you have six or more drinks on one occasion?: Never Total Score: 0 Score Reviewed/Action Taken: Yes FRANCOIS-7 AMB Questionnaire FRANCOIS-7 Date FRANCOIS - 7 assessed: 02/23/23 Feeling nervous, anxious, or on edge: 0 = Not at all Not being able to stop or control worryin = Not at all Worrying too much about different things: 0 = Not at all Trouble relaxin = Not at all Being so restless that it is hard to sit still: 0 = Not at all Becoming easily annoyed or irritable: 0 = Not at all Feeling afraid as if something awful might happen: 0 = Not at all Total FRANCOIS-7 score (0-4 normal; 5-9 mild; 10-14 moderate; 15-21 severe): 0 Source: Developed by Drs. Fan Campos, Marva Vaca, Ever Edwards and colleagues, with an educational noemi from [employer]. FRANCOIS-7 Assessment Billing FRANCOIS-7 Assessment Tool: FRANCOIS-7 Assessment [id number] Review of Systems Const Denies chills, Denies fatigue, Denies headache(s) and Denies weight loss Eyes Denies change in vision, Denies diplopia and Denies eye pain ENT Denies vertigo, Denies dizziness, Denies headache(s) and Denies nasal discharge Card Denies chest pain, Denies rapid heart rate and Denies dyspnea on exertion Resp Denies chest congestion, Denies cough, Denies pain with cough and Denies dyspnea on exertion GI Denies abdominal pain, Denies hematochezia and Denies change in bowel habits Musc Denies myalgias, Denies arthralgias and Denies joint swelling Skin/Breast Denies lesions and Denies unusual bruising Neuro Denies vertigo, Denies dizziness, Denies headache(s) and Denies focal weakness Endo Denies fatigue Physical exam (Primary Care) Vital Signs: Last Vital Signs Pulse 73 02/23/23 12:50 BP 110/72 02/23/23 12:50 Pulse Ox 98 02/23/23 12:50 Oxygen Delivery Method Room Air 02/23/23 12:50 BMI result Body Mass Index 32.3 Tobacco/Smoking Status: Tobacco use Status Tobacco use date assessed 02/23/23 02/23/23 12:52 Patient Tobacco Use Status Current everyday Tobacco 02/23/23 12:52 Tobacco use type Cigarette 02/23/23 12:52 e-Cigarette/Vaping Use Never Used 02/23/23 12:52 PHQ-9: PHQ-9 Score PHQ-9: Total score 0 02/23/23 12:52 Depression Screening Interpretation: Negative Thrive Assessment: Date of Thrive Assessment Date Thrive assessed 02/23/23 02/23/23 12:52 Const General: cooperative, healthy appearing and no acute distress Orientation/consciousness: oriented to person, oriented to place and oriented to time HENMT Head: Yes normal to inspection, Yes normocephalic and Yes atraumatic Mouth: Normal oral and palatal mucosa present and tongue normal Throat: Yes posterior oropharynx normal and Yes uvula midline Eyes General: appearance normal, both eyes and all related structures Neck Neck: Yes normal visual inspection, Yes full ROM and Yes no lymphadenopathy Thyroid: Thyroid normal Carotids: normal carotid upstroke Chest Chest palpation & inspection: normal inspection of the chest Resp Effort & Inspection: normal respiratory effort and able to speak in complete sentences Auscultation: clear to auscultation bilaterally Cardio Jugular venous distension: no JVD Palpation: normal PMI Rate: regular rate Rhythm: regular rhythm Heart sounds: S1 normal heart sound present and S2 normal heart sound present GI Inspection: Yes normal to inspection Palpation (GI): Soft to palpation and No hepatosplenomegaly present Auscultation: normal bowel sounds General: Yes no CVA tenderness Back/Spine/Pelvis Back: no CVA tenderness Skin General skin exam: no rashes or lesions noted Neuro General: oriented to person, oriented to place and oriented to time Extrem General: Yes normal to inspection and Yes full ROM Assessment and Plan Assessment & Plan (1) Physical exam: Code(s): Z00.00 - Encounter for general adult medical examination without abnormal findings Plan: do labs; healthy and can lift with no restrictions Orders: Orders Lipid Panel Today E78.5 - Hyperlipidemia, unspecified Complete Blood Count Auto Diff Today D64.9 - Anemia, unspecified Comprehensive [place]. Panel Fast Today N28.9 - Disorder of kidney and ureter, unspecified Thyroid Stimulating Hormone Today E03.9 - Hypothyroidism, unspecified UA and rflx microscopic Today N39.0 - Urinary tract infection, site not specif ied Medications: New metronidazole 500 mg PO BID 20 tabs 0RF Coding Level of Care Code Est Pt Prev Care 40-64y(42852) Diagnoses Physical exam Z00.00 Additional Codes FRANCOIS-7 Assessment Billing - FRANCOIS-7 Assessment Tool: FRANCOIS-7 Assessment [id number] ([id number])
== END 2023-02-23 13:06 | disposition home or self-care (01) ==
PROVIDERS: PCP Internal Medicine; Visit Provider Internal Medicine
DX: Z00.00 Encounter for general adult medical examination without abnormal findings (principal)
CPT/HCPCS: 99396

== ENCOUNTER 2023-02-23 13:21 | Outpatient (REF) | payer OTHER, SELFPAY ==
[2023-02-23 13:33] LABS: MANUAL DIFF FLAG NO
[2023-02-23 13:56] LABS: Appearance Urine Cloudy; Color Urine Yellow; Glucose Urine UA Negative (Negative); Leukocyte Esterase Urine Small (1+) (Negative); Nitrite Urine Negative (Negative); Specific Gravity - Urine 1.025 (1.005-1.025); UMIC TRIGGER UA YES; Urine Blood Moderate (2+) (Negative); Urine Ketones Negative (Negative); Urine Protein Negative (Neg-Trace)
[2023-02-23 14:01] LABS: Basophils Absolute Auto 0.1 X10*3/uL (0.0-0.2); Basophils Percent Auto 0.7 % (0-2); Eosinophils Absolute Auto 0.1 X10*3/uL (0.0-0.4); Eosinophils Percent Auto 1.5 % (0-4); Hematocrit 44.3 % (37.0-47.0); Hemoglobin 14.7 g/dl (12.0-16.0); Imm Gran Abs Auto 0.03 X10*3/uL (0.00-0.03); Imm Gran Pct Auto 0.4 % (0.0-0.4); Lymphocytes Absolute Auto 2.5 X10*3/uL (1.2-4.9); Lymphocytes Percent Auto 33.5 % (20-40); Mean Corpuscular HGB Conc 33.2 g/dl (31.0-35.0); Mean Corpuscular Hemoglobin 31.2 pg (27.0-33.0); Mean Corpuscular Volume 94.1 fL (80.0-98.0); Mean Platelet Volume 10.7 fL (9.4-12.3); Monocytes Absolute Auto 0.3 X10*3/uL (0.1-1.2); Monocytes Percent Auto 4.6 % (2-11); Neutrophils Absolute Auto 4.4 x10*3/uL (2.0-8.3); Neutrophils Percent Auto 59.3 % (45-73); Platelet Count 280 X10*3/uL (160-400); Red Blood Count 4.71 X10*6/uL (4.20-5.50); Red Cell Distribution Width 12.7 % (11.0-16.0); White Blood Count 7.4 X10*3/uL (4.8-10.8)
[2023-02-23 14:17] LABS: Bacteria Urine Trace (None Seen); Hyaline Casts Urine 0-2 /LPF (0-2); RBC Urine >20 /HPF (0-2); WBC Urine 0-5 /HPF (0-5)
[2023-02-23 14:53] LABS: Alanine Aminotransferase 50 U/L (0-31); Albumin Level 4.4 g/dL (3.5-5.0); Alkaline Phosphatase 104 U/L (39-117); Anion Gap 13 (12-20); Aspartate Amino Transferase 32 U/L (5-31); Bilirubin Total 0.5 mg/dL (0.0-1.0); Blood Urea Nitrogen 8 mg/dL (9-16); Calcium 9.7 mg/dL (8.4-10.2); Carbon Dioxide 28 mmol/L (22-29); Chloride 105 mmol/L (96-108); Cholesterol 215 mg/dL (<200); Estimated Glomerular Filt Rate > 60; Glucose Fasting 108 mg/dL (60-99); HDL Cholesterol 40 mg/dL (>40); LDL Cholesterol Calculated 149 mg/dL (<100); Sodium 142 mmol/L (135-145); Total Protein 7.7 g/dL (6.5-8.0); Triglycerides 130 mg/dL (<150)
[2023-02-23 15:09] LABS: Thyroid Stimulating Hormone 1.11 uIU/mL (0.32-4.0)
== END 2023-02-23 13:22 | disposition home or self-care (01) ==
LOC: HO.LAB 13:21
PROVIDERS: PCP Internal Medicine; Visit Provider Internal Medicine
DX: N28.9 Disorder of kidney and ureter, unspecified (principal); E78.5 Hyperlipidemia, unspecified; D64.9 Anemia, unspecified; E03.9 Hypothyroidism, unspecified
CPT/HCPCS: 36415; 80053; 80061; 81001; 84443; 85025

== ENCOUNTER 2023-02-27 15:57 | Outpatient (AMB) | payer OTHER, SELFPAY ==
--- NOTE | 2023-02-27 16:19 | AM.OFFVISNUR ---
Intake Intake Visit Reasons: TB/Flu Shots Allergies No Known Allergies Allergy (Mild, Verified 02/23/23 12:51) NOT APPLICABLE Office Procedures Flu Questionnaire Does the patient have a severe egg allergy?: No Does the patient have severe life threatening allergies?: No Does the patient have a fever or illness today?: No Has the patient ever had Guillain-Irving Syndrome?: No Has the patient ever had any past reaction to a flu shot?: No Office Meds tuberculin PPD 5 tub. unit/0.1 mL intradermal injection solution Performing Provider: Jaya Yousif MD Performing Location: [facility] Administered by: Brina Sparks RN on 02/27/23 16:30 Dose Route Admin Location Dispensed Lot Number Expiration Date NDC Inserting Press Operator 0.1 mL intradermal left forearm 0.1 mL [id number] 02/03/26 60869-234-36 [employer] Immunizations flu vacc [id number] 6mos up(PF) 60 mcg(15 mcgx4)/0.5 mL IM syringe Performing Provider: Jaya Yousif MD [facility] Administered by: Brina Sparks RN on 02/27/23 16:30 Dose Route Admin Location Dispensed Lot Number Expiration Date NDC Inserting Press Operator 0.5 mL IM Left Deltoid 0.5 mL [id number] 08/05/23 79128-753-61 [employer] VIS Given Date VIS Provided VIS Publication Date 02/27/23 Single Vaccine 20 Eligibility Eligibility Date Funding Source Not [facility] Eligible 02/27/23 Private Coding Assessment & Plan Assessment & Plan Orders: Orders Influenza [id number] Immunization Today Z23 - Encounter for immunization AMB PPD Planted Today Z11.1 - Encounter for screening for respiratory tuberculosis
== END 2023-02-27 16:32 | disposition home or self-care (01) ==
PROVIDERS: PCP Internal Medicine; Visit Provider Internal Medicine
DX: Z23 Encounter for immunization (principal); Z11.1 Encounter for screening for respiratory tuberculosis
CPT/HCPCS: 86580; 90471; 90686

== ENCOUNTER 2023-03-08 07:29 | Outpatient (REF) | payer OTHER, SELFPAY ==
[2023-03-08 11:41] LABS: CT PCR NOT DETECTED (Not Detect.); NG PCR NOT DETECTED (Not Detect.)
[2023-03-08 14:08] LABS: BV Int Neg Control Negative (Negative); BV Int Pos Control Positive (Positive)
== END 2023-03-08 07:30 | disposition home or self-care (01) ==
LOC: HO.LNP 07:29
PROVIDERS: PCP Internal Medicine; Visit Provider Obstetrics & Gynecology
DX: R31.29 Other microscopic hematuria (principal); N76.0 Acute vaginitis
CPT/HCPCS: 0353U; 81002; 87086; 87480; 87510; 87660; 99212

== ENCOUNTER 2023-03-08 07:29 | Outpatient (AMB) | payer OTHER, SELFPAY ==
[2023-03-08 07:39] VITALS: BP 118/74; BMI 32.1
--- NOTE | 2023-03-08 07:39 | A.OFFVIS_ITS ---
Intake Vital Signs 03/08/23 07:39 Height 5 ft 7 in Weight 205 lb 0.478 oz BMI 32.1 BP 118/74 Intake Visit Reasons: vag irritation Intake Note: c/o of yeast infection Social Studies Teacher Required: No Information Interpreted: non-clinical & clinical Bilingual Kindergarten Teacher: Bilingual Kindergarten Teacher Present (Kathrine HERNANDEZ) Accompanied by: Self / Same As Patient Allergies No Known Allergies Allergy (Mild, Verified 03/08/23 07:40) NOT APPLICABLE HPI HPI Comments History of Present Illness Details Presenting complaining of bilateral lower pelvic pain associated with vulvovaginal irritation and whitish discharge with no odor, no associated urinary or GI symptoms, no fever or chills, no nausea or vomiting. REPLACED BY [facility] Medical History Intermittent palpitations Back pain Anemia Surgical History History of endometrial ablation History of cholecystectomy Family History Father No problems noted. Mother Diabetes Hypertension Sister Asthma Family history of thyroid problem Social History Housing: Apartment Alcohol intake: current Alcohol intake frequency: holidays/special occasions only Patient Tobacco Use Status: Current everyday Tobacco user Tobacco use type: Cigarette Cigarette Packs Per Day: 0.5 Cigarettes Per Day: 10 Years Smoked: 20 e-Cigarette/Vaping Use: Never Used Second Hand Smoke Exposure: Yes service: No Current occupational status: employed Cognitive needs: No Hearing needs: No Vision needs: No Female Reproductive History Menstrual Age of Menarche: 11 Review of Systems Const All systems reviewed & are unremarkable except as noted in HPI and below Physical Exam Vital Signs: Last Vital Signs BP 118/74 03/08/23 07:39 BMI result Body Mass Index 32.1 General: Yes no CVA tenderness External Female Exam: normal external appearance and normal appearance of the urethra Speculum Exam - Vagina: normal appearance of the vagina, normal palpation, no lesions and no masses Speculum Exam - Cervix: normal appearance of the cervix, normal palpation, no lesions, no masses and nontender Bimanual exam- vagina & uterus: normal bimanual exam, normal palpation, uterine size normal, normal palpation, uterine shape normal, No Cervical tenderness present and non-tender Bimanual Exam- Adnexa, other: normal adnexae Back/Spine/Pelvis Back: no CVA tenderness Assessment & Plan Assessment & Plan (1) Vulvovaginitis: Code(s): N76.0 - Acute vaginitis Plan: GC/CT, Bacterial Vaginosis panel taken, Terazol 0.8% q.h.s. for 3 days was sent to the patient's pharmacy. The patient was instructed to call if symptoms don't improve in 48 hours. (2) Pelvic pain: Code(s): R10.2 - Pelvic and perineal pain Plan: Urine dip showed positive hematuria with leukocyte and urine test done in the office was negative. GC and chlamydia taken and pelvic ultrasound ordered. Discussed with the patient the differential diagnosis of pelvic pain including but not limited to adnexal, uterine masses, pelvic infections (PID), GI the (Irritable bowel syndrome, diverticulitis, others), musculoskeletal, myofascial pain abdominal wall , adhesions, endometriosis, psychological and others causes. Will check results and treat accordingly. All questions answered, the patient verbalized understanding. Instructed the patient to schedule follow-up appointment in 2 weeks (3) Microscopic hematuria: Code(s): R31.29 - Other microscopic hematuria Plan: Urine dip showed microscopic hematuria, will send urine for culture and repeat urine dip. The patient has been prescribed Macrodantin by her PCP. If urine dip was persistent microscopic hematuria will investigate further. Instructions given the patient to schedule a 2 week repeat urine dip appointment Orders: Orders Bacterial Vaginosis Panel Today N76.0 - Acute vaginitis US pelvic and transvaginal Today R10.2 - Pelvic and perineal pain CT NG by PCR Today N76.0 - Acute vaginitis Medications: New terconazole 0.8% 1 appful vaginal BEDTIME 3 days 20 grams 0RF Coding Level of Care Code Est Pt Level 3 (96321) Diagnoses Vulvovaginitis N76.0 Pelvic pain R10.2 Microscopic hematuria R31.29
== END 2023-03-08 07:52 | disposition home or self-care (01) ==
LOC: HO.HWS 07:29
PROVIDERS: PCP Internal Medicine; Visit Provider Obstetrics & Gynecology
DX: N76.0 Acute vaginitis (principal); R10.2 Pelvic and perineal pain; R31.29 Other microscopic hematuria
CPT/HCPCS: 99213

== ENCOUNTER 2023-03-18 22:53 | Emergency (ER) | payer OTHER, SELFPAY ==
--- NOTE | ~2023-03-18 | CT_ITS ---
EXAMINATION: CT ABDOMEN AND PELVIS WITHOUT CONTRAST CLINICAL INFORMATION: Pain. COMPARISON: None available. TECHNIQUE: Multidetector volumetric imaging was performed from the superior aspect of the liver through the pubic symphysis. Sagittal and coronal reformatted images were obtained on the technologist's workstation. This CT examination was performed using dose optimization techniques as appropriate, variously including the following: *Automated exposure control *Adjustment of mA and/or kV according to patient size (this includes techniques or standardized protocols for targeted exams where dose is matched to indication/reason for exam; i.e. extremities or head) *Use of iterative reconstruction technique DLP: 679 mGy-cm FINDINGS: LUNG BASES: The visualized lung bases are unremarkable. LIVER, GALLBLADDER, AND BILIARY TREE: There is a stable 1.6 cm hypodensity right lobe the liver. There is no intrahepatic biliary duct dilatation. There has been a prior cholecystectomy. PANCREAS: Unremarkable. SPLEEN: Unremarkable. ADRENAL GLANDS: Unremarkable. KIDNEYS AND URETERS: The kidneys are normal in size, shape, and attenuation. There is a nonobstructing 5 mm calculus lower pole left kidney. There is no hydronephrosis. BLADDER: Unremarkable. GASTROINTESTINAL TRACT: The small and large bowel are unremarkable. The appendix is unremarkable. ABDOMINAL WALL: No significant hernia is appreciated. LYMPH NODES: Normal. VASCULAR: Unremarkable. PELVIC VISCERA: Unremarkable. OSSEOUS STRUCTURES: Unremarkable. CT/CT abdomen pelvis wo IV con IMPRESSION: Nonobstructing 5 mm calculus lower pole left kidney. Otherwise unremarkable exam. Fleischner guidelines were followed.
[2023-03-18 22:55] VITALS: BP 107/76; PULSE 97; RESP 16; TEMP 36.6; O2SAT 95; BMI 33.1
--- NOTE | 2023-03-18 23:28 | ED_ITS ---
HPI - Abdominal Pain General Chief Complaint: Abdominal Pain Stated Complaint: lower adb pain Time Seen by Provider: 03/18/23 23:13 Source: patient Mode of arrival: ambulatory Limitations: no limitations History of Present Illness HPI narrative: 47-year-old female with a history of cholecystectomy, renal colic presents to the ER with complaints of bilateral flank pain this morning. Patient reports she has had chronic abdominal pain for many weeks but the back pain is a new symptom. She has a history of kidney stones and states this feels similar. She denies any urinary symptoms, fevers, chills, vomiting. Related Data Previous Rx's Medication Instructions Recorded nitrofurantoin macrocrystal 100 mg 100 mg PO BID #14 caps 02/28/23 capsule (Macrodantin) metronidazole 0.75 % (37.5 mg/5 1 appful vaginal BID 5 days #70 03/02/23 gram) vaginal gel grams metronidazole 500 mg tablet 500 mg PO BID 7 days #14 tabs 03/08/23 terconazole 0.8 % vaginal cream 1 appful vaginal BEDTIME 3 days 03/08/23 #20 grams cyclobenzaprine 10 mg tablet 10 mg PO TID PRN muscle spasm #15 03/19/23 tabs ibuprofen 600 mg tablet 600 mg PO Q8H PRN pain #30 tabs 03/19/23 Allergies Allergy/AdvReac Type Severity Reaction Status Date / Time No Known Allergies Allergy Mild NOT Verified 03/08/23 07:40 APPLICABLE Review of Systems Review of Systems Yes all other systems are reviewed and are negative Constitutional: Reports no additional constitutional complaints, Denies body ache(s), Denies chills, Denies fever(s), Denies headache(s) and Denies weakness Eyes: Reports no additional eye complaints and Denies change in vision Reports system reviewed and no additional complaints, except as documented, Denies dizziness, Denies headache(s), Denies nasal congestion, Denies nasal discharge and Denies neck pain Cardiovascular: Reports no additional cardiovascular complaints, Denies chest pain, Denies leg edema and Denies dyspnea Respiratory: Reports no additional respiratory complaints, Denies cough and Denies dyspnea Gastrointestinal: Reports no additional gastrointestinal complaints, Reports abdominal pain, Denies diarrhea, Denies nausea and Denies vomiting Genitourinary: Reports no additional female genitourinary complaints, Denies dysuria, Denies pelvic pain, Denies urinary incontinence, Denies urinary hesitancy, Denies urinary urgency and Denies vaginal discharge Musculoskeletal: Reports no additional musculoskeletal complaints, Reports back pain, Denies arthralgias, Denies joint swelling, Denies neck pain, Denies numbness and Denies tingling Skin/Breast: Reports system reviewed and no additional complaints, except as docu and Denies rash Reports system reviewed and no additional complaints, except as documented, Denies Abnormal speech present, Denies dizziness, Denies headache(s), Denies numbness, Denies tingling and Denies weakness [facility] Past Medical History Attestation statement: The following information was validated with the patient. Source: old records reviewed and nursing notes reviewed Medical History Intermittent palpitations Back pain Anemia Surgical History History of endometrial ablation History of cholecystectomy Family History Family History Father No problems noted. Mother Diabetes Hypertension Sister Asthma Family history of thyroid problem Social History Social History Housing: Apartment Alcohol intake: current Alcohol intake frequency: holidays/special occasions only Patient Tobacco Use Status: Current everyday Tobacco user Tobacco use type: Cigarette Cigarette Packs Per Day: 0.5 Cigarettes Per Day: 10 Years Smoked: 20 e-Cigarette/Vaping Use: Never Used Second Hand Smoke Exposure: Yes Use of substances other than those prescribed or required for medical reasons: No Advance Directives: No Advance Directives Information Provided: Yes service: No Current occupational status: employed Cognitive needs: No Hearing needs: No Vision needs: No Physical Exam ED Vital Signs: Vital Signs - 24 hr 03/18/23 22:55 03/19/23 00:37 Temperature 97.8 F 98.5 F Pulse Rate 97 69 Respiratory Rate 16 16 Blood Pressure 107/76 102/70 Pulse Oximetry 95 97 Oxygen Delivery Method Room Air Room Air BMI result Body Mass Index 33.1 Const General: cooperative, healthy appearing, comfortable and no acute distress Orientation/consciousness: patient oriented x3 Limitations: no limitations HENMT Head: Yes normal to inspection Ears: hearing grossly normal bilaterally General nose exam: Normal external nose present Face and sinus: Yes normal facial exam Mouth: Normal oral and palatal mucosa present Throat: Yes posterior oropharynx normal Eyes General: appearance normal, both eyes and all related structures Pupils: Equal, round and reactive pupils present Neck Neck: Yes normal visual inspection Chest Chest palpation & inspection: normal inspection of the chest Resp Effort & Inspection: normal respiratory effort Auscultation: clear to auscultation bilaterally Cardio Rate: regular rate Rhythm: regular rhythm Peripheral pulses: Peripheral pulses 2+ throughout GI Inspection: Yes normal to inspection Palpation (GI): Soft to palpation and nontender Auscultation: normal bowel sounds General: Yes CVA tenderness (bilateral flank) Back/Spine/Pelvis Back: CVA tenderness (bilateral flank) Thoracic/Lumbar Spine: thoracic and lumbar spine normal to inspection Skin General skin exam: no rashes or lesions noted Neuro General: patient oriented x3, no focal motor deficits and normal sensation to monofilament Cranial nerves: Yes Equal, round and reactive pupils present Cognition (Neuro): normal cognition Speech: No Abnormal speech present Gait exam (Neuro): Normal gait present Motor exam (neuro): 5/5 motor strength present throughout Extrem General: Yes normal to inspection Course Course Course Narrative: CT shows no acute finding. Labs and UA are unremarkable. Pain is improved. Likely musculoskeletal pain. Patient be discharged home with muscle relaxant NSAIDs. Reviewed worrisome signs and symptoms of when to return to the emergency room. Comfortable plan for discharge Medical Decision Making Medical Decision Making MDM Narrative: 47-year-old female with a history of cholecystectomy, renal colic presents to the ER with complaints of bilateral flank pain this morning. Patient reports she has had chronic abdominal pain for many weeks but the back pain is a new symptom. She has a history of kidney stones and states this feels similar. She denies any urinary symptoms, fevers, chills, vomiting. Bilateral CVAT. ?MS back pain. No focal abdominal pain on exam. However, d/t history consider renal colic. Will obtain labs, UA, CT Will provide analgesia Differential Diagnosis Differential Diagnoses: The differential diagnosis associated with the presentation includes Renal colic, pyelonephritis, back pain -no neurological deficits or red flag symptoms suggest epidural abscess, caude equina, cord compression, renal colic, pyelonephritis Admission/Observation Consideration of admission/observation: Escalation of care including admission/observation considered -no neurological deficits or red flag symptoms suggest epidural abscess, caude equina, cord compression, renal colic, pyelonephritis warranting additional imaging Lab Data MDM Lab Attestation statement: I reviewed the patient's lab results. 03/18/23 Unknown 03/18/23 Unknown Labs: Lab Results 03/18/23 03/19/23 Range/Units Unknown 00:40 WBC 9.7 (4.8-10.8) X10*3/uL RBC 4.23 (4.20-5.50) X10*6/uL Hgb 13.1 (12.0-16.0) g/dl Hct 38.6 (37.0-47.0) % MCV 91.3 (80.0-98.0) fL MCH 31.0 (27.0-33.0) pg MCHC 33.9 (31.0-35.0) g/dl RDW 12.4 (11.0-16.0) % Plt Count 275 (160-400) X10*3/uL MPV 10.3 (9.4-12.3) fL Immature Gran % (Auto) 0.3 (0.0-0.4) % Neut % (Auto) 58.3 (45-73) % Lymph % (Auto) 34.0 (20-40) % [place] % (Auto) 5.2 (2-11) % Eos % (Auto) 1.7 (0-4) % Baso % (Auto) 0.5 (0-2) % Lymph # (Auto) 3.3 (1.2-4.9) X10*3/uL [place] # (Auto) 0.5 (0.1-1.2) X10*3/uL Eos # (Auto) 0.2 (0.0-0.4) X10*3/uL Baso # (Auto) 0.1 (0.0-0.2) X10*3/uL Abs Immat Gran (auto) 0.03 (0.00-0.03) X10*3/uL Absolute Neuts (auto) 5.6 (2.0-8.3) x10*3/uL Absolute Nucleated RBC 0.000 (0.0-0.012) X10*3/uL Nucleated RBC % (auto) 0.0 (0.0-0.2) /100WBC Sodium 142 (135-145) mmol/L Potassium 3.5 (3.3-5.1) mmol/L Chloride 110 H (96-108) mmol/L Carbon Dioxide 23 (22-29) mmol/L Anion Gap 13 (12-20) BUN 12 (9-16) mg/dL Creatinine 0.80 (0.5-1.4) mg/dL Estim Creat Clear Calc 101.1 Estimated GFR > 60 Random Glucose 115 (60-115) mg/dL Calcium 9.4 (8.4-10.2) mg/dL Total Bilirubin 0.2 (0.0-1.0) mg/dL AST 21 (5-31) U/L ALT 30 (0-31) U/L Alkaline Phosphatase 114 (39-117) U/L Total Protein 7.2 (6.5-8.0) g/dL Albumin 4.0 (3.5-5.0) g/dL Lipase 25 (8-78) U/L Urine Color Yellow Urine Appearance Clear Urine pH 6.0 (5.0-9.0) Ur Specific [place] >= 1.030 H (1.005-1.025) Urine Protein Negative (Neg-Trace) mg/dL Urine Glucose (UA) Negative (Negative) mg/dL Urine Ketones Trace (Negative) mg/dL Urine Blood Moderate (2+) H (Negative) Urine Nitrite Negative (Negative) Ur Leukocyte Esterase Negative (Negative) Urine RBC >20 H (0-2) /HPF Urine WBC 0-5 (0-5) /HPF Ur Squamous Epith Cells 3-5 (0-2) /HPF Urine Bacteria None Seen (None Seen) Hyaline Casts 0-2 (0-2) /LPF Independent Interpretation I performed an independent interpretation of an: CT Scan Interpretation: I independently reviewed the CT and agree with the rad report Radiology Impression Discussion of test interpretation with radiology: I have reviewed the radiologist's reading. Radiologist Impression: [address] [address] [address] Scan Report Signed Patient: Allyson Betts MR#: [id number] : 1975 Acct:[id number] Age/Sex: 47 / F ADM Date: 03/18/23 Loc: HO.ED Attending Dr: Ordering Physician: Akiko Reyes NP Date of Service: 03/18/23 Procedure(s): CT abdomen pelvis wo IV con Accession Number(s): [id number] cc: Jaya Yousif MD; Akiko Reyes NP~ EXAMINATION: CT ABDOMEN AND PELVIS WITHOUT CONTRAST CLINICAL INFORMATION: Pain. COMPARISON: None available. TECHNIQUE: Multidetector volumetric imaging was performed from the superior aspect of the liver through the pubic symphysis. Sagittal and coronal reformatted images were obtained on the technologist's workstation. This CT examination was performed using dose optimization techniques as appropriate, variously including the following: *Automated exposure control *Adjustment of mA and/or kV according to patient size (this includes techniques or standardized protocols for targeted exams where dose is matched to indication/reason for exam; i.e. extremities or head) *Use of iterative reconstruction technique DLP: 679 mGy-cm FINDINGS: LUNG BASES: The visualized lung bases are unremarkable. LIVER, GALLBLADDER, AND BILIARY TREE: There is a stable 1.6 cm hypodensity right lobe the liver. There is no intrahepatic biliary duct dilatation. There has been a prior cholecystectomy. PANCREAS: Unremarkable. SPLEEN: Unremarkable. ADRENAL GLANDS: Unremarkable. KIDNEYS AND URETERS: The kidneys are normal in size, shape, and attenuation. There is a nonobstructing 5 mm calculus lower pole left kidney. There is no hydronephrosis. BLADDER: Unremarkable. GASTROINTESTINAL TRACT: The small and large bowel are unremarkable. The appendix is unremarkable. ABDOMINAL WALL: No significant hernia is appreciated. LYMPH NODES: Normal. VASCULAR: Unremarkable. PELVIC VISCERA: Unremarkable. OSSEOUS STRUCTURES: Unremarkable. CT/CT abdomen pelvis wo IV con IMPRESSION: Nonobstructing 5 mm calculus lower pole left kidney. Otherwise unremarkable exam. Fleischner guidelines were followed. Independent Historian Clinical information obtained from an independent historian. History obtained from or confirmed by: Friend and Other Medications Administered Discontinued Medications Generic Name Dose Route Start Last Admin Trade Name Freq PRN Reason Stop Dose Admin Sodium Chloride 1,000 mls @ 999 mls/hr 03/18/23 23:27 03/19/23 00:05 Ns IV 03/19/23 00:27 999 mls/hr .Q1H1M STA Administration Ketorolac Tromethamine 15 mg 03/18/23 23:27 03/19/23 00:03 Ketorolac Tromethamine 15 Mg/Ml Vial IVPUSH 03/18/23 23:28 15 mg ONCE ONE Administration Discharge Plan Discharge Clinical Impression: Back pain Patient Disposition: Home, Self-Care Instructions: Back Pain (ED) Additional Instructions: Heat to the area No heavy lifting or bending Follow-up with your primary care doctor for any continued symptoms Return for any worsening symptoms Prescriptions: New ibuprofen 600 mg tablet 600 mg PO Q8H PRN (Reason: pain) Qty: 30 0RF cyclobenzaprine 10 mg tablet 10 mg PO TID PRN (Reason: muscle spasm) Qty: 15 0RF No Action nitrofurantoin macrocrystal [Macrodantin] 100 mg capsule 100 mg PO BID Qty: 14 0RF Rx Instructions: must administer with a meal/food metronidazole 0.75 % (37.5mg/5 gram) gel 1 appful vaginal BID 5 Days Qty: 70 0RF metronidazole 500 mg tablet 500 mg PO BID 7 Days Qty: 14 0RF terconazole 0.8 % cream 1 appful vaginal BEDTIME 3 Days Qty: 20 0RF Referrals: Parth Esposito MD [Physician] - 1 week
[2023-03-18 23:50] LABS: MANUAL DIFF FLAG NO
[2023-03-18 23:51] LABS: Basophils Absolute Auto 0.1 X10*3/uL (0.0-0.2); Basophils Percent Auto 0.5 % (0-2); Eosinophils Absolute Auto 0.2 X10*3/uL (0.0-0.4); Eosinophils Percent Auto 1.7 % (0-4); Hematocrit 38.6 % (37.0-47.0); Hemoglobin 13.1 g/dl (12.0-16.0); Imm Gran Abs Auto 0.03 X10*3/uL (0.00-0.03); Imm Gran Pct Auto 0.3 % (0.0-0.4); Lymphocytes Absolute Auto 3.3 X10*3/uL (1.2-4.9); Mean Corpuscular HGB Conc 33.9 g/dl (31.0-35.0); Mean Corpuscular Volume 91.3 fL (80.0-98.0); Mean Platelet Volume 10.3 fL (9.4-12.3); Monocytes Absolute Auto 0.5 X10*3/uL (0.1-1.2); Monocytes Percent Auto 5.2 % (2-11); Neutrophils Absolute Auto 5.6 x10*3/uL (2.0-8.3); Neutrophils Percent Auto 58.3 % (45-73); Platelet Count 275 X10*3/uL (160-400); Red Blood Count 4.23 X10*6/uL (4.20-5.50); Red Cell Distribution Width 12.4 % (11.0-16.0); White Blood Count 9.7 X10*3/uL (4.8-10.8)
[2023-03-19] MEDS: Ketorolac Tromethamine 15 MG/ML VIAL IVPUSH (00:03)
[2023-03-19 00:04] LABS: Alanine Aminotransferase 30 U/L (0-31); Alkaline Phosphatase 114 U/L (39-117); Anion Gap 13 (12-20); Aspartate Amino Transferase 21 U/L (5-31); Bilirubin Total 0.2 mg/dL (0.0-1.0); Blood Urea Nitrogen 12 mg/dL (9-16); Calcium 9.4 mg/dL (8.4-10.2); Carbon Dioxide 23 mmol/L (22-29); Chloride 110 mmol/L (96-108); Creatinine Clr Calc Pharmacy 101.1; Estimated Glomerular Filt Rate > 60; Glucose Random 115 mg/dL (60-115); Lipase 25 U/L (8-78); Potassium 3.5 mmol/L (3.3-5.1); Sodium 142 mmol/L (135-145); Total Protein 7.2 g/dL (6.5-8.0)
[2023-03-19] MEDS: 0.9 % Sodium Chloride 1,000 ML 999 ML IV (00:05)
[2023-03-19 00:37] VITALS: BP 102/70; PULSE 69; RESP 16; TEMP 36.9; O2SAT 97
--- NOTE | 2023-03-19 00:42 | MHC.EDTECH ---
This pct just assumed care of Pt ,vitals taken ,Patient urine sample collected and sent to lab .
[2023-03-19 00:46] LABS: Appearance Urine Clear; Color Urine Yellow; Glucose Urine UA Negative (Negative); Leukocyte Esterase Urine Negative (Negative); Nitrite Urine Negative (Negative); Specific Gravity - Urine >= 1.030 (1.005-1.025); UMIC TRIGGER UACC YES; Urine Blood Moderate (2+) (Negative); Urine Ketones Trace mg/dL (Negative); Urine Protein Negative (Neg-Trace)
[2023-03-19 01:00] LABS: Bacteria Urine None Seen (None Seen); Hyaline Casts Urine 0-2 /LPF (0-2); RBC Urine >20 /HPF (0-2); WBC Urine 0-5 /HPF (0-5)
--- NOTE | 2023-03-19 01:15 | PC.NURSE ---
PT laying in bed, watching show on cell phone. Reports pain decreased to 7/10. Plan of care onoging.
== END 2023-03-19 01:49 | disposition home or self-care (01) ==
PROVIDERS: Emergency Provider Emergency Medicine; PCP Internal Medicine
DX: M54.50 Low back pain, unspecified (principal); R10.9 Unspecified abdominal pain; F17.210 Nicotine dependence, cigarettes, uncomplicated; Z79.899 Other long term (current) drug therapy; Z87.442 Personal history of urinary calculi
CPT/HCPCS: 36415; 74176; 80053; 81001; 83690; 85025; 96361; 96374; 99284; 99285; J1885

== ENCOUNTER 2023-04-02 14:21 | Outpatient (AMB) | payer OTHER, SELFPAY ==
[2023-04-02 14:22] VITALS: BP 110/72; PULSE 86; O2SAT 97; BMI 32.4
--- NOTE | 2023-04-02 14:22 | A.OFFPC_ITS ---
Vital Signs 04/02/23 14:22 Height 5 ft 7 in Weight 207 lb BMI 32.4 BP 110/72 Blood Pressure Location Lt brachial Position Sitting Pulse 86 Pulse Source Pulse Oximeter Pulse Oximetry (%) 97 Oxygen Delivery Method Room Air Intake [place] Reasons[place] [facility] [place] ABD Pain, New pain gluteal cleft Labor And Delivery Registered Nurse Required: No Casting Room Operator: Not Required per policy Accompanied by: Self / Same As Patient Allergies No Known Allergies Allergy (Mild, Verified 04/02/23 14:22) NOT APPLICABLE Medication List - Last Reconciled 04/03/23 by Jaya Yousif MD cyclobenzaprine 10 mg PO TID PRN ibuprofen 600 mg PO Q8H PRN metronidazole 0.75%(37.5mg/5gram) 1 appful vaginal BID 5 days metronidazole 500 mg PO BID 7 days nitrofurantoin macrocrystal (Macrodantin) 100 mg PO BID terconazole 0.8% 1 appful vaginal BEDTIME 3 days Tobacco use date assessed: 02/23/23 Dental Screening Dental Screen Date: 04/02/23 Did you have a dental visit in the last 12 months?: Yes Did you have a dental problem in the last 6 months where you did not have access to dental care?: No Was dental information given to patient?: Patient has dentist HPI [facility] [place] ABD Pain, New pain gluteal cleft HPI Details low back pain for a few weeks PFSH Medical History Intermittent palpitations Back pain Anemia Surgical History History of endometrial ablation History of cholecystectomy Family History Father No problems noted. Mother Diabetes Hypertension Sister Asthma Family history of thyroid problem Social History Housing: Apartment Alcohol intake: current Alcohol intake frequency: holidays/special occasions only Patient Tobacco Use Status: Current everyday Tobacco user Tobacco use type: Cigarette Cigarette Packs Per Day: 0.5 Cigarettes Per Day: 10 Years Smoked: 20 e-Cigarette/Vaping Use: Never Used Second Hand Smoke Exposure: Yes service: No Current occupational status: employed Cognitive needs: No Hearing needs: No Vision needs: No Female Reproductive History Menstrual Age of Menarche: 11 Questionnaire Thrive Questionnaire Date Thrive assessed: 02/23/23 FRANCOIS-7 AMB Questionnaire FRANCOIS-7 Date FRANCOIS - 7 assessed: 02/23/23 Source: Developed by Drs. Fan Campos, Marva Vaca, Ever Edwards and colleagues, with an educational noemi from [employer]. Review of Systems Const Denies chills, Denies headache(s) and Denies weight loss ENT Denies headache(s) Card Denies chest pain, Denies syncope, Denies irregular heart rhythm and Denies dyspnea Resp Denies chest congestion, Denies cough and Denies dyspnea GI Denies abdominal pain, Denies change in stool character, Denies nausea and Denies vomiting Musc Denies deformity and Denies joint swelling Neuro Denies syncope and Denies headache(s) Physical exam (Primary Care) Vital Signs: Last Vital Signs Pulse 86 04/02/23 14:22 BP 110/72 04/02/23 14:22 Pulse Ox 97 04/02/23 14:22 Oxygen Delivery Method Room Air 04/02/23 14:22 BMI result Body Mass Index 32.4 Tobacco/Smoking Status: Tobacco use Status Tobacco use date assessed 02/23/23 04/02/23 14:26 Patient Tobacco Use Status Current everyday Tobacco 04/02/23 14:26 Tobacco use type Cigarette 04/02/23 14:26 e-Cigarette/Vaping Use Never Used 04/02/23 14:26 Thrive Assessment: Date of Thrive Assessment Date Thrive assessed 02/23/23 04/02/23 14:26 Const General: cooperative, comfortable, no acute distress and alert Neck Neck: Yes no lymphadenopathy Thyroid: Thyroid normal Resp Effort & Inspection: normal respiratory effort Auscultation: clear to auscultation bilaterally Percussion: percussion normal Cardio Jugular venous distension: no JVD Palpation: normal PMI Rate: regular rate Rhythm: regular rhythm Heart sounds: S1 normal heart sound present and S2 normal heart sound present GI Inspection: Yes normal to inspection Palpation (GI): No hepatosplenomegaly present Skin General skin exam: no rashes or lesions noted Extrem General: Yes no clubbing, cyanosis or edema Assessment and Plan Assessment & Plan (1) Low back pain: Code(s): M54.50 - Low back pain, unspecified Plan: xr and pt Orders: Orders XR lumbar spine 2-3V 04/02/23 M54.9 - Dorsalgia, unspecified Coding Level of Care Code Est Pt Level 3 (89089) Diagnoses Low back pain M54.50
== END 2023-04-02 14:38 | disposition home or self-care (01) ==
PROVIDERS: PCP Internal Medicine; Visit Provider Internal Medicine
DX: M54.50 Low back pain, unspecified (principal)
CPT/HCPCS: 99213

== ENCOUNTER 2023-04-02 14:49 | Outpatient (REF) | payer OTHER, SELFPAY ==
--- NOTE | ~2023-04-02 | XR_ITS ---
EXAMINATION: XR LUMBOSACRAL SPINE CLINICAL INFORMATION: Dorsalgia. COMPARISON: Lumbar spine radiographs dated 02/28/2022. TECHNIQUE: AP and lateral views of the lumbar spine and lateral view of the lumbosacral junction. FINDINGS: Vertebral body heights are normal. There is a slight lumbar levoscoliosis. At L2-L3, there is moderate disc space narrowing and a 3 mm retrolisthesis. The remaining disc spaces are well-maintained. No acute fracture or spondylolisthesis is seen. This multi-level lumbar endplate arthropathy. The posterior elements are intact. There is facet arthropathy at L5-S1. The paraspinal soft tissues are normal. There are right upper quadrant surgical clips. XR/XR lumbar spine 2-3V IMPRESSION: 1. There is moderate degenerative disc disease at L2-L3. 2. 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 3. There is facet arthropathy L5-S1. 4. There is a slight lumbar levoscoliosis.
[2023-04-02 17:20] LABS: Appearance Urine Cloudy; Color Urine Dark Yellow; Glucose Urine UA Negative (Negative); Leukocyte Esterase Urine Negative (Negative); Nitrite Urine Negative (Negative); PH 5.5 (5.0-9.0); Specific Gravity - Urine >= 1.030 (1.005-1.025); UMIC TRIGGER UA YES; Urine Blood Moderate (2+) (Negative); Urine Ketones Trace mg/dL (Negative); Urine Protein Trace mg/dL (Neg-Trace)
[2023-04-02 17:52] LABS: Bacteria Urine 3+ (None Seen); Calcium Oxalate Crystals Urine Present; Hyaline Casts Urine 0-2 /LPF (0-2); WBC Urine 0-5 /HPF (0-5)
[2023-04-03 08:02] LABS: Syphilis Screen Nonreactive (Nonreactive)
[2023-04-03 08:26] LABS: HBsAGNum1 0.54 S/CO (0.00-0.99); HIV AB/AG Nonreactive (Nonreactive); HIV Num 1 0.06 S/CO (0.00-0.99); Hepatitis B Surface Antigen Negative (Negative); ~HepC Num1 0.14 S/CO (0.00-0.79); ~Hepatitis C Antibody Nonreactive (Nonreactive)
== END 2023-04-02 14:50 | disposition home or self-care (01) ==
LOC: HO.LAB 14:49
PROVIDERS: Absent Provider Obstetrics & Gynecology; PCP Internal Medicine; Visit Provider Internal Medicine
DX: Z11.4 Encounter for screening for human immunodeficiency virus [HIV] (principal); N76.0 Acute vaginitis; B96.89 Other specified bacterial agents as the cause of diseases classified elsewhere; M54.9 Dorsalgia, unspecified
CPT/HCPCS: 36415; 72100; 81001; 86780; 86803; 87340; 87389

== ENCOUNTER 2023-05-01 16:00 | Outpatient (REF) | payer OTHER, SELFPAY ==
--- NOTE | ~2023-05-01 | US_ITS ---
EXAMINATION: US PELVIS CLINICAL INFORMATION: Pelvic and perineal pain LMP: Irregular, earlier this month COMPARISON: CT scan abdomen and pelvis 03/18/2023, CT scan abdomen and pelvis 02/28/2022, CT scan abdomen and pelvis 06/08/2021, pelvic ultrasound 10/20/2020, pelvic ultrasound 05/05/2020 TECHNIQUE: Ultrasound of the pelvis is performed using both transabdominal and transvaginal transducers along with Doppler. Transvaginal imaging is performed due to inadequate visualization transabdominally. FINDINGS: Uterus: The uterus is anteverted and measures 8.9 x 4.6 x 5.1 cm. No focal fibroid. The endometrial thickness is 0.5 cm. The patient states she had an endometrial ablation. A cystic area is seen adjacent/within the endometrial stripe. Adnexa: Both ovaries are visualized. There is normal color flow to the adnexa. There is no ovarian torsion. There is no pelvic ascites or fluid collection. Right ovary measures 1.5 x 1.1 x 2.0 cm. Volume 1.7 mL. Left ovary measures 3.9 x 2.8 x 2.8 cm. Volume 1.6 mL. 2.9 x 2.0 x 2.2 cm follicle, normal finding is seen. No follow-up imaging is recommended. A 3.0 x 2.0 x 2.0 cm simple cyst is seen within the cul-de-sac. This is not been seen on prior studies. US/US pelvic and transvaginal IMPRESSION: 1. No focal fibroid. 2. The patient states she had an endometrial ablation. A small cystic area is seen adjacent/within the endometrial stripe. 3. Normal ovaries. 4. 3.0 cm simple cyst in the cul-de-sac. This is not been seen on prior studies. Follow-up study in 3 months could be performed.
== END 2023-05-01 16:01 | disposition home or self-care (01) ==
LOC: HO.US 16:00
PROVIDERS: PCP Internal Medicine; Visit Provider Obstetrics & Gynecology
DX: R10.2 Pelvic and perineal pain (principal)
CPT/HCPCS: 76830; 76856

== ENCOUNTER 2023-05-04 11:03 | Outpatient (AMB) | payer OTHER, SELFPAY ==
--- NOTE | 2023-05-04 11:14 | MHC.OFFVIS ---
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 Yousif. She has a past medical history of back pain, anemia, and nephrolithiasis. In discussion with the patient today she reports having seeked emergency room care approximately 6 weeks ago for left-sided flank pain and abdominal pain she had been experiencing. In review of patient's chart it appears CT of the abdomen was ordered and performed. These results were reviewed with the patient today. There is a nonobstructing 5 mm calculus lower pole left kidney. There is no hydronephrosis. The bladder is unremarkable. In discussion with the patient today she reports she continues with intermittent left-sided flank pain. No CVA tenderness noted bilaterally on exam. She otherwise denies any bothersome urinary issues or concerns. She denies urinary urgency, urinary frequency, incontinence, nocturia, hematuria, dysuria, foul smelling urine, changes to urinary stream, fever, and or chills. She is happy with her current voiding parameters. In office urinalysis results reviewed with the patient today. 3+ microscopic hematuria. When asked she does report a longstanding history of nicotine dependence. She reports being a smoker for over 20 years. She smokes approximately half a pack of cigarettes per day. Discussed at length potential causes for microscopic hematuria. Discussed at length surveillance monitoring of nephrolithiasis versus surgical intervention. She does report having had kidney stones in the past however never requiring surgical intervention. She otherwise offers no other issues or concerns at this time. [facility] Medical History Intermittent palpitations Back pain Anemia Surgical History History of endometrial ablation History of cholecystectomy Family History Father No problems noted. Mother Diabetes Hypertension Sister Asthma Family history of thyroid problem Social History Housing: Apartment Alcohol intake: current Alcohol intake frequency: holidays/special occasions only Patient Tobacco Use Status: Current everyday Tobacco user Tobacco use type: Cigarette Cigarette Packs Per Day: 0.5 Cigarettes Per Day: 10 Years Smoked: 20 e-Cigarette/Vaping Use: Never Used Second Hand Smoke Exposure: Yes service: No Current occupational status: employed Cognitive needs: No Hearing needs: No Vision needs: No Female Reproductive History Menstrual Age of Menarche: 11 Review of Systems Const All systems reviewed & are unremarkable except as noted in HPI and below Physical Exam Const General: cooperative, healthy appearing, comfortable, no acute distress, well developed, alert and awake Orientation/consciousness: patient oriented x3 Limitations: no limitations HEENT Head: Yes normal to inspection, Yes normocephalic and Yes atraumatic Ears: hearing grossly normal bilaterally Eyes General: appearance normal, both eyes and all related structures Neck Neck: Yes normal visual inspection and Yes trachea midline Chest Chest palpation & inspection: normal inspection of the chest Resp Effort & Inspection: normal respiratory effort and able to speak in complete sentences Cardio Rate: regular rate GI Inspection: Yes normal to inspection General: Yes no CVA tenderness Back/Spine/Pelvis Back: no CVA tenderness Skin General skin exam: no rashes or lesions noted Neuro General: patient oriented x3 Extrem General: Yes normal to inspection Psych Appearance: grossly normal and well kempt Mental Status: mental status grossly normal Speech and movement: Normal speech and movement present and Clear speech present Affect: normal affect Attitude: cooperative Thought process: Normal thought process present Thought content: Normal thought content present Results AMB Urinalysis, Automated UA Leukoctes 0 Bibiana/uL Last Edit by Rosibel Ospina on 05/04/23 11:51 UA Nitrite Negative Last Edit by Rosibel Ospina on 05/04/23 11:51 UA Urobilinogen 0.2 mg/dL Last Edit by Rosibel Ospina on 05/04/23 11:51 UA Protein 15 mg/dL Last Edit by Rosibel Ospina on 05/04/23 11:51 UA pH 6.0 Last Edit by Rosibel Ospina on 05/04/23 11:51 UA Blood 200 Manjinder/uL Last Edit by Rosibel Ospina on 05/04/23 11:51 UA Specific [place] 1.030 Last Edit by Rosibel Ospina on 05/04/23 11:51 UA Ketone Positive Last Edit by Rosibel Ospina on 05/04/23 11:51 UA Bilirubin 1 mg/dL Last Edit by Rosibel Ospina on 05/04/23 11:51 UA Glucose 0 mg/dL Last Edit by Rosibel Ospina on 05/04/23 11:51 Results Reviewed Results Reviewed: Laboratory Last Values Urine pH (Auto) 6.0 05/04/23 11:15 Specific [place] (Auto) 1.030 05/04/23 11:15 Urine Protein (Auto) 15 mg/dL 05/04/23 11:15 Glucose (UA)(Auto) 0 mg/dL 05/04/23 11:15 Urine Ketones (Auto) Positive 05/04/23 11:15 Urine Blood (Auto) 200 Manjinder/uL 05/04/23 11:15 Urine Nitrite (Auto) Negative 05/04/23 11:15 Urine Bilirubin (Auto) 1 mg/dL 05/04/23 11:15 Urine Urobilinogen (Auto) 0.2 mg/dL 05/04/23 11:15 Leukocyte Esterase (Auto) 0 Bibiana/uL 05/04/23 11:15 Date of Service: 03/18/23 EXAMINATION: CT ABDOMEN AND PELVIS WITHOUT CONTRAST FINDINGS: LUNG BASES: The visualized lung bases are unremarkable. LIVER, GALLBLADDER, AND BILIARY TREE: There is a stable 1.6 cm hypodensity right lobe the liver. There is no intrahepatic biliary duct dilatation. There has been a prior cholecystectomy. PANCREAS: Unremarkable. SPLEEN: Unremarkable. ADRENAL GLANDS: Unremarkable. KIDNEYS AND URETERS: The kidneys are normal in size, shape, and attenuation. There is a nonobstructing 5 mm calculus lower pole left kidney. There is no hydronephrosis. BLADDER: Unremarkable. GASTROINTESTINAL TRACT: The small and large bowel are unremarkable. The appendix is unremarkable. ABDOMINAL WALL: No significant hernia is appreciated. LYMPH NODES: Normal. VASCULAR: Unremarkable. PELVIC VISCERA: Unremarkable. OSSEOUS STRUCTURES: Unremarkable. CT/CT abdomen pelvis wo IV con IMPRESSION: Nonobstructing 5 mm calculus lower pole left kidney. Otherwise unremarkable exam. Fleischner guidelines were followed. Assessment & Plan Assessment & Plan (1) Microscopic hematuria: Code(s): R31.29 - Other microscopic hematuria (2) Nephrolithiasis: Code(s): N20.0 - Calculus of kidney (3) Flank pain: Code(s): R10.9 - Unspecified abdominal pain Plan: Plan Extracorporeal Shock Wave Lithotripsy We discussed the nature of the decision and reasonable alternatives for performing the above surgery. Interventions include chemical dissolution, ESWL, ureteroscopy with laser lithotripsy and stent placement, PCNL. ? Options such as medical therapy were discussed. The relative uncertainties and benefits related to each alternate procedure were adequately discussed. General surgical risks including, but not limited to, pain, bleeding, infection, myocardial infarction, pulmonary embolus, deep vein thrombosis and cerebrovascular accident which may result in further hospitalization were discussed.? Full disclosure of the procedure as well as all major risks, benefits and complications were discussed including but not limited to risks of bleeding, injury to the kidney with hematoma or lori-hematoma, failure to fragments stone, potential for ureteric obstruction from stone passage and need for secondary procedures.? There is a small long-term risk of hypertension and a question edu of diabetes.? Success rate of fragmentation and passage is approximately 70- 75%.? This is compared to the risks and benefits for ureteroscopy which has a higher success rate but is a more invasive procedure. The success rate of the procedure was discussed. Success of the procedure in the short-term does not necessarily guarantee that long-term success will be maintained. Suitable follow up will need to be maintained. The patient showed understanding of the discussion as well as the typical recovery time, and the outpatient nature of this procedure. Opportunity was given for questions. Repeat-back protocol used to confirm understanding. They wish to proceed with Left ESWL Plan In office urinalysis results reviewed with the patient today; as noted above; will send for urine cytology. Recent CT results reviewed with the patient today; as noted above. Discussed at length potential causes of nephrolithiasis. Discussed further intervention with surveillance monitoring verses lithotripsy; discussed risks and benefits of these interventions at length. Discussed at length potential causes of microscopic hematuria; discussed further workup with cytology and in office cystoscopy versus surveillance monitoring; discussed risks and benefits of these interventions at length Discussed, educated, stressed the importance of drinking plenty of water daily. Discussed further metabolic workup with 24 hour urine collection and labs Will schedule for left-sided ESWL Follow-up per doctor's orders; or sooner with any issues, concerns, and or questions. Orders: Orders Urine Cytology 05/04/23 R31.29 - Other microscopic hematuria AMB Urinalysis Automated 05/04/23 Z13.9 - Encounter for screening, unspecified Patient Instructions: The patient had an opportunity to ask questions regarding the treatment plan. All questions were answered. Physical exam, labs, and imaging were discussed and reviewed in detail. As well as risks, benefits, and discussion of treatment choices. No major barriers to understanding were identified. The patient expressed understanding and agreement with the above treatment plan. The patient was made aware they should contact our office by phone for worsening of their current condition, the appearance of new symptoms, or with any questions or concerns. Compliance is encouraged with any medications and follow up testing that is ordered. It is a privilege to be allowed the opportunity to participate in? your urological care.? Again, if you have any questions or concerns If you have any questions or concerns please do not hesitate to contact me. The office is [phone]. This note is constructed using voice recognition software. While every effort has been made to ensure accuracy information systems supervisor errors may have been included. Yours sincerely, BRYANNA Hernandez Coding Level of Care Code New Pt Level 4 (57154) Diagnoses Microscopic hematuria R31.29 Nephrolithiasis N20.0 Flank pain R10.9
== END 2023-05-04 11:59 | disposition home or self-care (01) ==
PROVIDERS: PCP Internal Medicine; Visit Provider Nurse Practitioner Family
DX: Z13.9 Encounter for screening, unspecified (principal)
CPT/HCPCS: 99204

== ENCOUNTER 2023-05-04 11:03 | Outpatient (REF) | payer OTHER, SELFPAY ==
[2023-05-04 18:54] LABS: Urine Cytology See Pathology rpt
== END 2023-05-04 11:04 | disposition home or self-care (01) ==
LOC: HO.LNP 11:03
PROVIDERS: PCP Internal Medicine; Visit Provider Nurse Practitioner Family
DX: R31.29 Other microscopic hematuria (principal); N20.0 Calculus of kidney; R10.9 Unspecified abdominal pain; F17.210 Nicotine dependence, cigarettes, uncomplicated; Z79.899 Other long term (current) drug therapy
CPT/HCPCS: 81003; 88112; 99202

== ENCOUNTER 2023-06-06 09:40 | Outpatient (AMB) | payer OTHER, SELFPAY ==
--- NOTE | 2023-06-06 09:41 | A.OFFVIS_ITS ---
Intake Visit Reasons: H&P ESWL Intake Note: Patient is Present for Telephone Follow Up For H&P Urology Med: None Antibiotic Allergy:None Blood Thinner:None Allergies No Known Allergies Allergy (Mild, Verified 05/05/23 11:06) NOT APPLICABLE HPI Comments Details: Shyann is a pleasant female. She is a patient of Dr. Yousif. She is seen for the following urologic conditions - nephrolithiasis Telemedicine Evaluation 15 min Consultation DoximLingt Marlene Video Evaluated with a [facility] urology nurse practitioner Recommendation ESWL left side Link to information regarding ESWL provided to patient Nephrolithiasis Imaging - CT there is a nonobstructing 5 mm calculus lower pole left kidney PFSH Medical History Intermittent palpitations Back pain Anemia Surgical History History of endometrial ablation History of cholecystectomy Family History Father No problems noted. Mother Diabetes Hypertension Sister Asthma Family history of thyroid problem Social History Housing: Apartment Alcohol intake: current Alcohol intake frequency: holidays/special occasions only Patient Tobacco Use Status: Current everyday Tobacco user Tobacco use type: Cigarette Cigarette Packs Per Day: 0.5 Cigarettes Per Day: 10 Years Smoked: 20 e-Cigarette/Vaping Use: Never Used Second Hand Smoke Exposure: Yes service: No Current occupational status: employed Cognitive needs: No Hearing needs: No Vision needs: No Female Reproductive History Menstrual Age of Menarche: 11 Review of Systems Const All systems reviewed & are unremarkable except as noted in HPI and below Reports no additional complaints Resp Reports no additional complaints GI Reports no additional complaints Reports as per HPI Musc Reports no additional complaints Physical Exam Telemedicine evaluation Appropriate responses Regular breathing rate and rhythm HEENT Head: Yes normal to inspection Ears: hearing grossly normal bilaterally Eyes General: appearance normal, both eyes and all related structures Neck Neck: Yes normal visual inspection Chest Chest palpation & inspection: normal inspection of the chest Resp Effort & Inspection: normal respiratory effort and able to speak in complete sentences Telehealth Telehealth Telehealth Platform: [employer] Location of provider rendering services: practice address Location of patient: address on file Patient Identification confirmed using: Name, : Yes Telehealth method: video Patient verbally consented to treatment: Yes Patient verbally consented to billing insurance company: Yes Patient informed of any privacy concerns related to visit: Yes Minutes spent on Phone/Video with Pt.: 15 Assessment & Plan Assessment & Plan (1) Nephrolithiasis: Code(s): N20.0 - Calculus of kidney Category: Medical Plan Extracorporeal Shock Wave Lithotripsy We discussed the nature of the decision and reasonable alternatives for performing the above surgery. Interventions include chemical dissolution, ESWL, ureteroscopy with laser lithotripsy and stent placement, PCNL. Options such as medical therapy were discussed. The relative uncertainties and benefits related to each alternate procedure were adequately discussed. General surgical risks including, but not limited to, pain, bleeding, infection, myocardial infarction, pulmonary embolus, deep vein thrombosis and cerebrovascular accident which may result in further hospitalization were discussed. Full disclosure of the procedure as well as all major risks, benefits and complications were discussed including but not limited to risks of bleeding, injury to the kidney with hematoma or lori-hematoma, failure to fragments stone, potential for ureteric obstruction from stone passage and need for secondary procedures. There is a small long-term risk of hypertension and a question edu of diabetes. Success rate of fragmentation and passage is approximately 70- 75%. This is compared to the risks and benefits for ureteroscopy which has a higher success rate but is a more invasive procedure. The success rate of the procedure was discussed. Success of the procedure in the short-term does not necessarily guarantee that long-term success will be maintained. Suitable follow up will need to be maintained. The patient showed understanding of the discussion as well as the typical recovery time, and the outpatient nature of this procedure. Opportunity was given for questions. Re peat-back protocol used to confirm understanding. They wish to proceed with left ESWL Patient Instructions: Imaging studies, laboratory and physical exam results were discussed and reviewed in detail. No major barriers to patient understanding were identified. An opportunity to ask questions regarding the treatment plan was provided. All questions were answered. The patient expressed understanding and agreement with the above treatment plan. The patient is aware they should contact our office by phone for worsening of their current condition or the appearance of new urologic symptoms. Compliance is encouraged with any medications and followup testing that is ordered. It is a privilege to participate in the urologic care of your patient. If you have any questions or concerns regarding treatment for the above conditions, or other urologic issues, please do not hesitate to contact me. The office telephone contact is [phone]. This note is constructed using voice recognition software. While every effort has been made to ensure accuracy diagnostic medical sonographer errors may have been included. Yours sincerely, Dr Armando Barrios MD, [facility] - Urology Providers of Expert, Compassionate Care for the Genitourinary System Coding Level of Care Code Tele Est Pt Level 3 (08627) Diagnoses Nephrolithiasis N20.0
== END 2023-06-06 10:08 | disposition home or self-care (01) ==
LOC: HO.HUSH 09:40
PROVIDERS: PCP Internal Medicine; Visit Provider Urology
DX: N20.0 Calculus of kidney (principal)
CPT/HCPCS: 99213

== ENCOUNTER → 2023-06-06 09:40 | Outpatient (BNVA) | payer OTHER, SELFPAY | PROVIDERS: PCP Internal Medicine; Visit Provider Urology ==

== ENCOUNTER 2023-06-29 12:06 | Emergency (ER) | payer OTHER, SELFPAY ==
--- NOTE | ~2023-06-29 | CT_ITS ---
EXAMINATION: CT ABDOMEN AND PELVIS WITHOUT CONTRAST CLINICAL INFORMATION: Back pain and history of nephrolithiasis. COMPARISON: 03/18/2023, 08/26/2013 and 12/16/2009 TECHNIQUE: Multidetector volumetric imaging was performed from the superior aspect of the liver through the pubic symphysis. Sagittal and coronal reformatted images were obtained on the technologist's workstation. This CT examination was performed using dose optimization techniques as appropriate, variously including the following: *Automated exposure control *Adjustment of mA and/or kV according to patient size (this includes techniques or standardized protocols for targeted exams where dose is matched to indication/reason for exam; i.e. extremities or head) *Use of iterative reconstruction technique DLP: 701 mGy-cm FINDINGS: LUNG BASES: No pleural or pericardial effusion. LIVER, GALLBLADDER, AND BILIARY TREE: The noncontrast liver is normal in size and contour. 6 mm hypodensity at the hepatic dome. This lesion was less conspicuous but likely present on prior imaging. 1.5 cm right hepatic hypodensity. 1.3 cm subcapsular hypodensity in the inferior liver. These latter lesions are stable in number previously characterized as hemangiomas by MRI on 12/16/2009. No biliary ductal dilatation is present. The gallbladder is surgically absent. PANCREAS: No ductal dilatation. SPLEEN: Not enlarged. ADRENAL GLANDS: No adrenal mass. KIDNEYS AND URETERS: The kidneys are symmetric in size. No right renal calculus. 4 mm nonobstructing calculus lower pole left kidney. Punctate nonobstructing calculus lower pole left kidney. No hydronephrosis or perinephric fluid collection. BLADDER: Unremarkable. GASTROINTESTINAL TRACT: Small and large bowel loops are of normal caliber. No small bowel obstruction. Appendix is within normal limits. ABDOMINAL WALL: No significant hernia is appreciated. LYMPH NODES: No bulky lymphadenopathy. VASCULAR: Normal caliber abdominal aorta. PELVIC VISCERA: Unremarkable. OSSEOUS STRUCTURES: No destructive bone lesions. CT/CT abdomen pelvis wo IV con IMPRESSION: Nonobstructing left renal calculi. No hydronephrosis.
[2023-06-29 12:11] VITALS: BP 122/82; PULSE 77; RESP 20; TEMP 35.9; O2SAT 98; BMI 32.2
--- NOTE | 2023-06-29 12:13 | ED_ITS ---
HPI - General Adult General Chief complaint: Back Pain/Injury Stated complaint: lower back pain radiating to the front & down legs Time Seen by Provider: 06/29/23 19:50 Source: patient and RN notes reviewed History of Present Illness HPI narrative: 48-year-old female with history of hypertension, status post cholecystectomy, renal colic, nephrolithiasis, chronic abdominal pain, presents for evaluation of acute onset of low back pain. Patient states she was walking in her house when she had sudden onset of low back pain. She reports it as pain, spasming. It is worse with movement. She has not tried any medication for this. She has had history of similar symptoms in the past. She denies any paresthesias or paralysis. No bowel or bladder incontinence. No direct trauma. She denies any falls. Patient is otherwise feeling well. Related Data Previous Rx's ?Medication ?Instructions ?Recorded lidocaine 5 % topical patch 1 patch topical DAILY #15 ea 06/29/23 (Lidoderm) methocarbamol 750 mg tablet 750 mg PO TID PRN muscle spasm #20 06/29/23 tabs Allergies Allergy/AdvReac Type Severity Reaction Status Date / Time No Known Allergies Allergy Mild NOT Verified 06/29/23 12:17 APPLICABLE Review of Systems 2 Constitutional: Constitutional: Denies chills and Denies fever(s) Cardiovascular: Cardiovascular: Denies chest pain, Denies dyspnea, Denies dyspnea on exertion and Denies orthopnea Respiratory: Respiratory: Denies cough, Denies dyspnea and Denies dyspnea on exertion Gastrointestinal: Gastrointestinal: Denies abdominal pain, Denies melena, Denies hematochezia, Denies diarrhea, Denies nausea and Denies vomiting Genitourinary: Genitourinary: Denies dysuria and Denies urinary urgency Musculoskeletal: Musculoskeletal: Reports back pain, Denies muscle weakness, Denies numbness, Denies stiffness and Denies tingling Integumentary/Breasts: Skin/Breast: Denies rash Neurologic: Denies focal weakness, Denies numbness and Denies tingling Psychiatric: Psychiatric: Denies depression [facility] Past Medical History Attestation statement: The following information was validated with the patient. Medical History Intermittent palpitations Back pain Anemia Surgical History History of endometrial ablation History of cholecystectomy Family History Family History Father No problems noted. Mother Diabetes Hypertension Sister Asthma Family history of thyroid problem Social History Social History Housing: Apartment Alcohol intake: current Alcohol intake frequency: holidays/special occasions only Patient Tobacco Use Status: Current everyday Tobacco user Tobacco use type: Cigarette Cigarette Packs Per Day: 0.5 Cigarettes Per Day: 10 Years Smoked: 20 e-Cigarette/Vaping Use: Never Used Second Hand Smoke Exposure: Yes Advance Directives: No Advance Directives on File: No service: No Current occupational status: employed Cognitive needs: No Hearing needs: No Vision needs: No Physical Exam ED Vital Signs: Vital Signs - 24 hr 06/29/23 12:11 Temperature 96.6 F L Pulse Rate 77 Respiratory Rate 20 Blood Pressure 122/82 Pulse Oximetry 98 Oxygen Delivery Method Room Air BMI result Body Mass Index 32.2 Const General: cooperative, no acute distress, alert and awake Resp Auscultation: clear to auscultation bilaterally Cardio Rate: regular rate Rhythm: regular rhythm GI Other: Abdomen is soft and nontender. There is no peritoneal signs. No CVAT. Back/Spine/Pelvis Other: Sld Educational Aide is 5/5 bilaterally. Full range of motion of all joints. Able to straight leg raise equal bilaterally. There is no sciatic notch tenderness. Diffuse tenderness along the lumbar muscle region that is worse with twisting. There is mild spasming in this area. Psych Affect: normal affect Attitude: cooperative Course Course Course Narrative: This is an RME: Additional HPI, ROS, PE not included below will be deferred to primary provider. RME assessment and note performed by: Doris Cox PA-C This is a [id number], with a history of kidney stones, who presents emergency department with complaints of severe back pain that radiates down into her bilateral flanks and into her legs. She states that she has had back pain however states that about 2 hours ago this worsened significantly. She endorses nausea as well as dizziness, otherwise denies any vomiting, or urinary symptoms. She was supposed to have a lithotripsy in 2 weeks. Plan: Labs, UA, CT Medical Decision Making Medical Decision Making MDM Narrative: 48-year-old female with a history of nephrolithiasis, hypertension, presents with acute onset of low back muscle strain. Suspect musculoskeletal in nature given her symptoms. She has not having any infectious, no urinary, and no renal colic like symptoms at this time. CT negative for any acute process. Will treat symptomatically for muscle strain. The patient is in agreement to this plan. No further questions at this time. Differential Diagnosis Differential Diagnoses: The differential diagnosis associated with the presentation includes Disc herniation Nephrolithiasis Muscle spasm Muscle strain Disc fracture Lab Data [facility] Lab Attestation statement: I reviewed the patient's lab results. 06/29/23 12:35 06/29/23 12:35 Labs: Lab Results 06/29/23 Range/Units 12:35 WBC 7.2 (4.8-10.8) X10*3/uL RBC 4.58 (4.20-5.50) X10*6/uL Hgb 14.2 (12.0-16.0) g/dl Hct 42.5 (37.0-47.0) % MCV 92.8 (80.0-98.0) fL MCH 31.0 (27.0-33.0) pg MCHC 33.4 (31.0-35.0) g/dl RDW 12.8 (11.0-16.0) % Plt Count 278 (160-400) X10*3/uL MPV 10.4 (9.4-12.3) fL Immature Gran % (Auto) 0.3 (0.0-0.4) % Neut % (Auto) 70.1 (45-73) % Lymph % (Auto) 23.3 (20-40) % [place] % (Auto) 4.6 (2-11) % Eos % (Auto) 1.1 (0-4) % Baso % (Auto) 0.6 (0-2) % Lymph # (Auto) 1.7 (1.2-4.9) X10*3/uL [place] # (Auto) 0.3 (0.1-1.2) X10*3/uL Eos # (Auto) 0.1 (0.0-0.4) X10*3/uL Baso # (Auto) 0.0 (0.0-0.2) X10*3/uL Abs Immat Gran (auto) 0.02 (0.00-0.03) X10*3/uL Absolute Neuts (auto) 5.1 (2.0-8.3) x10*3/uL Absolute Nucleated RBC 0.000 (0.0-0.012) X10*3/uL Nucleated RBC % (auto) 0.0 (0.0-0.2) /100WBC Sodium 142 (135-145) mmol/L Potassium 4.4 D (3.3-5.1) mmol/L Chloride 109 H (96-108) mmol/L Carbon Dioxide 26 (22-29) mmol/L Anion Gap 11 L (12-20) BUN 8 L (9-16) mg/dL Creatinine 0.88 (0.5-1.4) mg/dL Estim Creat Clear Calc 89.7 Estimated GFR > 60 Random Glucose 129 H (60-115) mg/dL Calcium 9.5 (8.4-10.2) mg/dL Total Bilirubin 0.6 (0.0-1.0) mg/dL Direct Bilirubin 0.2 (0.0-0.5) mg/dL AST 15 (5-31) U/L ALT 17 (0-31) U/L Alkaline Phosphatase 91 (39-117) U/L Total Protein 7.3 (6.5-8.0) g/dL Albumin 4.2 (3.5-5.0) g/dL Beta HCG, Quant < 2 mIU/mL Radiology Impression Discussion of test interpretation with radiology: I have reviewed the radiologist's reading. Radiologist Impression: [place] [id number] CT Scan Report Signed Patient: Allyson Betts MR#: [id number] : 1975 Acct:[id number] Age/Sex: 48 / F ADM Date: 06/29/23 Loc: HO.ED Attending Dr: Ordering Physician: Doris Cox Date of Service: 06/29/23 Procedure(s): CT abdomen pelvis wo IV con Accession Number(s): [id number] cc: Doris Cox; Jaya Yousif MD~ EXAMINATION: CT ABDOMEN AND PELVIS WITHOUT CONTRAST CLINICAL INFORMATION: Back pain and history of nephrolithiasis. COMPARISON: 03/18/2023, 08/26/2013 and 12/16/2009 TECHNIQUE: Multidetector volumetric imaging was performed from the superior aspect of the liver through the pubic symphysis. Sagittal and coronal reformatted images were obtained on the technologist's workstation. This CT examination was performed using dose optimization techniques as appropriate, variously including the following: *Automated exposure control *Adjustment of mA and/or kV according to patient size (this includes techniques or standardized protocols for targeted exams where dose is matched to indication/reason for exam; i.e. extremities or head) *Use of iterative reconstruction technique DLP: 701 mGy-cm FINDINGS: LUNG BASES: No pleural or pericardial effusion. LIVER, GALLBLADDER, AND BILIARY TREE: The noncontrast liver is normal in size and contour. 6 mm hypodensity at the hepatic dome. This lesion was less conspicuous but likely present on prior imaging. 1.5 cm right hepatic hypodensity. 1.3 cm subcapsular hypodensity in the inferior liver. These latter lesions are stable in number previously characterized as hemangiomas by MRI on 12/16/2009. No biliary ductal dilatation is present. The gallbladder is surgically absent. PANCREAS: No ductal dilatation. SPLEEN: Not enlarged. ADRENAL GLANDS: No adrenal mass. KIDNEYS AND URETERS: The kidneys are symmetric in size. No right renal calculus. 4 mm nonobstructing calculus lower pole left kidney. Punctate nonobstructing calculus lower pole left kidney. No hydronephrosis or perinephric fluid collection. BLADDER: Unremarkable. GASTROINTESTINAL TRACT: Small and large bowel loops are of normal caliber. No small bowel obstruction. Appendix is within normal limits. ABDOMINAL WALL: No significant hernia is appreciated. LYMPH NODES: No bulky lymphadenopathy. VASCULAR: Normal caliber abdominal aorta. PELVIC VISCERA: Unremarkable. OSSEOUS STRUCTURES: No destructive bone lesions. CT/CT abdomen pelvis wo IV con IMPRESSION: Nonobstructing left renal calculi. No hydronephrosis. Dictated By: Oli Fierro MD Signed By: <Electronically signed by Oli Fierro MD in OV> 06/29/23 1543 DD/ 1411 TD/TT: Land Commissioner: Independent Historian Clinical information obtained from an independent historian. History obtained from or confirmed by: Other Family member Prescription Management I considered prescription management with: Pain Medication Chronic Conditions Patient?s care impacted by: Hypertension Discharge Plan Discharge Clinical Impression: Lumbar strain Qualifiers: Encounter type: initial encounter Qualified Code(s): S39.012A - Strain of muscle, fascia and tendon of lower back, initial encounter Patient Disposition: Home, Self-Care Instructions: Muscle Strain (ED), Acute Low Back Pain (ED), Lower Back Exercises (ED) Additional Instructions: Rest. Avoid strenuous activity. Warm Compresses. Robaxin as directed for pain and muscle spasm. Do not drive, operate machinery or drink alcohol while taking this medication as it may make you drowsy. Lidoderm patches to the affected area. Follow-up with your primary care provider. Call this week to schedule a follow- up appointment. Return to the emergency department if you have any worsening of symptoms, or any concerns. Get well soon! Prescriptions: New methocarbamol 750 mg tablet 750 mg PO TID PRN (Reason: muscle spasm) Qty: 20 0RF lidocaine [Lidoderm] 5 % adhesive patch,medicated 1 patch topical DAILY Qty: 15 0RF Rx Instructions: leave on most painful area for up to 12 hrs Discontinued ibuprofen 600 mg tablet 600 mg PO Q8H PRN (Reason: pain) Qty: 30 0RF cyclobenzaprine 10 mg tablet 10 mg PO TID PRN (Reason: muscle spasm) Qty: 15 0RF Print Language: Japanese
[2023-06-29 12:39] LABS: MANUAL DIFF FLAG NO
[2023-06-29 12:43] LABS: Basophils Percent Auto 0.6 % (0-2); Eosinophils Absolute Auto 0.1 X10*3/uL (0.0-0.4); Eosinophils Percent Auto 1.1 % (0-4); Hematocrit 42.5 % (37.0-47.0); Hemoglobin 14.2 g/dl (12.0-16.0); Imm Gran Abs Auto 0.02 X10*3/uL (0.00-0.03); Imm Gran Pct Auto 0.3 % (0.0-0.4); Lymphocytes Absolute Auto 1.7 X10*3/uL (1.2-4.9); Lymphocytes Percent Auto 23.3 % (20-40); Mean Corpuscular HGB Conc 33.4 g/dl (31.0-35.0); Mean Corpuscular Volume 92.8 fL (80.0-98.0); Mean Platelet Volume 10.4 fL (9.4-12.3); Monocytes Absolute Auto 0.3 X10*3/uL (0.1-1.2); Monocytes Percent Auto 4.6 % (2-11); Neutrophils Absolute Auto 5.1 x10*3/uL (2.0-8.3); Neutrophils Percent Auto 70.1 % (45-73); Platelet Count 278 X10*3/uL (160-400); Red Blood Count 4.58 X10*6/uL (4.20-5.50); Red Cell Distribution Width 12.8 % (11.0-16.0); White Blood Count 7.2 X10*3/uL (4.8-10.8)
[2023-06-29 13:04] LABS: Alanine Aminotransferase 17 U/L (0-31); Albumin Level 4.2 g/dL (3.5-5.0); Alkaline Phosphatase 91 U/L (39-117); Anion Gap 11 (12-20); Aspartate Amino Transferase 15 U/L (5-31); Bilirubin Direct 0.2 mg/dL (0.0-0.5); Bilirubin Total 0.6 mg/dL (0.0-1.0); Blood Urea Nitrogen 8 mg/dL (9-16); Calcium 9.5 mg/dL (8.4-10.2); Carbon Dioxide 26 mmol/L (22-29); Chloride 109 mmol/L (96-108); Creatinine Clr Calc Pharmacy 89.7; Estimated Glomerular Filt Rate > 60; Glucose Random 129 mg/dL (60-115); Potassium 4.4 mmol/L (3.3-5.1); Sodium 142 mmol/L (135-145); Total Protein 7.3 g/dL (6.5-8.0)
[2023-06-29 13:15] LABS: HCG Quantitative < 2 mIU/mL
[2023-06-29] MEDS: Ketorolac Tromethamine 30 MG/ML VIAL IM (20:24)
[2023-06-29 20:27] VITALS: BP 118/62; PULSE 72; RESP 16; TEMP 36.6; O2SAT 98
== END 2023-06-29 20:28 | disposition home or self-care (01) ==
PROVIDERS: Physician Assistant Medical; Emergency Provider Emergency Medicine; PCP Internal Medicine
DX: S39.012A Strain of muscle, fascia and tendon of lower back, initial encounter (principal); X58.XXXA Exposure to other specified factors, initial encounter; Y93.9 Activity, unspecified; Y92.9 Unspecified place or not applicable; Y99.9 Unspecified external cause status; I10 Essential (primary) hypertension
CPT/HCPCS: 36415; 74176; 80048; 80076; 84702; 85025; 96372; 99283; 99284; J1885

== ENCOUNTER 2023-07-05 15:48 | Emergency (ER) | payer OTHER, SELFPAY ==
--- NOTE | ~2023-07-05 | US_ITS ---
EXAMINATION: US PELVIS CLINICAL INFORMATION: Lower abdominal pain COMPARISON: 05/01/2023 TECHNIQUE: Ultrasound of the pelvis is performed using both transabdominal and transvaginal transducers along with Doppler. Transvaginal imaging is performed due to inadequate visualization transabdominally. FINDINGS: Uterus measures 8.3 x 4.6 x 4.6 cm. Endometrial stripe is not adequately delineated. There are 3 anechoic regions within the uterus, measuring up to 0.8 cm, 1.0 cm, and 0.3 cm in maximal dimension. The right ovary measures 2.7 x 2.6 x 1.9 cm, and the left ovary measures 1.7 x 2.4 x 2.4 cm. Small cysts in the bilateral ovaries favor functional cysts/follicles; no follow-up recommended. Doppler evaluation demonstrates arterial and venous waveforms in both ovaries. No free fluid is seen. US/US pelvic and transvaginal IMPRESSION: 1. No findings to suggest ovarian torsion. 2. Three small anechoic regions within the uterus, measuring up to 1.0 cm, which may be related to the reported history of endometrial ablation. Endometrial stripe is not adequately delineated.
--- NOTE | ~2023-07-05 | XR_ITS ---
EXAMINATION: XR HIP, RIGHT CLINICAL INFORMATION: Pain COMPARISON: CT 06/29/2023 TECHNIQUE: Two views of the right hip. AP pelvis. FINDINGS: Alignment across the hips is anatomic. Joint spaces are relatively well-maintained. No acute fracture is seen. Sacroiliac joints and pubic symphysis appear intact. XR/XR hip RT min 2V IMPRESSION: No acute findings identified.
--- NOTE | ~2023-07-05 | US_ITS ---
EXAMINATION: US PELVIS CLINICAL INFORMATION: Lower abdominal pain COMPARISON: 05/01/2023 TECHNIQUE: Ultrasound of the pelvis is performed using both transabdominal and transvaginal transducers along with Doppler. Transvaginal imaging is performed due to inadequate visualization transabdominally. FINDINGS: Uterus measures 8.3 x 4.6 x 4.6 cm. Endometrial stripe is not adequately delineated. There are 3 anechoic regions within the uterus, measuring up to 0.8 cm, 1.0 cm, and 0.3 cm in maximal dimension. The right ovary measures 2.7 x 2.6 x 1.9 cm, and the left ovary measures 1.7 x 2.4 x 2.4 cm. Small cysts in the bilateral ovaries favor functional cysts/follicles; no follow-up recommended. Doppler evaluation demonstrates arterial and venous waveforms in both ovaries. No free fluid is seen. US/US pelvic ovarian doppler IMPRESSION: 1. No findings to suggest ovarian torsion. 2. Three small anechoic regions within the uterus, measuring up to 1.0 cm, which may be related to the reported history of endometrial ablation. Endometrial stripe is not adequately delineated.
[2023-07-05 16:07] VITALS: BP 118/89; PULSE 89; RESP 16; TEMP 36.8; O2SAT 97; BMI 31.7
--- NOTE | 2023-07-05 16:07 | ED_ITS ---
HPI - General Adult General Chief complaint: Abdominal Pain Stated complaint: right side back and abd pain Time Seen by Provider: 07/05/23 21:41 Related Data Previous Rx's ?Medication ?Instructions ?Recorded lidocaine 5 % topical patch 1 patch topical DAILY #15 ea 06/29/23 (Lidoderm) methocarbamol 750 mg tablet 750 mg PO TID PRN muscle spasm #20 06/29/23 tabs lidocaine 5 % topical patch 1 patch topical DAILY #15 ea 07/06/23 (Lidoderm) Allergies Allergy/AdvReac Type Severity Reaction Status Date / Time No Known Allergies Allergy Mild NOT Verified 07/05/23 16:10 APPLICABLE FOR[facility]LY [facility] Past Medical History Medical History Intermittent palpitations Back pain Anemia Surgical History History of endometrial ablation History of cholecystectomy Family History Family History Father No problems noted. Mother Diabetes Hypertension Sister Asthma Family history of thyroid problem Social History Social History Housing: Apartment Alcohol intake: current Alcohol intake frequency: holidays/special occasions only Alcohol type: beer Patient Tobacco Use Status: Current everyday Tobacco user Tobacco use type: Cigarette Cigarette Packs Per Day: 0.5 Cigarettes Per Day: 10 Years Smoked: 20 Smoked in Last 30 Days: Yes e-Cigarette/Vaping Use: Never Used Second Hand Smoke Exposure: Yes Use of substances other than those prescribed or required for medical reasons: No Advance Directives: No Advance Directives Information Provided: No Do you have a plan to hurt others: No Plan Patient : No service: No Current occupational status: employed Cognitive needs: No Hearing needs: No Vision needs: No Physical Exam ED Vital Signs: Vital Signs - 24 hr 07/05/23 16:07 07/05/23 22:06 Temperature 98.3 F 98.2 F Pulse Rate 89 87 Respiratory Rate 16 16 Blood Pressure 118/89 120/86 Pulse Oximetry 97 98 Oxygen Delivery Method Room Air Room Air BMI result Body Mass Index 31.7 Course Course Course Narrative: This is an RME done by RUSSEL Miles: Additional HPI, ROS, PE not included below will be deferred to primary provider. This is an RME done by RUSSEL Miles: Additional HPI, ROS, PE not included below will be deferred to primary provider. 48 year old female pmh of vulvovaginitis, nephrolithiasis, endometriosis, BV, anemia, presents with right sided back and abdominal pain beginning Sunday morning which has worsened. States I think I have an infection, I feel like my body is shutting down . Pt states urinary symptoms (dysuria) as well as a white discharge. States she has a kidney stone on the left and she received a CT sunday. Also states she has had nausea. Appearance: Alert.? Oriented X3.? No acute cardiopulmonary distress distress.? Head: Normocephalic, atraumatic, no step-offs or deformities CVS: Pulses normal.? Respiratory: No respiratory distress.? Abdomen: Soft and tender to palpation on right side and suprapubic area. Skin: ? Normal skin color. Extremities: 5/5 strength to bilateral upper and lower extremities Back: No midline tenderness, no C-spine tenderness, full range of motion, No CVA tenderness bilaterally Neuro: Oriented X 3.? No motor deficit.? No sensory deficit. Medications Administered Discontinued Medications Generic Name Dose Route Start Last Admin Trade Name Freq PRN Reason Stop Dose Admin Ibuprofen 400 mg 07/06/23 01:55 07/06/23 02:29 Ibuprofen 400 Mg Tablet PO 07/06/23 01:56 Not Given ONCE ONE Ketorolac Tromethamine 30 mg 07/06/23 02:15 07/06/23 02:28 Ketorolac Tromethamine 30 Mg/Ml Vial IM 07/06/23 02:16 30 mg ONCE ONE Administration Medical Decision Making Lab Data 07/05/23 16:20 07/05/23 16:20 Labs: Lab Results 07/05/23 07/05/23 07/06/23 Range/Units 16:20 16:27 01:19 WBC 7.4 (4.8-10.8) X10*3/uL RBC 4.67 (4.20-5.50) X10*6/uL Hgb 14.4 (12.0-16.0) g/dl Hct 43.0 (37.0-47.0) % MCV 92.1 (80.0-98.0) fL MCH 30.8 (27.0-33.0) pg MCHC 33.5 (31.0-35.0) g/dl RDW 12.6 (11.0-16.0) % Plt Count 264 (160-400) X10*3/uL MPV 10.4 (9.4-12.3) fL Immature Gran % (Auto) 0.3 (0.0-0.4) % Neut % (Auto) 71.0 (45-73) % Lymph % (Auto) 22.6 (20-40) % [place] % (Auto) 4.7 (2-11) % Eos % (Auto) 0.9 (0-4) % Baso % (Auto) 0.5 (0-2) % Lymph # (Auto) 1.7 (1.2-4.9) X10*3/uL [place] # (Auto) 0.4 (0.1-1.2) X10*3/uL Eos # (Auto) 0.1 (0.0-0.4) X10*3/uL Baso # (Auto) 0.0 (0.0-0.2) X10*3/uL Abs Immat Gran (auto) 0.02 (0.00-0.03) X10*3/uL Absolute Neuts (auto) 5.3 (2.0-8.3) x10*3/uL Absolute Nucleated RBC 0.000 (0.0-0.012) X10*3/uL Nucleated RBC % (auto) 0.0 (0.0-0.2) /100WBC ESR 11 (0-20) MM/HR Sodium 143 (135-145) mmol/L Potassium 4.1 (3.3-5.1) mmol/L Chloride 108 (96-108) mmol/L Carbon Dioxide 27 (22-29) mmol/L Anion Gap 12 (12-20) BUN 12 (9-16) mg/dL Creatinine 0.95 (0.5-1.4) mg/dL Estim Creat Clear Calc 82.5 Estimated GFR > 60 Random Glucose 100 (60-115) mg/dL Calcium 9.7 (8.4-10.2) mg/dL Magnesium 1.9 (1.6-2.6) mg/dL Total Bilirubin 0.6 (0.0-1.0) mg/dL AST 24 (5-31) U/L ALT 19 (0-31) U/L Alkaline Phosphatase 94 (39-117) U/L C-Reactive Protein 0.21 (< or = 0.50) mg/dL Total Protein 7.6 (6.5-8.0) g/dL Albumin 4.3 (3.5-5.0) g/dL Beta HCG, Quant < 2 mIU/mL Urine Color Dark Yellow Urine Appearance Clear Urine pH 6.0 (5.0-9.0) Ur Specific [place] >= 1.030 H (1.005-1.025) Urine Protein Trace (Neg-Trace) mg/dL Urine Glucose (UA) Negative (Negative) mg/dL Urine Ketones Trace (Negative) mg/dL Urine Blood Large (3+) H (Negative) Urine Nitrite Negative (Negative) Ur Leukocyte Esterase Trace H (Negative) Urine RBC >20 H (0-2) /HPF Urine WBC 0-5 (0-5) /HPF Ur Squamous Epith Cells 6-10 (0-2) /HPF Urine Bacteria None Seen (None Seen) Hyaline Casts 0-2 (0-2) /LPF Chlam trachomat DNA PCR NOT DETECTED (Not Detect.) N.gonorrhoeae DNA (PCR) NOT DETECTED (Not Detect.) Discharge Plan Discharge Clinical Impression: Back pain Patient Disposition: Home, Self-Care Instructions: Acute Low Back Pain (ED) Prescriptions: New lidocaine [Lidoderm] 5 % adhesive patch,medicated 1 patch topical DAILY Qty: 15 0RF Rx Instructions: leave on most painful area for up to 12 hrs No Action methocarbamol 750 mg tablet 750 mg PO TID PRN (Reason: muscle spasm) Qty: 20 0RF lidocaine [Lidoderm] 5 % adhesive patch,medicated 1 patch topical DAILY Qty: 15 0RF Rx Instructions: leave on most painful area for up to 12 hrs Referrals: Jaya Yousif MD [Primary Care Provider] - 07/09/23 Interventions: ED Discharge Assessment Last Done: 07/06/23 02:33 Discharge Date/Time: 07/06/23 02:34 Print Language: Bulgarian
[2023-07-05 16:24] LABS: MANUAL DIFF FLAG NO
[2023-07-05 16:25] LABS: Basophils Percent Auto 0.5 % (0-2); Eosinophils Absolute Auto 0.1 X10*3/uL (0.0-0.4); Eosinophils Percent Auto 0.9 % (0-4); Hemoglobin 14.4 g/dl (12.0-16.0); Imm Gran Abs Auto 0.02 X10*3/uL (0.00-0.03); Imm Gran Pct Auto 0.3 % (0.0-0.4); Lymphocytes Absolute Auto 1.7 X10*3/uL (1.2-4.9); Lymphocytes Percent Auto 22.6 % (20-40); Mean Corpuscular HGB Conc 33.5 g/dl (31.0-35.0); Mean Corpuscular Hemoglobin 30.8 pg (27.0-33.0); Mean Corpuscular Volume 92.1 fL (80.0-98.0); Mean Platelet Volume 10.4 fL (9.4-12.3); Monocytes Absolute Auto 0.4 X10*3/uL (0.1-1.2); Monocytes Percent Auto 4.7 % (2-11); Neutrophils Absolute Auto 5.3 x10*3/uL (2.0-8.3); Platelet Count 264 X10*3/uL (160-400); Red Blood Count 4.67 X10*6/uL (4.20-5.50); Red Cell Distribution Width 12.6 % (11.0-16.0); White Blood Count 7.4 X10*3/uL (4.8-10.8)
[2023-07-05 16:38] LABS: Appearance Urine Clear; Color Urine Dark Yellow; Glucose Urine UA Negative (Negative); Leukocyte Esterase Urine Trace (Negative); Nitrite Urine Negative (Negative); Specific Gravity - Urine >= 1.030 (1.005-1.025); UMIC TRIGGER UACC YES; Urine Blood Large (3+) (Negative); Urine Ketones Trace mg/dL (Negative); Urine Protein Trace mg/dL (Neg-Trace)
[2023-07-05 16:42] LABS: Bacteria Urine None Seen (None Seen); Hyaline Casts Urine 0-2 /LPF (0-2); RBC Urine >20 /HPF (0-2); WBC Urine 0-5 /HPF (0-5)
[2023-07-05 16:45] LABS: Alanine Aminotransferase 19 U/L (0-31); Albumin Level 4.3 g/dL (3.5-5.0); Alkaline Phosphatase 94 U/L (39-117); Anion Gap 12 (12-20); Aspartate Amino Transferase 24 U/L (5-31); Bilirubin Total 0.6 mg/dL (0.0-1.0); Blood Urea Nitrogen 12 mg/dL (9-16); Calcium 9.7 mg/dL (8.4-10.2); Carbon Dioxide 27 mmol/L (22-29); Chloride 108 mmol/L (96-108); Creatinine Clr Calc Pharmacy 82.5; Estimated Glomerular Filt Rate > 60; Glucose Random 100 mg/dL (60-115); Magnesium 1.9 mg/dL (1.6-2.6); Potassium 4.1 mmol/L (3.3-5.1); Sodium 143 mmol/L (135-145); Total Protein 7.6 g/dL (6.5-8.0)
[2023-07-05 16:47] LABS: HCG Quantitative < 2 mIU/mL
[2023-07-05 22:06] VITALS: BP 120/86; PULSE 87; RESP 16; TEMP 36.8; O2SAT 98
--- NOTE | 2023-07-06 00:08 | ED_ITS ---
HPI - Abdominal Pain General Chief Complaint: Abdominal Pain Stated Complaint: right side back and abd pain Time Seen by Provider: 07/05/23 21:41 History of Present Illness HPI narrative: Patient is a 48-year-old female presents today with having right back pain radiating to the right lower abdomen. Patient was seen here for the same on Sunday. Had a CT scan done at that time. Had intermittent urinary symptoms. Denies any vaginal discharge but did note some question whitish material from her urine. Patient denies any nausea no vomiting no diarrhea. Patient denies any bowel urinary incontinence. Denies any trauma. No history of appendicitis. No history of abdominal surgery in the past. No fever no chills. Positive history of left sided kidney stone in the kidney. No ureteral stone noted on a previous CT. Patient denies any history diverticulitis. Denies any history of having any rash. She is from home. Does not think she is . Related Data Previous Rx's ?Medication ?Instructions ?Recorded lidocaine 5 % topical patch 1 patch topical DAILY #15 ea 06/29/23 (Lidoderm) methocarbamol 750 mg tablet 750 mg PO TID PRN muscle spasm #20 06/29/23 tabs lidocaine 5 % topical patch 1 patch topical DAILY #15 ea 07/06/23 (Lidoderm) Allergies Allergy/AdvReac Type Severity Reaction Status Date / Time No Known Allergies Allergy Mild NOT Verified 07/05/23 16:10 APPLICABLE Review of Systems Review of Systems Positive right lower quadrant right flank pain Yes all other systems are reviewed and are negative PMFSH Past Medical History Attestation statement: The following information was validated with the patient. Medical History Intermittent palpitations Back pain Anemia Surgical History History of endometrial ablation History of cholecystectomy Family History Family History Father No problems noted. Mother Diabetes Hypertension Sister Asthma Family history of thyroid problem Social History Social History Housing: Apartment Alcohol intake: current Alcohol intake frequency: holidays/special occasions only Patient Tobacco Use Status: Current everyday Tobacco user Tobacco use type: Cigarette Cigarette Packs Per Day: 0.5 Cigarettes Per Day: 10 Years Smoked: 20 e-Cigarette/Vaping Use: Never Used Second Hand Smoke Exposure: Yes Advance Directives: No Advance Directives Information Provided: No service: No Current occupational status: employed Cognitive needs: No Hearing needs: No Vision needs: No Physical Exam ED Vital Signs: Vital Signs - 24 hr 07/05/23 16:07 07/05/23 22:06 07/06/23 01:27 Temperature 98.3 F 98.2 F 98.2 F Pulse Rate 89 87 82 Respiratory Rate 16 16 16 Blood Pressure 118/89 120/86 124/82 Pulse Oximetry 97 98 97 Oxygen Delivery Method Room Air Room Air Room Air BMI result Body Mass Index 31.7 Appearance: Alert. Oriented X3. No acute distress. Eyes: Pupils equal, round and reactive to light. ENT: Pharynx normal. Neck: Normal inspection. Neck supple. No lymph nodes noted. No crepitus CVS: Normal heart rate and rhythm. Pulses normal. Normal S1 and S2 Respiratory: No respiratory distress. Breath sounds normal. No Wheezing. No rales Abdomen: Soft and nontender. No rigidity. No distention. good BS x4 Skin: Skin warm and dry. Normal skin color. Normal skin turgor. Extremities: No lower extremity edema. Neurovascular intact to all extremities. No Lacerations. No Rash Neuro: Oriented X 3. No motor deficit. No sensory deficit. Moving all extermities. No slurred speech Medical Decision Making Medical Decision Making MDM Narrative: Well-appearing nonacute distress. Positive pain to the right flank right lower quadrant area. The pain is sharp. Worse with movement. Worse with ambulation. Patient's white count is normal. There has no signs of infection. CT scan was done only a week ago for the same pain. At the time has no right-sided renal stone or ureteral stone noted. No evidence for appendicitis. No fracture. Patient denies any rash developing. It has been over week unlikely secondary to shingle. Pain is sharp worse with ambulation question arthritis. There is no bowel urinary incontinence. There has no focal weakness to suggest patient has cauda equinus syndrome. Patient denies any history of recreational drug use. Less likely to be secondary to spinal abscess nevertheless a sed rate and CRP was added. A repeat ultrasound was done to rule out the possibility of torsion. GC chlamydia was sent. Patient's ultrasound of the pelvis showed no evidence of torsion. X-ray of the hip by my interpretation showed no acute fracture I reviewed radiology's reading. Patient's sed rate is normal. CRP is normal. There has no evidence for septic joint in the setting of a normal range of motion normal white count normal sed rate and CRP. Will have patient follow-up on an outpatient basis. In stable condition. Differential Diagnosis Differential Diagnoses: The differential diagnosis associated with the presentation includes Kidney stone Admission/Observation Consideration of admission/observation: Escalation of care including admission/observation considered Symptom improving Lab Data MDM Lab Attestation statement: I reviewed the patient's lab results. 07/05/23 16:20 07/05/23 16:20 Labs: Lab Results 07/05/23 07/05/23 07/06/23 Range/Units 16:20 16:27 01:19 WBC 7.4 (4.8-10.8) X10*3/uL RBC 4.67 (4.20-5.50) X10*6/uL Hgb 14.4 (12.0-16.0) g/dl Hct 43.0 (37.0-47.0) % MCV 92.1 (80.0-98.0) fL MCH 30.8 (27.0-33.0) pg MCHC 33.5 (31.0-35.0) g/dl RDW 12.6 (11.0-16.0) % Plt Count 264 (160-400) X10*3/uL MPV 10.4 (9.4-12.3) fL Immature Gran % (Auto) 0.3 (0.0-0.4) % Neut % (Auto) 71.0 (45-73) % Lymph % (Auto) 22.6 (20-40) % Daniels % (Auto) 4.7 (2-11) % Eos % (Auto) 0.9 (0-4) % Baso % (Auto) 0.5 (0-2) % Lymph # (Auto) 1.7 (1.2-4.9) X10*3/uL Daniels # (Auto) 0.4 (0.1-1.2) X10*3/uL Eos # (Auto) 0.1 (0.0-0.4) X10*3/uL Baso # (Auto) 0.0 (0.0-0.2) X10*3/uL Abs Immat Gran (auto) 0.02 (0.00-0.03) X10*3/uL Absolute Neuts (auto) 5.3 (2.0-8.3) x10*3/uL Absolute Nucleated RBC 0.000 (0.0-0.012) X10*3/uL Nucleated RBC % (auto) 0.0 (0.0-0.2) /100WBC ESR 11 (0-20) MM/HR Sodium 143 (135-145) mmol/L Potassium 4.1 (3.3-5.1) mmol/L Chloride 108 (96-108) mmol/L Carbon Dioxide 27 (22-29) mmol/L Anion Gap 12 (12-20) BUN 12 (9-16) mg/dL Creatinine 0.95 (0.5-1.4) mg/dL Estim Creat Clear Calc 82.5 Estimated GFR > 60 Random Glucose 100 (60-115) mg/dL Calcium 9.7 (8.4-10.2) mg/dL Magnesium 1.9 (1.6-2.6) mg/dL Total Bilirubin 0.6 (0.0-1.0) mg/dL AST 24 (5-31) U/L ALT 19 (0-31) U/L Alkaline Phosphatase 94 (39-117) U/L C-Reactive Protein 0.21 (< or = 0.50) mg/dL Total Protein 7.6 (6.5-8.0) g/dL Albumin 4.3 (3.5-5.0) g/dL Beta HCG, Quant < 2 mIU/mL Urine Color Dark Yellow Urine Appearance Clear Urine pH 6.0 (5.0-9.0) Ur Specific [place] >= 1.030 H (1.005-1.025) Urine Protein Trace (Neg-Trace) mg/dL Urine Glucose (UA) Negative (Negative) mg/dL Urine Ketones Trace (Negative) mg/dL Urine Blood Large (3+) H (Negative) Urine Nitrite Negative (Negative) Ur Leukocyte Esterase Trace H (Negative) Urine RBC >20 H (0-2) /HPF Urine WBC 0-5 (0-5) /HPF Ur Squamous Epith Cells 6-10 (0-2) /HPF Urine Bacteria None Seen (None Seen) Hyaline Casts 0-2 (0-2) /LPF Independent Interpretation I performed an independent interpretation of an: Plain X-Ray (X-ray of the hip is grossly negative for any acute evidence of fracture.) Radiology Impression Discussion of test interpretation with radiology: I have reviewed the radiologist's reading. External Record Review External record reviewed: Prior outpatient radiology Prescription Management I considered prescription management with: Pain Medication Discharge Plan Discharge Clinical Impression: Back pain Patient Disposition: Home, Self-Care Instructions: Acute Low Back Pain (ED) Prescriptions: New lidocaine [Lidoderm] 5 % adhesive patch,medicated 1 patch topical DAILY Qty: 15 0RF Rx Instructions: leave on most painful area for up to 12 hrs No Action methocarbamol 750 mg tablet 750 mg PO TID PRN (Reason: muscle spasm) Qty: 20 0RF lidocaine [Lidoderm] 5 % adhesive patch,medicated 1 patch topical DAILY Qty: 15 0RF Rx Instructions: leave on most painful area for up to 12 hrs Referrals: Jaya Yousif MD [Primary Care Provider] - 07/09/23 Print Language: Turkmen
[2023-07-06 00:23] LABS: C Reactive Protein 0.21 mg/dL (< or = 0.50)
[2023-07-06 01:27] VITALS: BP 124/82; PULSE 82; RESP 16; TEMP 36.8; O2SAT 97
[2023-07-06 01:56] LABS: Erythrocyte Sedimentation Rate 11 MM/HR (0-20)
[2023-07-06] MEDS: Ketorolac Tromethamine 30 MG/ML VIAL IM (02:28)
[2023-07-06 02:33] VITALS: BP 134/78; PULSE 74; RESP 16; TEMP 36.8; O2SAT 98
[2023-07-06 02:46] LABS: CT PCR NOT DETECTED (Not Detect.); NG PCR NOT DETECTED (Not Detect.)
== END 2023-07-06 02:34 | disposition home or self-care (01) ==
PROVIDERS: Physician Assistant; Emergency Provider Emergency Medicine Emergency Medical Services; PCP Internal Medicine
DX: M54.9 Dorsalgia, unspecified (principal); R30.0 Dysuria; N20.0 Calculus of kidney; Z87.442 Personal history of urinary calculi
CPT/HCPCS: 0353U; 36415; 73502; 76830; 76856; 80053; 81001; 83735; 84702; 85025; 85652; 86140; 93975; 96372; 99284; J1885

== ENCOUNTER 2023-07-09 10:08 | Outpatient (AMB) | payer OTHER, SELFPAY ==
--- NOTE | 2023-07-09 10:09 | A.OFFVIS_ITS ---
Intake Visit Reasons: u/s results Allergies No Known Allergies Allergy (Mild, Verified 07/05/23 16:10) NOT APPLICABLE HPI Comments Details: The patient is scheduled tele health visit for follow-up regarding pelvic pain. The workup include the following GC/CT with BV panel were all negative. Urine dip showed microscopic hematuria, urine culture grew [id number] mixed bacterial myrtle, pelvic ultrasound showed the following: Uterus measures 8.3 x 4.6 x 4.6 cm. Endometrial stripe is not adequately delineated. There are 3 anechoic regions within the uterus, measuring up to 0.8 cm, 1.0 cm, and 0.3 cm in maximal dimension. The right ovary measures 2.7 x 2.6 x 1.9 cm, and the left ovary measures 1.7 x 2.4 x 2.4 cm. Small cysts in the bilateral ovaries favor functional cysts/follicles; no follow-up recommended. Doppler evaluation demonstrates arterial and venous waveforms in both ovaries. [facility], LAT[facility] Medical History Intermittent palpitations Back pain Anemia Surgical History History of endometrial ablation History of cholecystectomy Family History Father No problems noted. Mother Diabetes Hypertension Sister Asthma Family history of thyroid problem Social History Housing: Apartment Alcohol intake: current Alcohol intake frequency: holidays/special occasions only Alcohol type: beer Patient Tobacco Use Status: Current everyday Tobacco user Tobacco use type: Cigarette Cigarette Packs Per Day: 0.5 Cigarettes Per Day: 10 Years Smoked: 20 e-Cigarette/Vaping Use: Never Used Second Hand Smoke Exposure: Yes service: No Current occupational status: employed Cognitive needs: No Hearing needs: No Vision needs: No Female Reproductive History Menstrual Age of Menarche: 11 Review of Systems Const All systems reviewed & are unremarkable except as noted in HPI and below Reports as per HPI and Reports no additional complaints GI Reports no additional complaints Reports no additional complaints Telehealth Telehealth Telehealth Platform: Telephone Location of provider rendering services: practice address Location of patient: address on file Patient Identification confirmed using: Name, : Yes Telehealth method: video Patient verbally consented to treatment: Yes Patient verbally consented to billing insurance company: Yes Patient informed of any privacy concerns related to visit: Yes Assessment & Plan Assessment & Plan (1) Microscopic hematuria: Code(s): R31.29 - Other microscopic hematuria Category: Medical Plan: Repeat urine dip done in the ER on 06/05 showed microscopic hematuria, will send urine for culture, order CT scan of abdomen pelvis and placed urology referral (2) Pelvic pain: Comment: r/o post ablation syndrome Code(s): R10.2 - Pelvic and perineal pain Category: Medical Plan: Discussed with the patient the finding on ultrasound , differential diagnosis discussed with the patient included causes, post ablation syndrome and others. Recommended the patient to see her PCP, will refer to Urology with CT scan of abdomen pelvis . Instructions given the patient to schedule a 2 week follow-up appointment. Instructed the patient to call our office back in case a referral appointment is not scheduled, missed or canceled so that we will assist on rescheduling another appointment, the patient verbalized understanding agreed with the plan. All questions answered, the patient verbalized understanding. I spent a total of 20 minutes reviewing the chart, talking to the patient via video and documenting in the medical record. Orders: Orders Urine Culture Today R31.29 - Other microscopic hematuria CT abdomen pelvis wo/w IV con Today R31.29 - Other microscopic hematuria Referrals Urology Referral R31.29 - Other microscopic hematuria Coding Level of Care Code Tele Est Pt Level 1 (13737) Diagnoses Microscopic hematuria R31.29 Pelvic pain R10.2
== END 2023-07-09 10:59 | disposition home or self-care (01) ==
LOC: HO.HWS 10:08
PROVIDERS: PCP Internal Medicine; Visit Provider Obstetrics & Gynecology
DX: R31.29 Other microscopic hematuria (principal); R10.2 Pelvic and perineal pain
CPT/HCPCS: 99211

== ENCOUNTER → 2023-07-09 10:08 | Outpatient (BNVA) | payer OTHER, SELFPAY | PROVIDERS: PCP Internal Medicine; Visit Provider Obstetrics & Gynecology ==

== ENCOUNTER 2023-07-20 13:14 | Outpatient (REF) | payer OTHER, SELFPAY ==
[2023-07-20 14:49] LABS: Blood Urea Nitrogen 11 mg/dL (9-16); Estimated Glomerular Filt Rate > 60
== END 2023-07-20 13:15 | disposition home or self-care (01) ==
LOC: HO.LAB 13:14
PROVIDERS: PCP Internal Medicine; Visit Provider Obstetrics & Gynecology
DX: N93.9 Abnormal uterine and vaginal bleeding, unspecified (principal); R31.29 Other microscopic hematuria
CPT/HCPCS: 36415; 82565; 84520; 87086

== ENCOUNTER 2023-07-24 11:17 | Outpatient (AMB) | payer OTHER, SELFPAY ==
--- NOTE | 2023-07-24 11:21 | MHC.PC.OV ---
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 Guardian Ad Litem: Not Required per policy Accompanied by: Self / Same As Patient Allergies No Known Allergies Allergy (Mild, Verified 07/24/23 11:23) NOT APPLICABLE Medication List - Last Reconciled 07/24/23 by Jaya Yousif MD lidocaine 5% (Lidoderm) 1 patch topical DAILY lidocaine 5% (Lidoderm) 1 patch topical DAILY methocarbamol 750 mg PO TID PRN Tobacco use date assessed: 02/23/23 Dental Screening Dental Screen Date: 04/02/23 HPI 3mth f/u HPI Details has a liver lesion and rectal bleeding; recommended she see gi; also has lumbar pain radiating down right leg; [facility] Medical History Intermittent palpitations Back pain Anemia Surgical History History of endometrial ablation History of cholecystectomy Family History Father No problems noted. Mother Diabetes Hypertension Sister Asthma Family history of thyroid problem Social History Housing: Apartment Alcohol intake: current Alcohol intake frequency: holidays/special occasions only Alcohol type: beer Patient Tobacco Use Status: Current everyday Tobacco user Tobacco use type: Cigarette Cigarette Packs Per Day: 0.5 Cigarettes Per Day: 10 Years Smoked: 20 e-Cigarette/Vaping Use: Never Used Second Hand Smoke Exposure: Yes service: No Current occupational status: employed Cognitive needs: No Hearing needs: No Vision needs: No Female Reproductive History Menstrual Age of Menarche: 11 Questionnaire Thrive Questionnaire Date Thrive assessed: 02/23/23 FRANCOIS-7 AMB Questionnaire FRANCOIS-7 Date FRANCOIS - 7 assessed: 02/23/23 Source: Developed by Drs. Fan Campos, Marva Vaca, Ever Edwards and colleagues, with an educational noemi from [employer]. Review of Systems Const Denies chills, Denies headache(s) and Denies weight loss ENT Denies headache(s) Card Denies chest pain, Denies syncope, Denies irregular heart rhythm and Denies dyspnea Resp Denies chest congestion, Denies cough and Denies dyspnea GI Denies abdominal pain, Denies change in stool character, Denies nausea and Denies vomiting Musc Denies deformity and Denies joint swelling Neuro Denies syncope and Denies headache(s) Physical exam (Primary Care) Vital Signs: Last Vital Signs Pulse 81 07/24/23 11:22 BP 110/64 07/24/23 11:22 Pulse Ox 99 07/24/23 11:22 Oxygen Delivery Method Room Air 07/24/23 11:22 BMI result Body Mass Index 31.6 Tobacco/Smoking Status: Tobacco use Status Tobacco use date assessed 02/23/23 07/24/23 11:22 Patient Tobacco Use Status Current everyday Tobacco 07/24/23 11:22 Tobacco use type Cigarette 07/24/23 11:22 e-Cigarette/Vaping Use Never Used 07/24/23 11:22 Thrive Assessment: Date of Thrive Assessment Date Thrive assessed 02/23/23 07/24/23 11:22 Const General: cooperative, comfortable, no acute distress and alert Neck Neck: Yes no lymphadenopathy Thyroid: Thyroid normal Resp Effort & Inspection: normal respiratory effort Auscultation: clear to auscultation bilaterally Percussion: percussion normal Cardio Jugular venous distension: no JVD Palpation: normal PMI Rate: regular rate Rhythm: regular rhythm Heart sounds: S1 normal heart sound present and S2 normal heart sound present GI Inspection: Yes normal to inspection Palpation (GI): No hepatosplenomegaly present Skin General skin exam: no rashes or lesions noted Extrem General: Yes no clubbing, cyanosis or edema Assessment and Plan Assessment & Plan (1) Rectal bleeding: Code(s): K62.5 - Hemorrhage of anus and rectum Plan: ref gi (2) Lumbar radicular pain: Code(s): M54.16 - Radiculopathy, lumbar region Plan: mri ordered Orders: Orders MR lumbar spine wo con Today M54.16 - Radiculopathy, lumbar region Referrals Gastroenterology Referral R10.9 - Unspecified abdominal pain Medications: New tramadol 50 mg PO TID 7 days PRN 20 tabs 0RF pain Coding Level of Care Code Est Pt Level 3 (22498) Diagnoses Rectal bleeding K62.5 Lumbar radicular pain M54.16
[2023-07-24 11:22] VITALS: BP 110/64; PULSE 81; O2SAT 99; BMI 31.6
== END 2023-07-24 11:44 | disposition home or self-care (01) ==
PROVIDERS: PCP Internal Medicine; Visit Provider Internal Medicine
DX: K62.5 Hemorrhage of anus and rectum (principal); M54.16 Radiculopathy, lumbar region
CPT/HCPCS: 99213

== ENCOUNTER 2023-09-21 07:10 | Outpatient (REF) | payer OTHER, SELFPAY ==
--- NOTE | ~2023-09-21 | CT_ITS ---
EXAMINATION: CT ABDOMEN AND PELVIS WITHOUT AND WITH CONTRAST CLINICAL INFORMATION: Other microscopic hematuria COMPARISON: CT abdomen and pelvis 06/29/2023, 03/18/2019 TECHNIQUE: Multidetector volumetric imaging was performed of the abdomen and pelvis before and after the IV administration of 85 mL of Omnipaque 350 intravenous contrast. Sagittal and coronal reformatted images were obtained on the technologist's workstation. This CT examination was performed using dose optimization techniques as appropriate, variously including the following: *Automated exposure control *Adjustment of mA and/or kV according to patient size (this includes techniques or standardized protocols for targeted exams where dose is matched to indication/reason for exam; i.e. extremities or head) *Use of iterative reconstruction technique DLP: 833 mGy-cm FINDINGS: LUNG BASES: No suspicious lung nodules. LIVER, GALLBLADDER, AND BILIARY TREE: The liver is normal in size. Known hepatic hemangioma in segment 7 is stable compared to prior MRI. No new suspicious liver lesion. No biliary ductal dilatation. Cholecystectomy. PANCREAS: No discrete pancreatic mass or pancreatic ductal dilatation. SPLEEN: The spleen is normal in size. ADRENAL GLANDS: No adrenal mass. KIDNEYS AND URETERS: Unchanged 3 mm nonobstructing calculus in the lower pole of the left kidney 9.4 cm from the posterolateral skin surface. The nephrograms are symmetric. No suspicious renal mass. Urinary excretion of contrast is symmetric. No hydroureteronephrosis. BLADDER: Trabeculated bladder wall. No discrete bladder mass. GASTROINTESTINAL TRACT: The small and large bowel are normal in caliber. The appendix appears normal. Mild colonic diverticulosis without evidence of acute diverticulitis. ABDOMINAL WALL: No significant hernia is appreciated. LYMPH NODES: No pathologically enlarged lymph nodes. VASCULAR: No aortic aneurysm. Circumaortic left renal vein. PELVIC VISCERA: Unremarkable OSSEOUS STRUCTURES: No destructive osseous lesions. Mild degenerative changes in the spine. CT/CT abdomen pelvis wo/w IV con IMPRESSION: 3 mm nonobstructing calculus lower pole left kidney. Trabeculated urinary bladder wall. No discrete bladder mass. Correlate clinically. Fleischner guidelines were followed. Electronically signed by: Wilder Leal MD 10/11/2023 08:57 AM EDT
[2023-09-21 08:31] LABS: Blood Urea Nitrogen 9 mg/dL (9-16); Estimated Glomerular Filt Rate > 60
[2023-09-21] MEDS: iohexoL 350 MG/ML 100 ML INFUS..BTL 85 ML IV (09:18)
== END 2023-09-21 07:11 | disposition home or self-care (01) ==
LOC: HO.CT 07:10
PROVIDERS: PCP Internal Medicine; Visit Provider Obstetrics & Gynecology
DX: R31.29 Other microscopic hematuria (principal); N93.9 Abnormal uterine and vaginal bleeding, unspecified
CPT/HCPCS: 36415; 74178; 82565; 84520; Q9967

== ENCOUNTER 2023-10-16 10:58 | Outpatient (REF) | payer OTHER, SELFPAY | END 2023-10-16 10:59 | disposition home or self-care (01) | LOC: HO.LNP 10:58 | PROVIDERS: PCP Internal Medicine; Visit Provider Obstetrics & Gynecology | DX: N20.0 Calculus of kidney (principal); N32.89 Other specified disorders of bladder; N76.0 Acute vaginitis; B96.89 Other specified bacterial agents as the cause of diseases classified elsewhere | CPT/HCPCS: 99212 ==

== ENCOUNTER 2023-10-16 10:58 | Outpatient (AMB) | payer OTHER, SELFPAY ==
--- NOTE | 2023-10-16 12:04 | MHC.OFFVIS ---
Vital Signs 10/16/23 12:05 Height 5 ft 7 in Weight 200 lb 9.93 oz BMI 31.4 Intake Visit Reasons: CT follow up Allergies No Known Allergies Allergy (Mild, Verified 07/24/23 11:23) NOT APPLICABLE HPI Comments Details: Presenting for CT follow-up for microscopic hematuria. The patient is complaining of vaginal discharge associated with foul odor, no other associated symptoms, vaginal itching or any other complaint CT showed the following: IMPRESSION: 3 mm nonobstructing calculus lower pole left kidney. Trabeculated urinary bladder wall. No discrete bladder mass. Correlate clinically. Fleischner guidelines were followed. [facility] Medical History Intermittent palpitations Back pain Anemia Surgical History History of endometrial ablation History of cholecystectomy Family History Father No problems noted. Mother Diabetes Hypertension Sister Asthma Family history of thyroid problem Social History Housing: Apartment Alcohol intake: current Alcohol intake frequency: holidays/special occasions only Alcohol type: beer Patient Tobacco Use Status: Current everyday Tobacco user Tobacco use type: Cigarette Cigarette Packs Per Day: 0.5 Cigarettes Per Day: 10 Years Smoked: 20 e-Cigarette/Vaping Use: Never Used Second Hand Smoke Exposure: Yes service: No Current occupational status: employed Cognitive needs: No Hearing needs: No Vision needs: No Female Reproductive History Menstrual Age of Menarche: 11 Review of Systems Const All systems reviewed & are unremarkable except as noted in HPI and below Physical Exam Vital Signs: BMI result Body Mass Index 31.4 General: Yes no CVA tenderness External Female Exam: normal external appearance and normal appearance of the urethra Speculum Exam - Vagina: normal appearance of the vagina, normal palpation, no lesions and no masses Speculum Exam - Cervix: normal appearance of the cervix, normal palpation, no lesions, no masses and nontender Bimanual exam- vagina & uterus: normal bimanual exam, normal palpation, uterine size normal, normal palpation, uterine shape normal, No Cervical tenderness present and non-tender Bimanual Exam- Adnexa, other: normal adnexae Back/Spine/Pelvis Back: no CVA tenderness Assessment & Plan Assessment & Plan (1) Nephrolithiasis: Code(s): N20.0 - Calculus of kidney Category: Medical Plan: Discussed with the patient the finding on CT scan showing left nephrolithiasis, Urology referral placed guarding further management (2) Bladder trabeculation: Code(s): N32.89 - Other specified disorders of bladder Category: Medical Plan: Discussed with the patient the finding on CT scan showing bladder trabeculation, differential diagnosis discussed with the patient refer to Urology for further management (3) Bacterial vaginosis: Code(s): N76.0 - Acute vaginitis; B96.89 - Other specified bacterial agents as the cause of diseases classified elsewhere Category: Medical Plan: GC and chlamydia cultures with BV panel taken. Per CDC recommendation, will screen for STI, HepBs Ag, HIV, RPR, Hep C Ab ordered. Will treat with Flagyl 500 mg p.o. b.i.d. x 7 days, Instructions given to the patient to refrain from sexual activity or to use condoms consistently and correctly during the BV treatment regimen, not to douch, it might increase the risk for relapse, and to call if symptoms persist or recur. Orders: Orders CT NG by PCR Today N76.0 - Acute vaginitis Bacterial Vaginosis Panel Today N76.0 - Acute vaginitis HIV Ab/Ag Today B96.89 - Other specified bacterial agents as the cause of diseases classified elsewhere, N76.0 - Acute vaginitis Hepatitis C Antibody Today B96.89 - Other specified bacterial agents as the cause of diseases classified elsewhere, N76.0 - Acute vaginitis Syphilis Screen Today B96.89 - Other specified bacterial agents as the cause of diseases classified elsewhere, N76.0 - Acute vaginitis Hepatitis B Surface Antigen Today B96.89 - Other specified bacterial agents as the cause of diseases classified elsewhere, N76.0 - Acute vaginitis Referrals Urology Referral N20.0 - Calculus of kidney, N32.89 - Other specified disorders of bladder Medications: New metronidazole 0.75% (MetroCream) 1 appl topical BEDTIME 5 days 45 grams 0RF Coding Level of Care Code Est Pt Level 3 (15342) Diagnoses Nephrolithiasis N20.0 Bladder trabeculation N32.89 Bacterial vaginosis N76.0; B96.89
[2023-10-16 12:05] VITALS: BMI 31.4
== END 2023-10-16 12:34 | disposition home or self-care (01) ==
PROVIDERS: PCP Internal Medicine; Visit Provider Obstetrics & Gynecology
DX: N20.0 Calculus of kidney (principal); N32.89 Other specified disorders of bladder; N76.0 Acute vaginitis; B96.89 Other specified bacterial agents as the cause of diseases classified elsewhere
CPT/HCPCS: 99213

== ENCOUNTER 2023-10-16 12:20 | Outpatient (REF) | payer OTHER, SELFPAY ==
[2023-10-16 16:16] LABS: Bacterial Vaginosis PCR POSITIVE (Negative); Candida Group PCR DETECTED (Not Detect); Candida glab krusei PCR NOT DETECTED (Not Detect); Trichomonas vaginalis PCR NOT DETECTED (Not Detect)
[2023-10-16 16:46] LABS: CT PCR NOT DETECTED (Not Detect.); NG PCR NOT DETECTED (Not Detect.)
[2023-10-17 04:37] LABS: Syphilis Screen Nonreactive (Nonreactive)
[2023-10-17 04:42] LABS: HBsAGNum1 0.26 S/CO (0.00-0.99); Hepatitis B Surface Antigen Negative (Negative); ~HepC Num1 0.12 S/CO (0.00-0.79); ~Hepatitis C Antibody Nonreactive (Nonreactive)
[2023-10-17 04:58] LABS: HIV AB/AG Nonreactive (Nonreactive); HIV Num 1 0.06 S/CO (0.00-0.99)
== END 2023-10-16 12:21 | disposition home or self-care (01) ==
LOC: HO.LAB 12:20
PROVIDERS: PCP Internal Medicine; Visit Provider Obstetrics & Gynecology
DX: N76.0 Acute vaginitis (principal); B96.89 Other specified bacterial agents as the cause of diseases classified elsewhere
CPT/HCPCS: 0352U; 86780; 86803; 87340; 87389; 87491; 87591

== ENCOUNTER 2023-11-29 15:15 | Emergency (ER) | payer OTHER, SELFPAY ==
[2023-11-29 15:45] VITALS: BP 107/81; PULSE 86; RESP 18; TEMP 36.4; O2SAT 99; BMI 32.1
--- NOTE | 2023-11-29 15:48 | ED.GENADULT ---
HPI - General Adult General Chief complaint: Skin/Abscess/Foreign Body Stated complaint: lac Time Seen by Provider: 11/29/23 18:07 Source: patient Limitations: no limitations History of Present Illness ED Provider: Maria Guadalupe Mcdermott PA-C HPI narrative: 48-year-old female presents with abscess. Patient states she noted a tender swelling along the left margin of her labia. Denies fever, new vaginal discharge, or drainage from the site itself. Related Data Previous Rx's ?Medication ?Instructions ?Recorded lidocaine 5 % topical patch 1 patch topical DAILY #15 ea 06/29/23 (Lidoderm) methocarbamol 750 mg tablet 750 mg PO TID PRN muscle spasm #20 06/29/23 tabs lidocaine 5 % topical patch 1 patch topical DAILY #15 ea 07/06/23 (Lidoderm) tramadol 50 mg tablet 50 mg PO TID PRN pain 7 days #20 07/24/23 tabs metronidazole 0.75 % topical cream 1 appl topical BEDTIME 5 days #45 10/16/23 (MetroCream) grams terconazole 0.8 % vaginal cream 1 appful vaginal BEDTIME 3 days 10/17/23 #20 grams doxycycline hyclate 100 mg capsule 100 mg PO BID #14 caps 11/29/23 Allergies Allergy/AdvReac Type Severity Reaction Status Date / Time No Known Allergies Allergy Mild NOT Verified 11/29/23 15:46 APPLICABLE Review of Systems Review of Systems: Yes all other systems are reviewed and are negative Constitutional: Constitutional: Denies fatigue and Denies fever(s) Cardiovascular: Cardiovascular: Reports chest pain and Denies dyspnea Respiratory: Respiratory: Denies dyspnea Gastrointestinal: Gastrointestinal: Denies abdominal pain and Denies vomiting Genitourinary: Genitourinary: Denies genital pruritis, Denies genital lesions, Denies dysuria, Denies vaginal discharge and Denies vaginal odor Endocrine: Endocrine: Denies fatigue PMFSH Past Medical History Attestation statement: The following information was validated with the patient. Medical History Intermittent palpitations Back pain Anemia Surgical History History of endometrial ablation History of cholecystectomy Family History Family History Father No problems noted. Mother Diabetes Hypertension Sister Asthma Family history of thyroid problem Social History Social History Housing: Apartment Alcohol intake: current Alcohol intake frequency: holidays/special occasions only Alcohol type: beer Patient Tobacco Use Status: Current everyday Tobacco user Tobacco use type: Cigarette Cigarette Packs Per Day: 0.5 Cigarettes Per Day: 10 Years Smoked: 20 e-Cigarette/Vaping Use: Never Used Second Hand Smoke Exposure: Yes Use of substances other than those prescribed or required for medical reasons: No Advance Directives: No Advance Directives Information Provided: No Do you have a plan to hurt others: No Plan service: No Current occupational status: employed Cognitive needs: No Hearing needs: No Vision needs: No Physical Exam ED Vital Signs: Vital Signs - 24 hr 11/29/23 15:45 11/29/23 18:00 Temperature 97.5 F 98.1 F Pulse Rate 86 82 Respiratory Rate 18 15 Blood Pressure 107/81 125/81 Pulse Oximetry 99 99 Oxygen Delivery Method Room Air Room Air BMI result Body Mass Index 32.1 Const Other: Alert, well in appearance Orientation/consciousness: patient oriented x3 Resp Other: Nonlabored respiration Cardio Other: Normal peripheral perfusion GI Other: Abdomen is soft, nondistended nontender Other: Tender indurated swelling along inner margin of left labia with central fluctuance and pustule, extremely tender to palpation Skin Other: Warm dry no rash Neuro General: patient oriented x3, no focal motor deficits and CN's II-XI intact bilaterally Psych Other: Calm cooperative Course Course Course Narrative: RME, this is a rapid medical exam performed by Tarun Lovett please refer to primary provider for complete H&P- 48-year-old female presents for evaluation of a large bump to her left groin. She reports she leaving 2 days ago and now has a red painful lump. Plan for direct observation when a room is available Medications Administered Discontinued Medications Generic Name Dose Route Start Last Admin Trade Name Freq PRN Reason Stop Dose Admin Doxycycline Monohydrate 100 mg 11/29/23 20:21 11/29/23 20:32 Doxycycline Monohydrate 100 Mg Capsule PO 11/29/23 20:22 100 mg ONCE ONE Administration Lidocaine/Epinephrine 30 ml 11/29/23 18:35 11/29/23 20:32 Lidocaine Hcl 1% Pf/Epi 1:200,000 30 Ml Vial INFILTRATI 11/29/23 18:36 30 ml ONCE ONE Administration Lidocaine/Epinephrine/Tetracaine 3 ml 11/29/23 18:35 11/29/23 20:32 Lidocaine/Racepinep/Tetracaine 3 Ml Gel.Pf.Marlene TOPICAL 11/29/23 18:36 3 ml ONCE ONE Administration Procedures Abscess I/D Site: bartholin's gland Side (if applicable): left Sedation/analgesia: none Local Anesthetic: lidocaine 1% Amount of anesthesia used (mL): 3 Technique: incised with blade Amount of fluid expressed (mL): 1 Sent for culture/gram staining?: No Irrigation: Yes Packing used?: none Medical Decision Making Medical Decision Making MDM Narrative: 48-year-old female presents with abscess. Patient states she noted a tender swelling along the left margin of her labia. Denies fever, new vaginal discharge, or drainage from the site itself. No relevant chronic issues History: Per patient I have considered the following differential diagnoses: Cellulitis, purulent cellulitis, folliculitis, abscess, Bartholin gland cyst/abscess Plan: Patient has a Bartholin gland abscess. I will I and D. We will place on doxy. No indication for labs or imaging Discharge Plan Discharge Clinical Impression: Abscess of Bartholin gland Patient Disposition: Home, Self-Care Instructions: Abscess (ED), Incision and Drainage (ED) Additional Instructions: You were treated for an abscess of the Bartholin gland. See home care instructions. Keep the area clean and dry, apply warm compresses to the site several times a day for at least 10-15 minutes each time. The bleeding we will subside. Watch for signs of worsening infection which would include new redness, new swelling, new pain, more pus draining from the site or fever. Take the doxycycline as directed, you should be rechecked within 3-5 days. Prescriptions: New doxycycline hyclate 100 mg capsule 100 mg PO BID Qty: 14 0RF No Action terconazole 0.8 % cream 1 appful vaginal BEDTIME 3 Days Qty: 20 0RF methocarbamol 750 mg tablet 750 mg PO TID PRN (Reason: muscle spasm) Qty: 20 0RF lidocaine [Lidoderm] 5 % adhesive patch,medicated 1 patch topical DAILY Qty: 15 0RF Rx Instructions: leave on most painful area for up to 12 hrs lidocaine [Lidoderm] 5 % adhesive patch,medicated 1 patch topical DAILY Qty: 15 0RF Rx Instructions: leave on most painful area for up to 12 hrs tramadol 50 mg tablet 50 mg PO TID PRN (Reason: pain) 7 Days Qty: 20 0RF metronidazole [MetroCream] 0.75 % cream 1 appl topical BEDTIME 5 Days Qty: 45 0RF Stand Alone Forms: Work/School Release Print Language: Sierra Leonean
[2023-11-29 18:00] VITALS: BP 125/81; PULSE 82; RESP 15; TEMP 36.7; O2SAT 99
[2023-11-29] MEDS: Lidocaine/Racepinep/Tetracaine 3 ML GEL.PF.APP TOPICAL (20:32)
[2023-11-29] MEDS: Lidocaine HCl 1% PF/Epi 1:200,000 30 ML VIAL INFILTRATI (20:32)
[2023-11-29] MEDS: Doxycycline Monohydrate 100 MG CAPSULE PO (20:32)
[2023-11-29 20:49] VITALS: BP 123/78; PULSE 75; RESP 18; TEMP 36.7; O2SAT 100
== END 2023-11-29 20:50 | disposition home or self-care (01) ==
PROVIDERS: Emergency Provider Emergency Medicine; PCP Internal Medicine
DX: N75.0 Cyst of Bartholin's gland (principal)
CPT/HCPCS: 56420; 99284; J2004

== ENCOUNTER 2024-09-18 15:54 | Outpatient (AMB) | payer OTHER, SELFPAY ==
--- NOTE | 2024-09-18 16:00 | A.OFFPC_ITS ---
Vital Signs 3 09/18/24 16:02 Height 5 ft 7 in Weight 207 lb 8 oz BMI 32.5 BP 108/58 L Blood Pressure Location Lt brachial Position Sitting Pulse 87 Pulse Source Pulse Oximeter Pulse Oximetry (%) 96 Oxygen Delivery Method Room Air Intake Visit Reasons: PO from Benja/JOE Card Hand Required: No Accompanied by: Self / Same As Patient Allergies No Known Allergies Allergy (Mild, Verified 09/18/24 16:11) NOT APPLICABLE Medication List - Last Reconciled 09/18/24 by Gretchen Hsu PA-C methocarbamol 750 mg PO TID PRN metronidazole 0.75% (MetroCream) 1 appl topical BEDTIME 5 days terconazole 0.8% 1 appful vaginal BEDTIME 3 days Tobacco use date assessed: 09/18/24 Dental Screening Dental Screen Date: 04/02/23 Did you have a dental visit in the last 12 months?: Yes Did you have a dental problem in the last 6 months where you did not have access to dental care?: No Was dental information given to patient?: Patient has dentist HPI PO from Benja/JOE 2 HPI0 Details 49 year old female with past medical his tory of anemia, AUB last seen by Dr. Yousif 07/2023 coming in for PO. Presenting with elbow pain, neck swelling, and rectal bleeding. 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 The patient experiences pain with movement and plans to use a compression sleeve. The patient is a smoker and currently not interested in cessation. Rectal bleeding is persistent, and a referral to gastroenterology has been made for further investigation. Neck swelling has been noted for four months without pain or swallowing issues. The patient reports significant hair loss and is concerned about potential hormonal imbalances, requesting estrogen level testing. Preventative care includes plans for a mammogram, colonoscopy, and Pap smear. [facility] Medical History Intermittent palpitations Back pain Anemia Surgical History History of endometrial ablation History of cholecystectomy Family History Father No problems noted. Mother Diabetes Hypertension Sister Asthma Family history of thyroid problem Social History Housing: Apartment Alcohol intake: current Alcohol intake frequency: holidays/special occasions only Alcohol type: beer Patient Tobacco Use Status: Current everyday Tobacco user Tobacco use type: Cigarette Cigarette Packs Per Day: 0.5 Cigarettes Per Day: 10 Years Smoked: 20 e-Cigarette/Vaping Use: Never Used Second Hand Smoke Exposure: Yes service: No Current occupational status: employed Cognitive needs: No Hearing needs: No Vision needs: No Female Reproductive History Menstrual Age of Menarche: 11 control method: none Questionnaire PHQ-9 Over the last 2 weeks, how often have you been bothered by any of the following problems? 1. Little interest or pleasure in doing things: not at all 2. Feeling down, depressed, or hopeless: not at all 3. Trouble falling or staying asleep, or sleeping too much: not at all 4. Feeling tired or having little energy: not at all 5. Poor appetite or overeating: not at all 6. Feeling bad about yourself - or that you are a failure or have let yourself or your family down: not at all 7. Trouble concentrating on things, such as reading the newspaper or watching television: not at all 8. Moving or speaking so slowly that other people could have noticed. Or the opposite - being so fidgety or restless that you have been moving around a lot more than usual: not at all 9. Thoughts that you would be better off or of hurting yourself in some way: not at all Total score: 0 Depression Screening Interpretation: Negative Depression Screening Done: Yes 34641 - PHQ-9 Billing: Yes Source: Developed by Drs. Fan Campos, Marva Vaca, Ever Edwards and colleagues, with an educational noemi from [employer]. Thrive Questionnaire Date Thrive assessed: 09/18/24 I am a: Patient What is your living situation today?: I have a steady place to live Within the past 12 months, did the food you bought not last and you didn't have the money to get more?: Sometimes True Within the past 12 months, did you worry whether your food would run out before you got money to buy more?: Sometimes True Do you have trouble paying for medicines?: No Do you have trouble getting transportation to medical appointments?: No Do you have trouble paying your heating and electricity bill?: No Do you have trouble taking care of your child, family member or friend?: No Do you have trouble with day-to-day activities such as bathing, preparing meals, shopping, managing finances, etc.?: No Are you currently unemployed and looking for a job?: No Are you interested in more education?: No Please select the resources that you would like help with: None Currently or been in a relationship where the following occur: No concerns reported THRIVE Score: 2 AUDIT C Alcohol Use Questionnaire (AUDIT-C) 1. How often do you have a drink containing alcohol?: Monthly or less 2. How many drinks containing alcohol do you have on a typical day when you are drinking?: 1 or 2 3. How often do you have six or more drinks on one occasion?: Less than monthly Total Score: 2 FRANCOIS-7 AMB Questionnaire FRANCOIS-7 Date FRANCOIS - 7 assessed: 09/18/24 Feeling nervous, anxious, or on edge: 1 = Several days Not being able to stop or control worryin = Not at all Worrying too much about different things: 1 = Several days Trouble relaxin = Several days Being so restless that it is hard to sit still: 0 = Not at all Becoming easily annoyed or irritable: 0 = Not at all Feeling afraid as if something awful might happen: 0 = Not at all Total FRANCOIS-7 score (0-4 normal; 5-9 mild; 10-14 moderate; 15-21 severe): 3 Source: Developed by Drs. Fan Campos, Marva Vaca, Ever Edwards and colleagues, with an educational noemi from [employer]. FRANCOIS-7 Assessment Billing FRANCOIS-7 Assessment Tool: FRANCOIS-7 Assessment 41709 Review of Systems Const Denies body aches, Denies chills, Denies fever(s), Denies headache(s) and Denies poor appetite Eyes Reports no additional complaints ENT Denies dysphagia, Denies dizziness, Denies headache(s) and Denies odynophagia Card Denies chest pain, Denies syncope, Denies edema, Denies irregular heart rhythm, Denies lightheadedness and Denies dyspnea Resp Denies cough and Denies dyspnea GI Reports as per HPI, Denies abdominal pain, Denies constipation, Denies dysphagia, Denies diarrhea, Denies nausea, Denies odynophagia and Denies vomiting Reports no additional complaints Musc Reports no additional complaints and Denies abnormal gait Skin/Breast Reports system reviewed and no additional complaints, except as documented Neuro Denies abnormal gait, Denies dizziness, Denies syncope and Denies headache(s) Psych Reports no additional complaints Physical exam (Primary Care) Vital Signs: Last Vital Signs Pulse 87 09/18/24 16:02 BP 108/58 L 09/18/24 16:02 Pulse Ox 96 09/18/24 16:02 Oxygen Delivery Method Room Air 09/18/24 16:02 BMI result Body Mass Index 32.5 BMI Assessment/Plan discussion: High BMI High, discussed plan: lifestyle, dietary and physical activity Tobacco/Smoking Status: Tobacco use Status Tobacco use date assessed 09/18/24 09/18/24 16:06 Patient Tobacco Use Status Current everyday Tobacco 09/18/24 16:06 Tobacco use type Cigarette 09/18/24 16:06 e-Cigarette/Vaping Use Never Used 09/18/24 16:06 Are you ready to quit: No Tobacco cessation counseling provided: Yes Items discussed: Nicotine replacement Relapse Prevention: discussed dietary, exercise and/or lifestyle changes CPT code: Less than 3 minutes PHQ-9: PHQ-9 Score PHQ-9: Total score 0 09/18/24 16:30 Depression Screening Interpretation: Negative Thrive Assessment: Date of Thrive Assessment Date Thrive assessed 09/18/24 09/18/24 16:06 Currently or been in a relationship where the following occur: No concerns reported Const General: cooperative, healthy appearing, comfortable and no acute distress Orientation/consciousness: patient oriented x3 HENMT Head: Yes normocephalic Ears: hearing grossly normal bilaterally General nose exam: Normal external nose present Eyes General: appearance normal, both eyes and all related structures Conjunctivae: conjunctivae normal Neck Neck: Yes full ROM and Yes no lymphadenopathy Thyroid: Thyroid normal, not diffusely enlarged and not firm Lymphatic: no lymphadenopathy noted Neck images: 2 1. Neck swelling visible with Valsalva Resp Effort & Inspection: normal respiratory effort Auscultation: clear to auscultation bilaterally, no crackles, no rales, no rhonchi and no wheezes Cardio Rate: regular rate Rhythm: regular rhythm Skin General skin exam: no rashes or lesions noted Neuro General: patient oriented x3 Gait exam (Neuro): Normal gait present Extrem General: Yes normal to inspection, Yes full ROM and No edema Psych Affect: normal affect Attitude: cooperative Insight: Good insight present (Psych) Judgement: Good judgement present (Psych) Coding Level of Care Code Est Pt Level 4 (51395) Diagnoses Tobacco use disorder F17.200 Left elbow pain M25.522 Vulvovaginitis N76.0 Anemia D64.9 Rectal bleeding K62.5 Neck mass R22.1 Additional Codes FRANCOIS-7 Assessment Billing - FRANCOIS-7 Assessment Tool: FRANCOIS-7 Assessment 12939 ([id number]) PHQ-9 - 19879 - PHQ-9 Billing: Yes ([id number]) Assessment & Plan Assessment & Plan (1) Tobacco use disorder: Code(s): F17.200 - Nicotine dependence, unspecified, uncomplicated Category: Medical Plan: Smoking cigarettes and the use of tobacco can be harmful. We discussed the importance of stopping and options to aid in smoking cessation. Declining NRT or medical management at this time (2) Left elbow pain: Code(s): M25.522 - Pain in left elbow Category: Medical Plan: Patient complaining of left elbow pain after an hyperextension injury earlier today. Recommend rest, ice and gentle stretching. Pain persists can consider physical therapy (3) Vulvovaginitis: Code(s): N76.0 - Acute vaginitis Category: Medical Plan: Patient has a history of vulvovaginitis in his requesting metronidazole gel at this time. Prescription was sent to pharmacy (4) Anemia: Code(s): D64.9 - Anemia, unspecified Category: Medical Plan: Ordered for updated blood work. (5) Rectal bleeding: Code(s): K62.5 - Hemorrhage of anus and rectum Category: Medical Plan: Referral was placed to GI at patient request today. (6) Neck mass: Code(s): R22.1 - Localized swelling, mass and lump, neck Category: Medical Plan: Patient having a neck mass on exam. Plan for CAT scan and chest x-ray for further evaluation. Denies any symptoms of difficulty or painful swallowing or any other red flag symptoms at this time. Reviewed with patient if she should develop any red flag symptoms to reach out for urgent evaluation. Plan Management for the elbow pain includes using a compression sleeve and resting the arm. An ultrasound is planned to assess the neck swelling, which has been present for four months. The patient will be referred to gastroenterology for persistent rectal bleeding. Blood work will be conducted to evaluate hormonal levels due to hair loss concerns. Preventative care includes scheduling a mammogram, colonoscopy, and Pap smear. This note was constructed using voice recognition software. While every effort has been made to ensure accuracy and sap analyst, still areas may have been included sometimes these areas may affect the content or meeting of the given symptoms. Total time spent caring for the patient today was 30 minutes. This includes time spent before the visit reviewing the chart, time spent during the visit, and time spent after the visit and documentation. Patient was informed and verbally consented to the use of an ambient scribe for clinic note documentation during this visit. Orders: Orders 2 Complete Blood Count Auto Diff 09/25/24 Z00.00 - Encounter for general adult medical examination without abnormal findings, D64.9 - Anemia, unspecified Vitamin B12 and Folate 09/25/24 Z13.21 - Encounter for screening for nutritional disorder, D64.9 - Anemia, unspecified Vitamin D 25-OH Total 09/25/24 Z13.21 - Encounter for screening for nutritional disorder, D64.9 - Anemia, unspecified IRON PROFILE 09/25/24 D64.9 - Anemia, unspecified TSH reflex Free T4 09/25/24 Z13.29 - Encounter for screening for other suspected endocrine disorder Free T4 (Free Thyroxine) 09/25/24 Z00.00 - Encounter for general adult medical examination without abnormal findings MM tomosynthesis screening BI 09/18/24 Z12.31 - Encounter for screening mammogram for malignant neoplasm of breast, L65.9 - Nonscarring hair loss, unspecified XR chest 2V 09/25/24 R22.1 - Localized swelling, mass and lump, neck CT chest w IV con 09/18/24 R22.1 - Localized swelling, mass and lump, neck Comprehensive Met. Panel 09/25/24 Z00.00 - Encounter for general adult medical examination without abnormal findings, N20.0 - Calculus of kidney Lipid Panel 09/25/24 Z13.220 - Encounter for screening for lipoid disorders, L65.9 - Nonscarring hair loss, unspecified Estrogen 09/25/24 L65.9 - Nonscarring hair loss, unspecified UA CC w/rflx Micro + Cult 09/25/24 R35.89 - Other polyuria Referrals 2 Gastroenterology Referral K62.5 - Hemorrhage of anus and rectum, D64.9 - Anemia, unspecified Medications: New 2 lidocaine 5% leave on most painful area for up to 12 hrs 1 patch topical DAILY 30 ea 0RF metronidazole 0.75% 1 appl topical BEDTIME 45 grams 0RF Refilled 2 terconazole 0.8% 1 appful vaginal BEDTIME 20 grams 0RF 3 days Discontinued 2 methocarbamol Discontinued Reason: Patient no longer taking 750 mg PO TID PRN 20 tabs 0RF muscle spasm
[2024-09-18 16:02] VITALS: BP 108/58; PULSE 87; O2SAT 96; BMI 32.5
--- OUTSIDE RECORDS SUMMARY | 2024-09-18 16:04 | XMS_ITS | Encounter Summary ---
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 Name Role Phone Pcp, Unknown Primary Care Provider Unavailabl e Encounter Details Date Type Department Care Team (Late st Contact Info) Description 10/04/2018 Transcribe Orders [facility] [address] [place] [address] Donnell Alexandra MD [address] [place] [id number] [email or web address] Pre-employment health screening examination (Primary Dx) Social History Tobacco Use Types Packs/Day Years Used Date Smoking Tobacco: Never Assessed Comments Unknown Sex and Gender Information Value Date Recorded Sex Assigned at Not on file Legal Sex Female 1:32 PM EDT Gender Identity Not on file Sexual Orientation Not on file documented as of this encounter Plan of Treatment Not on file documented as of this encounter Results * Quantiferon-TB Gold (10/04/2018 1:44 PM EDT) [facility] QuantiFERON-TB Gold Negative Negative [facility] Comment: (NOTE) No interferon-gamma response to M. tuberculosis antigens was detected. Infection with M. tuberculosis is unlikely. A single negative result does not exclude infection with M. tuberculosis. In patients at high risk for M.tuberculosis infection, a second test should be considered in accordance with the 2017 ATS/IDSA/CDC Clinical Practice Guidelines for Diagnosis of Tuberculosis in Adults and Children [Simoninsohn DM et. al. Clin. Infect. Dis. 2017;64(2):111-115]. The reference range for the 'TB1 Ag minus Nil Result' and 'TB2 Ag minus Nil Result' is an Interferon-gamma level <0.35 IU/mL. TB1 Ag minus Nil 0.01 IU/mL [facility] DR TB2 Ag minus Nil 0.01 IU/mL [facility] DR Mitogen minus Nil 9.63 IU/mL [facility] Nil Result 0.01 IU/mL [facility] [place] Blood 10/04/2018 1:44 PM EDT 10/04/2018 1:45 PM EDT us Donnell Alexandra MD LAB BLOOD ORDERABLES Final R esult [facility] [address] [place] [address] documented in this encounter Visit Diagnoses Diagnosis Pre-employment health screening examination- Primary Health examination of defined subpopulation documented in this encounter Care Teams 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 It is not the complete legal health record.[facility]
== END 2024-09-18 16:43 | disposition home or self-care (01) ==
DX: F17.200 Nicotine dependence, unspecified, uncomplicated (principal); M25.522 Pain in left elbow; N76.0 Acute vaginitis; D64.9 Anemia, unspecified; K62.5 Hemorrhage of anus and rectum; R22.1 Localized swelling, mass and lump, neck

== ENCOUNTER → 2024-09-18 15:54 | Outpatient (BNVA) | payer OTHER, SELFPAY | PROVIDERS: PCP Internal Medicine | DX: M25.552 Pain in left hip (principal); N76.0 Acute vaginitis; D64.9 Anemia, unspecified; K62.5 Hemorrhage of anus and rectum; R22.1 Localized swelling, mass and lump, neck; R35.89 Other polyuria | CPT/HCPCS: 96127; 99212 ==

== ENCOUNTER 2024-09-25 13:19 | Outpatient (REF) | payer OTHER, SELFPAY ==
--- NOTE | ~2024-09-25 | XR_ITS ---
EXAMINATION: XR CHEST CLINICAL INFORMATION: R22.1 - Localized swelling, mass and lump, neck COMPARISON: August 21, 2022 TECHNIQUE: 2 views of the chest were obtained. FINDINGS: No consolidation, pleural effusion or pneumothorax. Cardiomediastinal silhouette size is normal. Mild multilevel thoracic spondylosis. S-shaped curvature of the thoracolumbar spine. Patient's large body habitus.. XR/XR chest 2V IMPRESSION: No acute airspace disease. Scoliosis, thoracolumbar spine. Electronically signed by: Scott Corona MD 09/25/2024 01:45 PM EDT
--- OUTSIDE RECORDS SUMMARY | 2024-09-25 13:32 | XMS_ITS | Encounter Summary ---
Author Organization [facility] Address [address] [place] [address] Phone Care Team Providers Care Communications Representative Name Role Phone Pcp, Unknown Primary Care Provider Unavailabl e Encounter Details Date Type Department Care Team (Late st Contact Info) Description 10/04/2018 Transcribe Orders [facility] Laboratory [address] [place] [address] Donnell Alexandra MD [address] [place] [phone] [email or web address] Pre-employment health screening examination (Primary Dx) Social [...] * Quantiferon-TB Gold (10/04/2018 1:44 PM EDT) [facility] QuantiFERON-TB Gold Negative Negative [place] [facility] MED/PATH SUPERIOR Comment: (NOTE) No [...] SUPERIOR DR Mitogen minus Nil 9.63 IU/mL [facility] LAB MED/PATH SUPERIOR Nil Result 0.01 IU/mL [facility] LAB MED/PATH [place] Blood 10/04/2018 1:44 PM EDT 10/04/2018 1:45 PM EDT us Donnell Alexandra MD LAB BLOOD ORDERABLES Final R esult [facility] LAB MED/PATH [address] [place] [address] documented in this encounter Visit Diagnoses Diagnosis Pre-employment health screening examination- Primary Health examination of defined subpopulation documented in this encounter Care Teams Communications Representative Relationship Specialty Start Date End Date Pcp, Unknown PCP - General 10/04/18 documented as of this encounter Additional Source Comments The information contained in this document represents components of the legal health record. It is not the complete legal health record.[facility]
[2024-09-25 13:57] LABS: MANUAL DIFF FLAG NO
[2024-09-25 14:04] LABS: Hematocrit 40.2 % (37.0-47.0); Hemoglobin 13.1 g/dl (12.0-16.0); Imm Gran Abs Auto 0.02 X10*3/uL (0.00-0.03); Imm Gran Pct Auto 0.3 % (0.0-0.4); Lymphocytes Absolute Auto 2.1 X10*3/uL (1.2-4.9); Mean Corpuscular HGB Conc 32.6 g/dl (31.0-35.0); Mean Corpuscular Hemoglobin 30.4 pg (27.0-33.0); Mean Corpuscular Volume 93.3 fL (80.0-98.0); NRBC Abs Auto 0.000 X10*3/uL (0.0-0.012); NRBC Pct Auto 0.0 /100WBC (0.0-0.2); Platelet Count 279 X10*3/uL (160-400); Red Blood Count 4.31 X10*6/uL (4.20-5.50); White Blood Count 6.9 X10*3/uL (4.8-10.8)
[2024-09-25 14:19] LABS: Appearance Urine Clear; Glucose Urine UA Negative (Negative); PH 5.5 (5.0-9.0); Specific Gravity - Urine 1.020 (1.005-1.025); UMIC TRIGGER UACC YES
[2024-09-25 14:46] LABS: Alanine Aminotransferase 30 U/L (0-31); Albumin Level 4.3 g/dL (3.5-5.0); Alkaline Phosphatase 109 U/L (39-117); Anion Gap 12 (12-20); Aspartate Amino Transferase 32 U/L (5-31); Blood Urea Nitrogen 8 mg/dL (9-16); Calcium 9.6 mg/dL (8.4-10.2); Carbon Dioxide 27 mmol/L (22-29); Chloride 106 mmol/L (96-108); Cholesterol 226 mg/dL (<200); Estimated Glomerular Filt Rate > 60; HDL Cholesterol 41 mg/dL (>40); Iron 78 mcg/dL (30-160); Percent Iron Saturation 28 % (15-50); Potassium 4.1 mmol/L (3.3-5.1); Sodium 141 mmol/L (135-145); Total Iron Binding Capacity 280 mcg/dL (228-428); Total Protein 7.4 g/dL (6.5-8.0); Triglycerides 91 mg/dL (<150); Unsaturated Iron Binding 202 ug/dL
[2024-09-25 15:03] LABS: Free T4 (Free Thyroxine) 0.84 ng/dL (0.71-1.85)
[2024-09-25 15:09] LABS: Folate 6.1 ng/mL (> or = 4.0); Vitamin B12 238 pg/mL (200-900)
== END 2024-09-25 13:20 | disposition home or self-care (01) ==
LOC: HO.XRAY 13:19
DX: Z00.00 Encounter for general adult medical examination without abnormal findings (principal); Z13.21 Encounter for screening for nutritional disorder; Z13.29 Encounter for screening for other suspected endocrine disorder; Z13.220 Encounter for screening for lipoid disorders; N20.0 Calculus of kidney; D64.9 Anemia, unspecified; L65.9 Nonscarring hair loss, unspecified; R22.1 Localized swelling, mass and lump, neck
CPT/HCPCS: 36415; 71046; 80053; 80061; 81001; 82306; 82607; 82672; 82746; 83540; 84439; 84443; 85025

== ENCOUNTER → 2024-09-25 13:24 | Outpatient (BNV) | payer OTHER, SELFPAY | PROVIDERS: Visit Provider Radiology Diagnostic Radiology | DX: M41.9 Scoliosis, unspecified (principal) | CPT/HCPCS: 71046 ==

== ENCOUNTER 2024-09-26 12:38 | Outpatient (REF) | payer OTHER, SELFPAY ==
--- NOTE | ~2024-09-26 | MM_ITS ---
EXAMINATION: MM SCREENING DIGITAL BREAST TOMOSYNTHESIS, BILATERAL CLINICAL INFORMATION: Screening. Asymptomatic. COMPARISON: Mammography: Comparison is made with available priors TECHNIQUE: Digital breast mammography with tomosynthesis is performed in both the craniocaudal and mediolateral oblique views along with computer-aided detection (CAD). FINDINGS: There are scattered areas of fibroglandular density (ACR BI-RADS breast composition Category b). There are no significant masses, abnormal calcifications, or other abnormalities. MM/MM tomosynthesis screening BI IMPRESSION: No mammographic evidence of malignancy. ASSESSMENT: BI-RADS BI-RADS 1 - Negative RECOMMENDATION: Routine annual mammography screening. 1 year F/U This examination should not preclude the clinical evaluation of a suspicious palpable abnormality. This patient's information was entered into a reminder system with a target due date for their next mammogram. Electronically signed by: Rosanna Clemens DO 09/30/2024 01:01 PM EDT
--- OUTSIDE RECORDS SUMMARY | 2024-09-26 12:40 | XMS_ITS | Encounter Summary ---
Author Organization [facility] Address [address] [place] [address] Phone Care Team Providers Care Director Employee Communications Name Role Phone Pcp, Unknown Primary Care Provider Unavailabl e Encounter Details Date Type Department Care Team (Late st Contact Info) Description 10/04/2018 Transcribe Orders [facility] Laboratory [address] [place] [address] Donnell Alexandra MD [address] [place] [phone] [email or web address] Pre-employment health screening examination (Primary Dx) Social [...] * Quantiferon-TB Gold (10/04/2018 1:44 PM EDT) [facility] QuantiFERON-TB Gold Negative Negative [place] [facility] LAB MED/PATH SUPERIOR Comment: (NOTE) No [...] SUPERIOR DR Mitogen minus Nil 9.63 IU/mL [facility] LAB MED/PATH [facility] Nil Result 0.01 IU/mL [facility] LAB MED/PATH [place] Blood 10/04/2018 1:44 PM EDT 10/04/2018 1:45 PM EDT us Donnell Alexandra MD LAB BLOOD ORDERABLES Final R esult [facility] LAB MED/PATH [address] [place] [address] documented in this encounter Visit Diagnoses Diagnosis Pre-employment health screening examination- Primary Health examination of defined subpopulation documented in this encounter Care Teams Director Employee Communications Relationship Specialty Start Date End Date Pcp, Unknown PCP - General 10/04/18 documented as of this encounter Additional Source Comments The information contained in this document represents components of the legal health record. It is not the complete legal health record.[facility]
== END 2024-09-26 12:39 | disposition home or self-care (01) ==
LOC: HO.MAMMO 12:38
DX: Z12.31 Encounter for screening mammogram for malignant neoplasm of breast (principal)
CPT/HCPCS: 77063; 77067

== ENCOUNTER → 2024-09-26 13:30 | Outpatient (BNV) | payer OTHER, SELFPAY | PROVIDERS: Visit Provider Internal Medicine | DX: Z12.31 Encounter for screening mammogram for malignant neoplasm of breast (principal) | CPT/HCPCS: 77063; 77067 ==

== ENCOUNTER 2024-11-04 08:16 | Outpatient (REF) | payer OTHER, SELFPAY ==
--- NOTE | ~2024-11-04 | CT_ITS ---
CLINICAL HISTORY: R22.1 - Localized swelling, mass and lump, neck CT soft tissue neck with contrast Comparison: None provided Findings: The visualized intracranial contents are unremarkable. No prevertebral fluid. Epiglottis is within normal limits. Pharyngeal mucosal space and parapharyngeal fat are normal. Salivary glands are unremarkable. No sialoliths. No suspicious thyroid nodules. A BB marker is noted of the midline in the area of the thyroid gland. There is opacification of the left maxillary sinus. Nonspecific bilateral cervical lymph nodes. No consolidation at the lung apices. No acute fractures. Degenerative changes of the cervical spine. IMPRESSION: A BB marker is noted of the midline in the area of the thyroid gland. No mass or lymphadenopathy in the area. Opacification of the left maxillary sinus. Additional findings as above. This document has been electronically signed by: Neil Baires MD on 11/05/2024 14:57:04
--- OUTSIDE RECORDS SUMMARY | 2024-11-04 08:33 | XMS_ITS | Clinical Summary ---
Author Organization [facility] Address [address] [place] [address] [place] [phone] Phone Care Team Providers Care Informatics Pharmacist Name Role Phone Pcp, Unknown Primary Care Provider Unavailabl e Social History Tobacco Use Types Packs/Day Years Used Date Smoking Tobacco: Never Assessed Education Answer Date Recorded Are you interested in more education? Not on mitul e 06/02/2022 Are you concerned about learning? Not on file 06/02/2022 No 06/02/2022 No 06/02/2022 Digital Access Answer Date Recorded No 07/04/2022 No 07/04/2022 No 07/04/2022 Reliable internet access at home? Not on file 07/04/2022 Device with a working camera? Not on file Comments Unknown Sex and Gender Information Value Date Recorded Sex Assigned at Not on file Legal Sex Female 1:32 PM EDT Gender Identity Not on file Sexual Orientation Not on file Plan of Treatment Not on file Medical Devices Not on file Insurance [facility] [employer] [place] [address] [place] [address] [place] [address] [place] [address] [place] [address] [place] [address] [place] [address] [place] [address] [place] [address] [facility] ACO [facility] A[facility] Care Teams Informatics Pharmacist Relationship Specialty Start Date End Date Pcp, Unknown PCP - General 10/04/18 Additional Source Comments The information contained in this document represents components of the legal health record. It is not the complete legal health record.[facility]
--- OUTSIDE RECORDS SUMMARY | 2024-11-04 08:33 | XMS_ITS | Encounter Summary ---
Author Organization [facility] Address [address] [place] [address] Phone Care Team Providers Care Almond Paste Molder Name Role Phone Pcp, Unknown Primary Care Provider Unavailabl e Encounter Details Date Type Department Care Team (Late st Contact Info) Description 10/04/2018 Transcribe Orders [facility] Laboratory [address] [place] [address] Donnell Alexandra MD [address] [place] [phone] [email or web address] Pre-employment health screening examination (Primary Dx) Social [...] * Quantiferon-TB Gold (10/04/2018 1:44 PM EDT) [facility] QuantiFERON-TB Gold Negative Negative [place] [facility] LAB MED/PATH SUPERIOR Comment: (NOTE) No [...] SUPERIOR DR Mitogen minus Nil 9.63 IU/mL [facility] MED[facility]PATH [place] Nil Result 0.01 IU/mL [facility] MED/PATH [place] Blood 10/04/2018 1:44 PM EDT 10/04/2018 1:45 PM EDT us Donnell Alexandra MD LAB BLOOD ORDERABLES Final R esult [facility] MED/PATH [facility] [address] [place] [address] documented in this encounter Visit Diagnoses Diagnosis Pre-employment health screening examination- Primary Health examination of defined subpopulation documented in this encounter Care Teams Almond Paste Molder Relationship Specialty Start Date End Date Pcp, Unknown PCP - General 10/04/18 documented as of this encounter Additional Source Comments The information contained in this document represents components of the legal health record. It is not the complete legal health record.[facility]
[2024-11-04] MEDS: iohexoL 350 MG/ML 100 ML INFUS..BTL 60 ML IV (09:53)
[2024-11-04 12:01] LABS: Creatinine POC 0.9 mg/dL (0.5-1.4); GFR POC 60
== END 2024-11-04 08:17 | disposition home or self-care (01) ==
LOC: HO.CT 08:16
DX: R22.1 Localized swelling, mass and lump, neck (principal)
CPT/HCPCS: 70491; 82565; Q9967

== ENCOUNTER → 2024-11-04 08:20 | Outpatient (BNV) | payer OTHER, SELFPAY | PROVIDERS: Visit Provider Nuclear Medicine | DX: R22.1 Localized swelling, mass and lump, neck (principal) | CPT/HCPCS: 70491 ==

== ENCOUNTER 2024-12-19 14:43 | Outpatient (AMB) | payer OTHER, SELFPAY ==
[2024-12-19 14:45] VITALS: BP 110/80; PULSE 105; TEMP 36.8; O2SAT 98; BMI 32.8
--- NOTE | 2024-12-19 14:45 | MHC.PC.OV ---
Vital Signs 12/19/24 14:45 Height 5 ft 7 in Weight 209 lb 2 oz BMI 32.8 BP 110/80 Blood Pressure Location Lt brachial Position Sitting Pulse 105 H Pulse Source Pulse Oximeter Temp 98.3 F Temp Source Temporal Artery Scan Pulse Oximetry (%) 98 Oxygen Delivery Method Room Air Intake Visit Reasons: Annual Exam Clerical Warehouseman Required: No Accompanied by: Self / Same As Patient Allergies No Known Allergies Allergy (Mild, Verified 12/19/24 15:03) NOT APPLICABLE Medication List - Last Reconciled 12/19/24 by Gretchen Hsu PA-C lidocaine 5% 1 patch topical DAILY metronidazole 500 mg PO BID 7 days metronidazole 0.75% 1 appl topical BEDTIME terconazole 0.8% 1 appful vaginal BEDTIME 3 days Tobacco use date assessed: 09/18/24 Dental Screening Dental Screen Date: 12/19/24 Did you have a dental visit in the last 12 months?: Yes Did you have a dental problem in the last 6 months where you did not have access to dental care?: No Was dental information given to patient?: Patient has dentist HPI Annual Exam HPI Details 49 year old female with past medical history of anemia, AUB last seen 09/2024 coming in for annual exam.? Presenting for management of hair loss, a scalp lump, and medication refills. She reports significant hair shedding and developing bald spots for a couple of years, which have been progressively worsening and spreading. This is associated with scalp pain and a constant itching sensation. The patient also has a painful lump on her scalp that has been present for years. She continues to experience a sensation in her neck, for which a prior CAT scan was negative. colonoscopy: following with GI mammogram: 09/2024 pap smear: appt 02/2025 vaccines: VTD [facility] Medical History Intermittent palpitations Back pain Anemia Surgical History History of endometrial ablation History of cholecystectomy Family History Father No problems noted. Mother Diabetes Hypertension Sister Asthma Family history of thyroid problem Social History (Reviewed 12/19/24 @ 15:08 by MINERVA Brewster Housing: Apartment Alcohol intake: current Alcohol intake frequency: holidays/special occasions only Alcohol type: beer Patient Tobacco Use Status: Current everyday Tobacco user Tobacco use type: Cigarette Cigarette Packs Per Day: 0.5 Cigarettes Per Day: 10 Years Smoked: 20 e-Cigarette/Vaping Use: Never Used Second Hand Smoke Exposure: Yes service: No Current occupational status: employed Cognitive needs: No Hearing needs: No Vision needs: No Female Reproductive History Menstrual Age of Menarche: 11 Questionnaire PHQ-9 Over the last 2 weeks, how often have you been bothered by any of the following problems? 1. Little interest or pleasure in doing things: not at all 2. Feeling down, depressed, or hopeless: not at all 3. Trouble falling or staying asleep, or sleeping too much: not at all 4. Feeling tired or having little energy: not at all 5. Poor appetite or overeating: not at all 6. Feeling bad about yourself - or that you are a failure or have let yourself or your family down: not at all 7. Trouble concentrating on things, such as reading the newspaper or watching television: not at all 8. Moving or speaking so slowly that other people could have noticed. Or the opposite - being so fidgety or restless that you have been moving around a lot more than usual: not at all 9. Thoughts that you would be better off or of hurting yourself in some way: not at all Total score: 0 Depression Screening Interpretation: Negative Depression Screening Done: Yes Source: Developed by Drs. Fan Campos, Marva Vaca, Ever Edwards and colleagues, with an educational noemi from [employer]. Thrive Questionnaire Date Thrive assessed: 09/18/24 I am a: Patient What is your living situation today?: I have a steady place to live Within the past 12 months, did the food you bought not last and you didn't have the money to get more?: Sometimes True Within the past 12 months, did you worry whether your food would run out before you got money to buy more?: Sometimes True Do you have trouble paying for medicines?: No Do you have trouble getting transportation to medical appointments?: No Do you have trouble paying your heating and electricity bill?: No Do you have trouble taking care of your child, family member or friend?: No Do you have trouble with day-to-day activities such as bathing, preparing meals, shopping, managing finances, etc.?: No Are you currently unemployed and looking for a job?: No Are you interested in more education?: No Please select the resources that you would like help with: None Currently or been in a relationship where the following occur: No concerns reported THRIVE Score: 2 AUDIT C Alcohol Use Questionnaire (AUDIT-C) 1. How often do you have a drink containing alcohol?: Monthly or less 2. How many drinks containing alcohol do you have on a typical day when you are drinking?: 1 or 2 3. How often do you have six or more drinks on one occasion?: Less than monthly Total Score: 2 FRANCOIS-7 AMB Questionnaire FRANCOIS-7 Date FRANCOIS - 7 assessed: 09/18/24 Feeling nervous, anxious, or on edge: 1 = Several days Not being able to stop or control worryin = Not at all Worrying too much about different things: 1 = Several days Trouble relaxin = Several days Being so restless that it is hard to sit still: 0 = Not at all Becoming easily annoyed or irritable: 0 = Not at all Feeling afraid as if something awful might happen: 0 = Not at all Total FRANCOIS-7 score (0-4 normal; 5-9 mild; 10-14 moderate; 15-21 severe): 3 Source: Developed by Drs. Fan Campos, Marva Vaca, Ever Edwards and colleagues, with an educational noemi from [employer]. Review of Systems Const Denies body aches, Denies fatigue, Denies fever(s), Denies frequent falls, Denies headache(s) and Denies weakness Eyes Reports no additional complaints and Denies change in vision ENT Denies dysphagia, Denies dizziness, Denies facial pain, Denies headache(s) and Denies odynophagia Card Denies chest pain, Denies syncope, Denies irregular heart rhythm, Denies leg edema, Denies lightheadedness and Denies dyspnea Resp Denies cough and Denies dyspnea GI Denies abdominal pain, Denies constipation, Denies dysphagia, Denies dyspepsia, Denies diarrhea, Denies nausea, Denies odynophagia and Denies vomiting Details: vaginal d/c Denies urinary frequency, Denies dysuria, Denies urinary hesitancy and Denies urinary urgency Musc Denies back pain and Denies myalgias Skin/Breast Reports system reviewed and no additional complaints, except as documented Neuro Denies dizziness, Denies syncope, Denies frequent falls, Denies headache(s) and Denies weakness Psych Reports no additional complaints Endo Denies fatigue Physical exam (Primary Care) Vital Signs: Last Vital Signs Temp 98.3 F 12/19/24 14:45 Pulse 105 H 12/19/24 14:45 BP 110/80 12/19/24 14:45 Pulse Ox 98 12/19/24 14:45 Oxygen Delivery Method Room Air 12/19/24 14:45 BMI result Body Mass Index 32.8 Tobacco/Smoking Status: Tobacco use Status Tobacco use date assessed 09/18/24 12/19/24 14:50 Patient Tobacco Use Status Current everyday Tobacco 12/19/24 14:50 Tobacco use type Cigarette 12/19/24 14:50 e-Cigarette/Vaping Use Never Used 12/19/24 14:50 PHQ-9: PHQ-9 Score PHQ-9: Total score 0 12/19/24 15:03 Depression Screening Interpretation: Negative Thrive Assessment: Date of Thrive Assessment Date Thrive assessed 09/18/24 12/19/24 14:50 Currently or been in a relationship where the following occur: No concerns reported Const General: cooperative, healthy appearing, comfortable and no acute distress Orientation/consciousness: patient oriented x3 HENMT Other: no lesions on the scalp noted. There are areas of hair thinning without demarcation or kerions Head: Yes normocephalic Head images:  1. soft, tender mass with smooth edges Ears: hearing grossly normal bilaterally, external ears normal, TM's normal bilaterally and EAC's normal General nose exam: Normal external nose present Face and sinus: Yes normal facial exam and Yes sinuses nontender Mouth: Normal oral and palatal mucosa present and tongue normal Throat: Yes posterior oropharynx normal Eyes General: appearance normal, both eyes and all related structures Conjunctivae: conjunctivae normal Pupils: Equal, round and reactive pupils present EOM: EOMs intact bilaterally and No Nystagmus present Neck Neck: Yes normal visual inspection, Yes full ROM and Yes no lymphadenopathy Chest Chest palpation & inspection: normal inspection of the chest Resp Effort & Inspection: normal respiratory effort Auscultation: clear to auscultation bilaterally, no crackles, no rales, no rhonchi, no wheezes and breath sounds present Cardio Rate: regular rate Rhythm: regular rhythm Peripheral pulses: radial pulses present and dorsalis pedis present GI Inspection: Yes normal to inspection and No Abdominal wall edema Palpation (GI): Soft to palpation, not firm and nontender Auscultation: normal bowel sounds Rectal Exam - Female: deferred General: Yes no CVA tenderness Back/Spine/Pelvis Back: no CVA tenderness Skin General skin exam: no rashes or lesions noted Neuro General: patient oriented x3 Cranial nerves: Yes Equal, round and reactive pupils present, Yes Midline tongue present, Yes Ability to bilaterally elevate shoulders present and No Nystagmus present Gait exam (Neuro): Normal gait present Extrem General: Yes normal to inspection, Yes full ROM, No no pedal edema and No edema Psych Speech and movement: Normal speech and movement present Affect: normal affect Insight: Good insight present (Psych) Judgement: Good judgement present (Psych) Coding Level of Care Code Est Pt Prev Care 40-64y(75251) Diagnoses Annual physical exam Z00.00 Tobacco use disorder F17.200 Rectal bleeding K62.5 Neck mass R22.1 Hypercholesteremia E78.00 Hair loss L65.9 Scalp lump R22.0 Vulvovaginitis N76.0 Assessment & Plan Assessment & Plan (1) Annual physical exam: Code(s): Z00.00 - Encounter for general adult medical examination without abnormal findings Category: Medical Plan: Patient is up to date on all recommended routine screenings and vaccinations for her age. Blood work is up to date and has been reviewed with the patient today. Healthy diet and regular exercise is encouraged. PLan to follow up in 3 months or sooner as needed. (2) Tobacco use disorder: Code(s): F17.200 - Nicotine dependence, unspecified, uncomplicated Category: Medical Plan: Smoking cigarettes and the use of tobacco can be harmful. We discussed the importance of stopping and options to aid in smoking cessation. Declining NRT or medical management at this time (3) Rectal bleeding: Code(s): K62.5 - Hemorrhage of anus and rectum Category: Medical Plan: Referral was placed to GI at last visit and has upcoming appt. (4) Neck mass: Code(s): R22.1 - Localized swelling, mass and lump, neck Category: Medical Plan: The patient reports a persistent sensation in her neck, for which a prior CAT scan and chest x-ray were negative. The plan is to proceed with the scheduled swallow study. The patient will also see GI for evaluation. (5) Hypercholesteremia: Code(s): E78.00 - Pure hypercholesterolemia, unspecified Category: Medical Plan: Avoid foods that are high in cholesterol such as red meat, fried foods, eggs and baked goods. Triglyceride goal of less than 150 and LDL goal of less than 130. Discussed dietary and lifestyle modification and plan to follow up in 3 months. (6) Hair loss: Code(s): L65.9 - Nonscarring hair loss, unspecified Category: Medical Plan: The patient's hair loss is chronic and progressive, with associated scalp pain and pruritus. Recent blood work for common causes like thyroid or hormone imbalance was normal. Prescription-strength topical minoxidil foam will be started twice daily. Oral minoxidil was considered but deferred due to the risk of hypotension given the patient's baseline low blood pressure. A referral will be placed to Dermatology for further evaluation. (7) Scalp lump: Code(s): R22.0 - Localized swelling, mass and lump, head Category: Medical Plan: The patient has a painful, palpable lump on her scalp that has been present for years. Based on the examination, it is likely a cyst. A referral to General Surgery will be placed for evaluation and possible removal. (8) Vulvovaginitis: Code(s): N76.0 - Acute vaginitis Category: Medical Plan: Gel sent to pharmacy Plan This note was constructed using voice recognition software. While every effort has been made to ensure accuracy and electric motor rebuilder, still areas may have been included sometimes these areas may affect the content or meeting of the given symptoms. Total time spent caring for the patient today was 30 minutes. This includes time spent before the visit reviewing the chart, time spent during the visit, and time spent after the visit and documentation. Patient was informed and verbally consented to the use of an ambient scribe for clinic note documentation during this visit. Orders: Orders Lipid Panel Today E78.00 - Pure hypercholesterolemia, unspecified Referrals Dermatology Referral L65.9 - Nonscarring hair loss, unspecified General Surgery Referral R22.0 - Localized swelling, mass and lump, head Medications: New minoxidil 5% 1 mL topical BID 120 mL 0RF Refilled metronidazole 0.75% 1 appl topical BEDTIME 45 grams 0RF Discontinued metronidazole Discontinued Reason: Patient no longer taking 500 mg PO BID 7 days 14 tabs 0RF
--- OUTSIDE RECORDS SUMMARY | 2024-12-19 22:11 | XMS_ITS | Encounter Summary ---
Author Organization [facility] Address [address] [place] [address] Phone Care Team Providers Care Decal Applier Name Role Phone Pcp, Unknown Primary Care Provider Unavailabl e Encounter Details Date Type Department Care Team (Late st Contact Info) Description 10/04/2018 Transcribe Orders [facility] Phle[facility] [address] [place] [address] Donnell Alexandra MD [address] [place] [phone] [email or web address] Pre-employment health screening examination (Primary Dx) Social [...] * Quantiferon-TB Gold (10/04/2018 1:44 PM EDT) [facility] QuantiFERON-TB Gold Negative Negative [facility] Comment: (NOTE) No interferon-gamma response to M. tuberculosis antigens was detected. Infection with M. tuberculosis is unlikely. A single negative result does not exclude infection with M. tuberculosis. In patients at high risk for M.tuberculosis infection, a second test should be considered in accordance with the 2017 ATS/IDSA/CDC Clinical Practice Guidelines for Diagnosis of Tuberculosis in Adults and Children [Simoninskassandran DM et. al. Clin. Infect. Dis. 2017;64(2):111-115]. The reference range for the 'TB1 Ag minus Nil Result' and 'TB2 Ag minus Nil Result' is an Interferon-gamma level <0.35 IU/mL. TB1 Ag minus Nil 0.01 IU/mL [facility] TB2 Ag minus Nil 0.01 IU/mL [facility] [address] Mitogen minus Nil 9.63 IU/mL [facility] Nil Result 0.01 IU/mL [facility] [place] Blood 10/04/2018 1:44 PM EDT 10/04/2018 1:45 PM EDT us Donnell Alexandra MD LAB BLOOD ORDERABLES Final R esult Performing Organization Address City/State/[facility] Co de Phone Number [facility] [address] [place] [address] documented in this encounter Visit Diagnoses Diagnosis Pre-employment health screening examination- Primary Health examination of defined subpopulation documented in this encounter Care Teams Decal Applier Relationship Specialty Start Date End Date Pcp, Unknown PCP - General 10/04/18 documented as of this encounter Additional Source Comments The information contained in this document represents components of the legal health record. It is not the complete legal health record.[facility]
--- OUTSIDE RECORDS SUMMARY | 2024-12-19 22:11 | XMS_ITS | Clinical Summary ---
Author Organization [facility] Address [address] [place] [address] [place] [phone] Phone Care Team Providers Care Hair Sample Matcher Name Role Phone Pcp, Unknown Primary Care [...] file Medical Devices Not on file Insurance [facility] [place] [address] [place] [address] [place] [address] [place] [address] [address] [place] [address] [place] [address] [place] [phone] [facility] Care Teams Hair Sample Matcher Relationship Specialty Start Date End Date Pcp, Unknown PCP - General 10/04/18 Additional Source Comments The information contained in this document represents components of the legal health record. It is not the complete legal health record.[facility]
== END 2024-12-19 15:32 | disposition home or self-care (01) ==
LOC: HO.HMCH 14:44
DX: Z00.00 Encounter for general adult medical examination without abnormal findings (principal); F17.200 Nicotine dependence, unspecified, uncomplicated; K62.5 Hemorrhage of anus and rectum; R22.1 Localized swelling, mass and lump, neck; E78.00 Pure hypercholesterolemia, unspecified; L65.9 Nonscarring hair loss, unspecified; R22.0 Localized swelling, mass and lump, head; N76.0 Acute vaginitis

== ENCOUNTER → 2024-12-19 14:43 | Outpatient (BNVA) | payer OTHER, SELFPAY | PROVIDERS: PCP Internal Medicine | DX: Z00.00 Encounter for general adult medical examination without abnormal findings (principal); K62.5 Hemorrhage of anus and rectum; R22.1 Localized swelling, mass and lump, neck; E78.00 Pure hypercholesterolemia, unspecified; L65.9 Nonscarring hair loss, unspecified; R22.0 Localized swelling, mass and lump, head; N76.0 Acute vaginitis; F17.210 Nicotine dependence, cigarettes, uncomplicated | CPT/HCPCS: 99396 ==